=== PATIENT | male | born 1965 | race American Indian/Alaskan Native ===

== ENCOUNTER 2019-11-08 14:07 | Emergency (ER) | payer MEDICAID, OTHER ==
--- NOTE | 2019-11-08 14:09 | EDM.PDOC ---
ED HPI GENERAL MEDICAL PROBLEM - General Chief Complaint: General Stated Complaint: AMBULANCE Time Seen by Provider: 11/08/19 14:09 Source of Information: Reports: Patient, EMS, Old Records, RN, RN Notes Reviewed History Limitations: Reports: No Limitations - History of Present Illness INITIAL COMMENTS - FREE TEXT/NARRATIVE: Pt arrives to ER from home by [facility] with c/o fours days duration of abdominal pain and cramping, nausea, vomiting, loss of appetite, acute flare up of chronic low back pain with sciatica causing leg weakness, and high blood sugars. Pt states he has been too sick to his stomach to be able to keep any medications down for the last 4 days. He has Hx of DM Type 2 NID, GI bleed w/ varices, and chronic low pain. He denies fever, chills, cough, chest pain, body aches, sore throat, rash, shortness of breath, any recent travel, or exposures to Covid cases. Onset: Gradual Onset Date: 11/04/19 Duration: Constant, Getting Worse Location: Reports: Abdomen, Back Quality: Reports: Ache, Same as Previous Episode Severity: Severe Improves with: Reports: None Worsens with: Reports: Eating Associated Symptoms: Reports: No Other Symptoms Back Pain Score (Numeric/FACES): 10 - Related Data Allergies Allergy/AdvReac Type Severity Reaction Status Date / Time No Known Allergies Allergy Verified 11/08/19 14:08 Home Meds: Home Meds lisinopriL [Prinivil] 0 mg PO ASDIRECTED 01/24/19 [History] metFORMIN [Glucophage] 0 mg PO ASDIRECTED 01/24/19 [History] Acetaminophen [Tylenol] 650 mg PO Q6H PRN tablet 02/05/19 [Rx] LORazepam [Ativan] 0 mg IVPUSH TITRATE PRN syringe 02/05/19 [Rx] LORazepam [Ativan] 0 mg PO TITRATE PRN tablet 02/05/19 [Rx] Potassium Chloride [Klor-Con 10] 20 meq PO DAILY tab.er 02/05/19 [Rx] Past Medical History HEENT History: Reports: None Cardiovascular History: Reports: Hypertension Respiratory History: Reports: None Gastrointestinal History: Reports: Gastritis, GI Bleed Genitourinary History: Reports: None Musculoskeletal History: Reports: None Neurological History: Reports: Headaches, Chronic Psychiatric History: Reports: Addiction Endocrine/Metabolic History: Reports: Diabetes, Type II Hematologic History: Reports: None Immunologic History: Reports: None Oncologic (Cancer) History: Reports: None Dermatologic History: Reports: None Social & Family History - Family History Family Medical History: Noncontributory - Caffeine Use Caffeine Use: Reports: Coffee, Soda - Alcohol Use Alcohol Use History: Yes Alcohol Use Frequency: Not Used in Over 6 Months - Living Situation & Occupation Living situation: Reports: with Family Occupation: Unemployed ED ROS GENERAL - Review of Systems Review Of Systems: Comprehensive ROS is negative, except as noted in HPI. ED EXAM, GENERAL - Physical Exam Exam: See Below Exam Limited By: No Limitations General Appearance: Alert, Mild Distress, Other (Active emesis) Eye Exam: Bilateral Eye: EOMI, Normal Inspection (No scleral icterus), PERRL Nose: Normal Inspection, Normal Mucosa, No Blood Throat/Mouth: Normal Lips, Normal Oropharynx, Normal Voice, No Airway Compromise , Other (Dry oral membranes) Head: Atraumatic, Normocephalic Neck: Normal Inspection, Supple, Non-Tender, Full Range of Motion Respiratory/Chest: No Respiratory Distress, Lungs Clear, Normal Breath Sounds, No Accessory Muscle Use, Chest Non-Tender Cardiovascular: Regular Rate, Rhythm, No Edema, Tachycardia Peripheral Pulses: 1+: Posterior Tibial (L), Posterior Tibial (R), 2+: Dorsalis Pedis (L), Dorsalis Pedis (R) GI/Abdominal: Normal Bowel Sounds, Soft, No Distention, No Abnormal Bruit, No Mass, Tender (Generalized abdominal tenderness). No: Guarding, Rigid, Rebound (Male) Exam: Deferred Rectal (Males) Exam: Deferred Back Exam: Decreased Range of Motion, Muscle Spasm (lumbar and lower thoracic), Paraspinal Tenderness (lumbar) Extremities: Normal Inspection, Normal Range of Motion, Non-Tender, Normal Capillary Refill, No Pedal Edema Neurological: Alert, Oriented, CN II-XII Intact, Normal Cognition, No Motor/ Sensory Deficits Psychiatric: Normal Mood Skin Exam: Warm, Dry, Intact, Normal Color, No Rash Course - Vital Signs Last Recorded V/S: Last Vital Signs Temp 97.8 F 11/08/19 14:15 Pulse 114 H 11/08/19 14:15 Resp 16 11/08/19 14:15 BP 145/91 H 11/08/19 14:15 Pulse Ox 97 11/08/19 14:15 - Orders/Labs/Meds Orders: Active Orders 24 hr Category Date Time Status Blood Glucose Check, Bedside [] ONETIME Care 11/08/19 14:15 Active Blood Glucose Check, Bedside [] ONETIME Care 11/08/19 15:50 Ordered Peripheral IV Care [RC] . DIRECTED Care 11/08/19 14:16 Active Insulin Regular, Human [HumuLIN R] 100 unit Med 11/08/19 15:45 Ordered Sodium Chloride 0.9% [Normal Saline] 99 ml IV TITRATE Sodium Chloride 0.9% [Normal Saline] 1,000 ml Med 11/08/19 15:50 Ordered IV .BOLUS Sodium Chloride 0.9% [Saline Flush] Med 11/08/19 14:15 Active 10 ml FLUSH ASDIRECTED PRN Sodium Chloride 0.9% with KCl [Normal Saline with 40 Med 11/08/19 15:45 Ordered mEq KCl] 1,000 ml IV ASDIRECTED Peripheral IV Insertion Adult [OM.PC] Stat Oth 11/08/19 14:15 Ordered Medication Orders Insulin Human Regular 100 unit (/ Sodium Chloride) 100 mls @ IV TITRATE [facility]; Protocol Potassium Chloride/Sodium Chloride (Normal Saline With 40 Meq Kcl) 1,000 mls @ 250 mls/hr IV ASDIRECTED [place] Sodium Chloride (Normal Saline) 1,000 mls @ 999 mls/hr IV .BOLUS ONE Stop: 11/08/19 16:50 Sodium Chloride (Saline Flush) 10 ml FLUSH ASDIRECTED PRN PRN Reason: Keep Vein Open Last Admin: 11/08/19 14:33 Dose: 10 ml Labs: Laboratory Tests 11/08/19 11/08/19 11/08/19 Range/Units 14:08 14:08 14:30 WBC (5.0-10.0) 10^3/uL RBC (4.6-6.2) 10^6/uL Hgb (14.0-18.0) g/dL Hct (40.0-54.0) % MCV (80-100) fL MCH (27.0-34.0) pg MCHC (33.0-35.0) g/dL Plt Count (150-450) 10^3/uL Neut % (Auto) (42.2-75.2) % Lymph % (Auto) (20.5-50.1) % [place] % (Auto) (2-8) % Eos % (Auto) (1.0-3.0) % Baso % (Auto) (0.0-1.0) % PT (9.0-12.0) SEC INR (0.9-1.2) APTT (22.0-34.0) SEC ABG pH 7.23 L (7.35-7.45) ABG pCO2 27 L (35-45) mmHg ABG pO2 84 (70-100) mmHg ABG HCO3 11.0 L (22-26) mmol/L ABG O2 Saturation 95 (95-100) % ABG Base Excess -15 L ((-2)-(+3)) mmol/L O2 Delivery Device Room air Sodium (136-145) mmol/L Potassium (3.5-5.1) mmol/L Chloride (98-107) mmol/L Carbon Dioxide (21-32) mmol/L Anion Gap (7-13) mEq/L BUN (7-18) mg/dL Creatinine (0.70-1.30) mg/dL Est Cr Clr Drug Dosing Estimated GFR (MDRD) BUN/Creatinine Ratio (No establ ref range) Glucose (74-99) mg/dL Lactic Acid (0.4-2.0) mmol/L Calcium (8.5-10.1) mg/dL Magnesium (1.8-2.4) mg/dL Total Bilirubin (0.2-1.0) mg/dL AST (15-37) U/L ALT (16-63) U/L Alkaline Phosphatase (46-116) U/L Total Protein (6.4-8.2) g/dL Albumin (3.4-5.0) g/dL Globulin Albumin/Globulin Ratio Amylase (25-115) U/L Lipase (73-393) U/L Urine Color Yellow (YELLOW) Urine Appearance Slightly cloudy (CLEAR) Urine pH 6.0 (5.0-9.0) Ur Specific [place] >= 1.030 (1.005-1.030) Urine Protein 100 H (NEGATIVE) Urine Glucose (UA) 500 H (NEGATIVE) Urine Ketones 15 H (NEGATIVE) Urine Occult Blood Moderate H (NEGATIVE) Urine Nitrite Negative (NEGATIVE) Urine Bilirubin Negative (NEGATIVE) Urine Urobilinogen 0.2 (0.2-1.0) mg/dL Ur Leukocyte Esterase Negative (NEGATIVE) Urine RBC 5-10 H /HPF Urine WBC 0-5 (0-5/HPF) /HPF Ur Epithelial Cells Few (NOT SEEN) /HPF Amorphous Sediment Rare (NOT SEEN) /HPF Urine Bacteria Rare (0-FEW/HPF) /HPF Urine Mucus Moderate H (NOT SEEN) /LPF Urine Opiates Screen Negative (NEGATIVE) Ur Oxycodone Screen Negative (NEGATIVE) Urine Methadone Screen Negative (NEGATIVE) Ur Barbiturates Screen Negative (NEGATIVE) U Tricyclic Antidepress Negative (NEGATIVE) Ur Phencyclidine Scrn Negative (NEGATIVE) Ur Amphetamine Screen Negative (NEGATIVE) U Methamphetamines Scrn Negative (NEGATIVE) Urine MDMA Screen Negative (NEGATIVE) U Benzodiazepines Scrn Negative (NEGATIVE) Urine Cocaine Screen Negative (NEGATIVE) U Marijuana (THC) Screen Negative (NEGATIVE) Ethyl Alcohol (0) mg/dL Ketones 11/08/19 11/08/19 11/08/19 Range/Units 14:52 14:52 14:52 WBC 11.0 H (5.0-10.0) 10^3/uL RBC 4.85 (4.6-6.2) 10^6/uL Hgb 14.8 (14.0-18.0) g/dL Hct 40.8 (40.0-54.0) % MCV 84.1 D (80-100) fL MCH 30.5 (27.0-34.0) pg MCHC 36.3 H (33.0-35.0) g/dL Plt Count 94 L (150-450) 10^3/uL Neut % (Auto) 85.8 H (42.2-75.2) % Lymph % (Auto) 3.2 L (20.5-50.1) % [place] % (Auto) 10.1 H (2-8) % Eos % (Auto) 0.0 L (1.0-3.0) % Baso % (Auto) 0.9 (0.0-1.0) % PT 10.4 (9.0-12.0) SEC INR 1.1 (0.9-1.2) APTT 23.5 (22.0-34.0) SEC ABG pH (7.35-7.45) ABG pCO2 (35-45) mmHg ABG pO2 (70-100) mmHg ABG HCO3 (22-26) mmol/L ABG O2 Saturation (95-100) % ABG Base Excess ((-2)-(+3)) mmol/L O2 Delivery Device Sodium 124 L (136-145) mmol/L Potassium 2.7 L (3.5-5.1) mmol/L Chloride 83 L (98-107) mmol/L Carbon Dioxide 14 L (21-32) mmol/L Anion Gap 29.7 H (7-13) mEq/L BUN 10 (7-18) mg/dL Creatinine 1.19 (0.70-1.30) mg/dL Est Cr Clr Drug Dosing TNP Estimated GFR (MDRD) > 60 BUN/Creatinine Ratio 8.4 (No establ ref range) Glucose 524 H* (74-99) mg/dL Lactic Acid (0.4-2.0) mmol/L Calcium 7.4 L (8.5-10.1) mg/dL Magnesium 2.2 (1.8-2.4) mg/dL Total Bilirubin 2.9 H (0.2-1.0) mg/dL AST 221 H (15-37) U/L ALT 119 H (16-63) U/L Alkaline Phosphatase 113 (46-116) U/L Total Protein 7.0 (6.4-8.2) g/dL Albumin 3.2 L (3.4-5.0) g/dL Globulin 3.8 Albumin/Globulin Ratio 0.84 Amylase 199 H (25-115) U/L Lipase 1572 H (73-393) U/L Urine Color (YELLOW) Urine Appearance (CLEAR) Urine pH (5.0-9.0) Ur Specific [place] (1.005-1.030) Urine Protein (NEGATIVE) Urine Glucose (UA) (NEGATIVE) Urine Ketones (NEGATIVE) Urine Occult Blood (NEGATIVE) Urine Nitrite (NEGATIVE) Urine Bilirubin (NEGATIVE) Urine Urobilinogen (0.2-1.0) mg/dL Ur Leukocyte Esterase (NEGATIVE) Urine RBC /HPF Urine WBC (0-5/HPF) /HPF Ur Epithelial Cells (NOT SEEN) /HPF Amorphous Sediment (NOT SEEN) /HPF Urine Bacteria (0-FEW/HPF) /HPF Urine Mucus (NOT SEEN) /LPF Urine Opiates Screen (NEGATIVE) Ur Oxycodone Screen (NEGATIVE) Urine Methadone Screen (NEGATIVE) Ur Barbiturates Screen (NEGATIVE) U Tricyclic Antidepress (NEGATIVE) Ur Phencyclidine Scrn (NEGATIVE) Ur Amphetamine Screen (NEGATIVE) U Methamphetamines Scrn (NEGATIVE) Urine MDMA Screen (NEGATIVE) U Benzodiazepines Scrn (NEGATIVE) Urine Cocaine Screen (NEGATIVE) U Marijuana (THC) Screen (NEGATIVE) Ethyl Alcohol 161 (0) mg/dL Ketones Positive 11/08/19 Range/Units 14:52 WBC (5.0-10.0) 10^3/uL RBC (4.6-6.2) 10^6/uL Hgb (14.0-18.0) g/dL Hct (40.0-54.0) % MCV (80-100) fL MCH (27.0-34.0) pg MCHC (33.0-35.0) g/dL Plt Count (150-450) 10^3/uL Neut % (Auto) (42.2-75.2) % Lymph % (Auto) (20.5-50.1) % [place] % (Auto) (2-8) % Eos % (Auto) (1.0-3.0) % Baso % (Auto) (0.0-1.0) % PT (9.0-12.0) SEC INR (0.9-1.2) APTT (22.0-34.0) SEC ABG pH (7.35-7.45) ABG pCO2 (35-45) mmHg ABG pO2 (70-100) mmHg ABG HCO3 (22-26) mmol/L ABG O2 Saturation (95-100) % ABG Base Excess ((-2)-(+3)) mmol/L O2 Delivery Device Sodium (136-145) mmol/L Potassium (3.5-5.1) mmol/L Chloride (98-107) mmol/L Carbon Dioxide (21-32) mmol/L Anion Gap (7-13) mEq/L BUN (7-18) mg/dL Creatinine (0.70-1.30) mg/dL Est Cr Clr Drug Dosing Estimated GFR (MDRD) BUN/Creatinine Ratio (No establ ref range) Glucose (74-99) mg/dL Lactic Acid 7.2 H* (0.4-2.0) mmol/L Calcium (8.5-10.1) mg/dL Magnesium (1.8-2.4) mg/dL Total Bilirubin (0.2-1.0) mg/dL AST (15-37) U/L ALT (16-63) U/L Alkaline Phosphatase (46-116) U/L Total Protein (6.4-8.2) g/dL Albumin (3.4-5.0) g/dL Globulin Albumin/Globulin Ratio Amylase (25-115) U/L Lipase (73-393) U/L Urine Color (YELLOW) Urine Appearance (CLEAR) Urine pH (5.0-9.0) Ur Specific [place] (1.005-1.030) Urine Protein (NEGATIVE) Urine Glucose (UA) (NEGATIVE) Urine Ketones (NEGATIVE) Urine Occult Blood (NEGATIVE) Urine Nitrite (NEGATIVE) Urine Bilirubin (NEGATIVE) Urine Urobilinogen (0.2-1.0) mg/dL Ur Leukocyte Esterase (NEGATIVE) Urine RBC /HPF Urine WBC (0-5/HPF) /HPF Ur Epithelial Cells (NOT SEEN) /HPF Amorphous Sediment (NOT SEEN) /HPF Urine Bacteria (0-FEW/HPF) /HPF Urine Mucus (NOT SEEN) /LPF Urine Opiates Screen (NEGATIVE) Ur Oxycodone Screen (NEGATIVE) Urine Methadone Screen (NEGATIVE) Ur Barbiturates Screen (NEGATIVE) U Tricyclic Antidepress (NEGATIVE) Ur Phencyclidine Scrn (NEGATIVE) Ur Amphetamine Screen (NEGATIVE) U Methamphetamines Scrn (NEGATIVE) Urine MDMA Screen (NEGATIVE) U Benzodiazepines Scrn (NEGATIVE) Urine Cocaine Screen (NEGATIVE) U Marijuana (THC) Screen (NEGATIVE) Ethyl Alcohol (0) mg/dL Ketones Meds: Medications Generic Name Dose Route Start Last Admin Trade Name Freq PRN Reason Stop Dose Admin Insulin Human Regular 100 unit 100 mls @ 11/08/19 15:45 / Sodium Chloride IV TITRATE [facility] Protocol 0.1 UNITS/KG/HR Potassium Chloride/Sodium Chloride 1,000 mls @ 250 mls/hr 11/08/19 15:45 Normal Saline With 40 Meq Kcl IV ASDIRECTED [facility] Sodium Chloride 1,000 mls @ 999 mls/hr 11/08/19 15:50 Normal Saline IV 11/08/19 16:50 .BOLUS ONE Sodium Chloride 10 ml 11/08/19 14:15 11/08/19 14:33 Saline Flush FLUSH 10 ml ASDIRECTED PRN Administration Keep Vein Open Discontinued Medications Generic Name Dose Route Start Last Admin Trade Name Freq PRN Reason Stop Dose Admin Haloperidol Lactate 2.5 mg 11/08/19 15:49 Haldol IVPUSH 11/08/19 15:50 ONETIME ONE Hydromorphone HCl 1 mg 11/08/19 14:17 11/08/19 14:33 Dilaudid IVPUSH 11/08/19 14:18 1 mg ONETIME ONE Administration Hydromorphone HCl 1 mg 11/08/19 15:48 Dilaudid IVPUSH 11/08/19 15:49 ONETIME ONE Sodium Chloride 1,000 mls @ 999 mls/hr 11/08/19 14:16 11/08/19 14:33 Normal Saline IV 11/08/19 15:16 999 mls/hr .BOLUS ONE Administration Insulin Human Regular 10 unit 11/08/19 14:17 11/08/19 14:58 Humulin R IV 11/08/19 14:18 10 units ONETIME ONE Administration Lorazepam 1 mg 11/08/19 14:49 11/08/19 14:58 Ativan IVPUSH 11/08/19 14:50 1 mg ONETIME ONE Administration Metoclopramide HCl 10 mg 11/08/19 15:10 11/08/19 15:37 Reglan IVPUSH 11/08/19 15:11 10 mg ONETIME ONE Administration Octreotide Acetate 50 mcg 11/08/19 14:17 11/08/19 14:32 Sandostatin IVPUSH 11/08/19 14:18 50 mcg ONETIME ONE Administration Ondansetron HCl 4 mg 11/08/19 14:16 11/08/19 14:32 Zofran IV 11/08/19 14:17 4 mg ONETIME ONE Administration Ondansetron HCl 4 mg 11/08/19 15:31 11/08/19 15:37 Zofran IV 11/08/19 15:32 4 mg ONETIME ONE Administration Pantoprazole Sodium 80 mg 11/08/19 14:16 11/08/19 14:32 Protonix Iv IVPUSH 11/08/19 14:17 80 mg .BOLUS ONE Administration - Re-Assessments/Exams Free Text/Narrative Re-Assessment/Exam: 11/08/19 15:50 Pt with DKA, alcohol abuse, Hx of GI bleed with varices, and with intractable vomiting and dry heaves. Unable to lay still for CT Abd/Pelvis at this time to evaluate pancreatitis. Pt will be transferred by ALS ground ambulance to [facility] in to a higher level of care. Dr. Zurita has accepted the pt as a direct admit. Departure - Departure Time of Disposition: 15:46 Disposition: DC/Tfer to Acute Hospital 02 Condition: Serious, Critical Clinical Impression: Alcohol abuse, Hypokalemia, Noncompliance with medication regimen DKA (diabetic ketoacidoses) Qualifiers: Diabetes mellitus type: type 2 Diabetes mellitus complication detail: without coma Qualified Code(s): E11.10 - Type 2 diabetes mellitus with ketoacidosis without coma Pancreatitis, alcoholic, acute Qualifiers: Acute pancreatitis complication: unspecified Qualified Code(s): K85.20 - Alcohol induced acute pancreatitis without necrosis or infection Alcohol intoxication Qualifiers: Complication of substance-induced condition: with unspecified complication Qualified Code(s): F10.929 - Alcohol use, unspecified with intoxication, unspecified Intractable vomiting Qualifiers: Vomiting type: unspecified Nausea presence: with nausea Qualified Code(s): R11.2 - Nausea with vomiting, unspecified - Discharge Information *PRESCRIPTION DRUG MONITORING PROGRAM REVIEWED*: Not Applicable *COPY OF PRESCRIPTION DRUG MONITORING REPORT IN PATIENT ALYSSA: Not Applicable Forms: ED Department Discharge, Interfacility Transfer [facility] Sepsis Event Note - Focused Exam Vital Signs: Vital Signs Temp Pulse Resp BP Pulse Ox 11/08/19 14:15 97.8 F 114 H 16 145/91 H 97 Date Exam was Performed: 11/08/19 Time Exam was Performed: 15:50 - My Orders Last 24 Hours: My Active Orders 11/08/19 14:15 Blood Glucose Check, Bedside [RC] ONETIME Sodium Chloride 0.9% [Saline Flush] 10 ml FLUSH ASDIRECTED PRN Peripheral IV Insertion Adult [OM.PC] Stat 11/08/19 14:16 Peripheral IV Care [RC] . DIRECTED 11/08/19 15:45 Insulin Regular, Human [HumuLIN R] 100 unit Sodium Chloride 0.9% [Normal Saline] 99 ml IV TITRATE Sodium Chloride 0.9% with KCl [Normal Saline with 40 mEq KCl] 1,000 ml IV ASDIRECTED 11/08/19 15:50 Blood Glucose Check, Bedside [RC] ONETIME Sodium Chloride 0.9% [Normal Saline] 1,000 ml IV .BOLUS - Assessment/Plan Last 24 Hours: My Active Orders 11/08/19 14:15 Blood Glucose Check, Bedside [RC] ONETIME Sodium Chloride 0.9% [Saline Flush] 10 ml FLUSH ASDIRECTED PRN Peripheral IV Insertion Adult [OM.PC] Stat 11/08/19 14:16 Peripheral IV Care [RC] . DIRECTED 11/08/19 15:45 Insulin Regular, Human [HumuLIN R] 100 unit Sodium Chloride 0.9% [Normal Saline] 99 ml IV TITRATE Sodium Chloride 0.9% with KCl [Normal Saline with 40 mEq KCl] 1,000 ml IV ASDIRECTED 11/08/19 15:50 Blood Glucose Check, Bedside [RC] ONETIME Sodium Chloride 0.9% [Normal Saline] 1,000 ml IV .BOLUS
[2019-11-08] MEDS ORDERED: Sodium Chloride 0.9% 10 ML Syringe FLUSH PRN (14:15)
[2019-11-08] MEDS ORDERED: Sodium Chloride 0.9% 1,000 ML IV ONE ×2 (14:16→15:50)
[2019-11-08] MEDS ORDERED: Pantoprazole 40 MG Vial IVPUSH ONE (14:16)
[2019-11-08] MEDS ORDERED: Ondansetron 4 MG/2 ML SDV IV ONE ×2 (14:16→15:31)
[2019-11-08] MEDS ORDERED: Octreotide 100 MCG/ML SDV IVPUSH ONE (14:17)
[2019-11-08] MEDS ORDERED: Insulin Regular, Human 100 Units/ML 3 ML Vial IV ONE (14:17)
[2019-11-08] MEDS ORDERED: HYDROmorphone 1 MG/ML Syringe IVPUSH ONE ×2 (14:17→15:48)
[2019-11-08] MEDS ORDERED: LORazepam 2 MG/ML SDV IVPUSH ONE (14:49)
[2019-11-08] MEDS ORDERED: Metoclopramide 10 MG/2 ML SDV IVPUSH ONE (15:10)
[2019-11-08 15:25] LABS: PTT,PARTIAL THROMBOPLSTIN TIME 23.5 SEC (22.0-34.0)
[2019-11-08 15:29] LABS: SODIUM,NA 124 mmol/L (136-145)
[2019-11-08 15:30] LABS: ANION GAP 29.7 mEq/L (7-13); CHLORIDE,CL 83 mmol/L (98-107)
[2019-11-08 15:32] LABS: BASE EXCESS ARTERIAL -15 mmol/L ((-2)-(+3)); O2 DELIVERY DEVICE ROOM AIR; O2 SATURATION ARTERIAL 95 % (95-100); PCO2 ARTERIAL 27 mmHg (35-45); PO2 ARTERIAL 84 mmHg (70-100)
[2019-11-08] MEDS ORDERED: Sodium Chloride 0.9% with KCl 1,000 ML IV SCH (15:45)
[2019-11-08] MEDS ORDERED: Haloperidol Lactate 5 MG/ML SDV IVPUSH ONE (15:49)
== END 2019-11-08 17:27 ==
LOC: DL.ED 14:07
DX: E11.10 Type 2 diabetes mellitus with ketoacidosis without coma (principal); F10.129 Alcohol abuse with intoxication, unspecified; K85.20 Alcohol induced acute pancreatitis without necrosis or infection; E87.6 Hypokalemia; I10 Essential (primary) hypertension; E11.9 Type 2 diabetes mellitus without complications; Z79.84 Long term (current) use of oral hypoglycemic drugs; Z91.14 Patient's other noncompliance with medication regimen; Z79.899 Other long term (current) drug therapy
CPT/HCPCS: 36415; 36600; 80053; 80305; 80307; 81001; 82009; 82150; 82803; 82962; 83605; 83690; 83735; 85025; 85610; 85730; 96361; 96374; 96375; 96376; 99285; C9113; J1170; J1630; J1815; J2060; J2354; J2405; J2765; J3480; J7030; J7050

== ENCOUNTER 2020-01-09 22:30 | Emergency (ER) | payer MEDICAID, OTHER ==
[2020-01-09] MEDS ORDERED: Fluorescein 1 MG Ophth Strip EYERT ONE (23:26)
[2020-01-09] MEDS ORDERED: Proparacaine 0.5% Ophth Soln 15 ML Bottle EYERT STA (23:26)
[2020-01-09] MEDS ORDERED: Tetracaine HCl/PF 0.5% 4 ML Bottle EYERT ONE (23:30)
--- NOTE | 2020-01-09 23:30 | EDM.PDOC ---
ED HPI GENERAL MEDICAL PROBLEM - General Chief Complaint: Eye Problems Stated Complaint: EYE PROBLEMS Time Seen by Provider: 01/09/20 23:26 Source of Information: Reports: Patient History Limitations: Reports: No Limitations - History of Present Illness INITIAL COMMENTS - FREE TEXT/NARRATIVE: Patient comes emergency department today with complaints of a very painful right eye. This patient 2 days ago developed a stye on his right upper eyelid. He has been putting some eyedrops [id number] into the his eye the stye is slowly gotten better. Although this morning when he woke up he had severe pain to his right eye. It is very bloodshot reddened and it is draining clear fluid. Does not recall scratching it or injuring it but he woke up with a very painful right eye. He denies any visual acuity changes. No diplopia. No flashers or floaters and no loss of vision. 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 Right Eye Pain Score (Numeric/FACES): 10 - Related Data Allergies Allergy/AdvReac Type Severity Reaction Status Date / Time No Known Allergies Allergy Verified 01/09/20 23:18 Home Meds: Home Meds lisinopriL [Prinivil] 0 mg PO ASDIRECTED 01/24/19 [History] metFORMIN [Glucophage] 0 mg PO ASDIRECTED 01/24/19 [History] Acetaminophen [Tylenol] 650 mg PO Q6H PRN tablet 02/05/19 [Rx] LORazepam [Ativan] 0 mg IVPUSH TITRATE PRN syringe 02/05/19 [Rx] LORazepam [Ativan] 0 mg PO TITRATE PRN tablet 02/05/19 [Rx] Potassium Chloride [Klor-Con 10] 20 meq PO DAILY tab.er 02/05/19 [Rx] Past Medical History HEENT History: Reports: None Cardiovascular History: Reports: Hypertension Respiratory History: Reports: None Gastrointestinal History: Reports: Gastritis, GI Bleed Genitourinary History: Reports: None Musculoskeletal History: Reports: None Neurological History: Reports: Headaches, Chronic Psychiatric History: Reports: Addiction Endocrine/Metabolic History: Reports: Diabetes, Type II Hematologic History: Reports: None Immunologic History: Reports: None Oncologic (Cancer) History: Reports: None Dermatologic History: Reports: None Social & Family History - Family History Family Medical History: Noncontributory - Tobacco Use Smoking Status *Q: Never Smoker Second Hand Smoke Exposure: No - Caffeine Use Caffeine Use: Reports: Soda - Recreational Drug Use Recreational Drug Use: No - Living Situation & Occupation Living situation: Reports: with Family Occupation: Unemployed ED ROS GENERAL - Review of Systems Review Of Systems: Comprehensive ROS is negative, except as noted in HPI. ED EXAM GENERAL W FULL EYE - Physical Exam Exam: See Below Exam Limited By: No Limitations General Appearance: Alert, WD/WN, Moderate Distress Eye Exam: Right Eye: Conjunctival Injection (Almost the entire sclera is very injected and minnimally swollen. There is clear exudate.), Corneal Abrasion (Tetracaine was instilled in the right eye. With immediate pain relief. With the use of fluorescein staining there is clearly about a 1 cm laceration just over the iris at the 6 o'clock position. The rest of the eye there is no abrasion. There is no foreign material.), Left Eye: Normal Inspection, Bilateral Eye: EOMI, PERRL Eyelids: Right: Stye, Left: Normal Appearance Conjunctiva & Sclera: Right: Conjunctival Edema, Discharge (Clear), Injected Cornea Exam: Right: Corneal Abrasion, Examined with Flourescein Pupils: Normal Accommodation Pupillary Size: Bilateral: 4 mm Pupillary Reaction: Bilateral: Brisk Respiratory/Chest: No Respiratory Distress Cardiovascular: Normal Peripheral Pulses Neurological: Alert, Oriented, Normal Cognition, No Motor/Sensory Deficits Psychiatric: Anxious Skin Exam: Warm, Dry, Intact, Normal Color Course - Vital Signs Last Recorded V/S: Last Vital Signs Temp 98.1 F 01/09/20 23:11 Pulse 101 H 01/09/20 23:11 Resp 19 01/09/20 23:11 BP 159/95 H 01/09/20 23:11 Pulse Ox 100 01/09/20 23:11 - Orders/Labs/Meds Meds: Medications Discontinued Medications Generic Name Dose Route Start Last Admin Trade Name Luisana PRN Reason Stop Dose Admin Hydrocodone Bitart/Acetaminophen 1 tab 01/09/20 23:36 01/09/20 23:51 [place] 325-10 Mg PO 01/09/20 23:37 1 tab ONETIME ONE Administration Ciprofloxacin 1 ml 01/09/20 23:45 01/09/20 23:53 Ciloxan 0.3% Ophth Soln EYERT Not Given Q4H ANSON Fluorescein Sodium 1 mg 01/09/20 23:26 01/09/20 23:35 Ful-Joy EYERT 01/09/20 23:27 1 mg ONETIME ONE Administration Ibuprofen 600 mg 01/09/20 23:36 01/09/20 23:52 Motrin PO 01/09/20 23:37 600 mg ONETIME ONE Administration Proparacaine HCl 1 ml 01/09/20 23:26 01/09/20 23:52 Proparacaine 0.5% Ophth Soln EYERT 01/09/20 23:27 Not Given NOW STA Tetracaine HCl 1 ml 01/09/20 23:30 01/09/20 23:35 Tetracaine 0.5% Steri-Unit Heather EYERT 01/09/20 23:31 1 dose ASDIRECTED ONE Administration - Re-Assessments/Exams Free Text/Narrative Re-Assessment/Exam: 01/10/20 00:51 What most likely happened is that the patient had the stye on his upper eyelid and during the night the stye was irritating him any accidentally caused a corneal abrasion to the right eye. The sclera is quite injected and minimally swollen. We will place him on antibiotic drops. Ciprofloxacin 2 drops every 4 hours. Given some pain medicine. I discussed with him if he is not improving rapidly over the next 24 to 48 hours he needs to see optometry or ophthalmology. He is understanding of this his questions were answered. Departure - Departure Time of Disposition: 23:38 Disposition: Home, Self-Care 01 Clinical Impression: Corneal abrasion Qualifiers: Encounter type: initial encounter Laterality: right Qualified Code(s): S05.01XA - Injury of conjunctiva and corneal abrasion without foreign body, right eye, initial encounter Stye Qualifiers: Laterality: right Eyelid: upper Qualified Code(s): H00.011 - Hordeolum externum right upper eyelid - Discharge Information Instructions: Corneal Abrasion, Corneal Abrasion, [id number] Referrals: PCP,None [Primary Care Provider] - Forms: ED Department Discharge Additional Instructions: Tylenol and or Ibuprofen as needed for pain. Warm packs 6 times a day to the stye on the right upper eye lid. No contacts until your eye symptoms have resolved. Cipro eye drops, 2 drops to the right eye every 4 hrs while awake for the next 5 days. Bottle dispensed from the ED. You should improve 90% in 24 hours, and 100% in 48 hours. If you are not following this pattern you must be seen by optometry or opthamology. If pain not controlled with above. [place] 1 tablet every 6 hrs with food as needed for pain caution sedation. Return to the ED if new or worsening symptoms. Sepsis Event Note (ED) - Evaluation Sepsis Screening Result: No Definite Risk - Focused Exam Vital Signs: Vital Signs Temp Pulse Resp BP Pulse Ox 01/09/20 23:11 98.1 F 101 H 19 159/95 H 100 - Assessment/Plan Assessment:: Right eye corneal abrasion. Right eye upper eye lid stye. Plan: Tylenol and or Ibuprofen as needed for pain. Warm packs 6 times a day to the stye on the right upper eye lid. No contacts until your eye symptoms have resolved. Cipro eye drops, 2 drops to the right eye every 4 hrs while awake for the next 5 days. Bottle dispensed from the ED. You should improve 90% in 24 hours, and 100% in 48 hours. If you are not following this pattern you must be seen by optometry or opthamology. If pain not controlled with above. [place] 1 tablet every 6 hrs with food as needed for pain caution sedation. Return to the ED if new or worsening symptoms.
[2020-01-09] MEDS ORDERED: Ibuprofen 600 MG Tab PO ONE (23:36)
[2020-01-09] MEDS ORDERED: Acetaminophen/HYDROcodone 325-10 MG Tab PO ONE (23:36)
[2020-01-09] MEDS ORDERED: Ciprofloxacin 0.3% Ophth Soln 5 ML Bottle EYERT SCH (23:45)
== END 2020-01-09 23:53 | disposition home or self-care (01) ==
LOC: DL.ED 22:30
DX: S05.01XA Injury of conjunctiva and corneal abrasion without foreign body, right eye, initial encounter (principal); H00.011 Hordeolum externum right upper eyelid; I10 Essential (primary) hypertension; E11.9 Type 2 diabetes mellitus without complications; Z79.84 Long term (current) use of oral hypoglycemic drugs; Z79.899 Other long term (current) drug therapy; X58.XXXA Exposure to other specified factors, initial encounter
CPT/HCPCS: 99283; A9270

== ENCOUNTER 2020-01-22 23:57 | Emergency (ER) | payer MEDICAID, OTHER ==
[2020-01-23] MEDS ORDERED: Aspirin 81 MG Tab.Chew PO ONE (00:06)
[2020-01-23] MEDS ORDERED: Nitroglycerin 0.4 MG Tab.SL SL ONE ×2 (00:07→00:59)
--- NOTE | 2020-01-23 00:34 | EDM.PDOC ---
ED HPI GENERAL MEDICAL PROBLEM - General Chief Complaint: Cardiovascular Problem Stated Complaint: CHEST PAIN Time Seen by Provider: 01/23/20 00:01 Source of Information: Reports: Patient History Limitations: Reports: No Limitations - History of Present Illness INITIAL COMMENTS - FREE TEXT/NARRATIVE: ED with c/o left chest pain has been intermittent for past couple of months to night more often and more severe. Seen at [facility] yesterday started on Lisnopril and metoprolol. Metformin. 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 No nausea. rates 7/10 worse with palpation and movement. Chest Pain Score (Numeric/FACES): 10 - Related Data Allergies Allergy/AdvReac Type Severity Reaction Status Date / Time No Known Allergies Allergy Verified 01/09/20 23:18 Home Meds: Home Meds lisinopriL [Prinivil] 10 mg PO ASDIRECTED 01/24/19 [History] metFORMIN [Glucophage] 1,000 mg PO ASDIRECTED 01/24/19 [History] Acetaminophen [Tylenol] 650 mg PO Q6H PRN tablet 02/05/19 [Rx] LORazepam [Ativan] 0 mg PO TITRATE PRN tablet 02/05/19 [Rx] Potassium Chloride [Klor-Con 10] 20 meq PO DAILY tab.er 02/05/19 [Rx] Metoprolol Tartrate [Lopressor] 37.5 mg PO BID 01/23/20 [History] glyBURIDE [Micronase] 5 mg PO DAILY 01/23/20 [History] Past Medical History HEENT History: Reports: None Cardiovascular History: Reports: Hypertension Respiratory History: Reports: None Gastrointestinal History: Reports: Gastritis, GI Bleed Genitourinary History: Reports: None Musculoskeletal History: Reports: None Neurological History: Reports: Headaches, Chronic Psychiatric History: Reports: Addiction Endocrine/Metabolic History: Reports: Diabetes, Type II Hematologic History: Reports: None Immunologic History: Reports: None Oncologic (Cancer) History: Reports: None Dermatologic History: Reports: None Social & Family History - Family History Family Medical History: Noncontributory - Tobacco Use Smoking Status *Q: Never Smoker Second Hand Smoke Exposure: No - Caffeine Use Caffeine Use: Reports: None - Recreational Drug Use Recreational Drug Use: No - Living Situation & Occupation Living situation: Reports: with Family Occupation: Unemployed ED ROS GENERAL - Review of Systems Review Of Systems: Comprehensive ROS is negative, except as noted in HPI. ED EXAM, GENERAL - Physical Exam Exam: See Below Exam Limited By: No Limitations General Appearance: Alert, Anxious, Mild Distress Eye Exam: Bilateral Eye: EOMI Ears: Normal External Exam, Hearing Grossly Normal Nose: Normal Inspection Throat/Mouth: Normal Inspection Head: Atraumatic, Normocephalic Neck: Normal Inspection Respiratory/Chest: No Respiratory Distress, Lungs Clear, Normal Breath Sounds Cardiovascular: Normal Peripheral Pulses, Regular Rate, Rhythm GI/Abdominal: Normal Bowel Sounds Extremities: Normal Inspection, Normal Range of Motion Neurological: Alert, Oriented, Normal Cognition Psychiatric: Normal Affect, Normal Mood Skin Exam: Warm, Dry, Intact, Normal Color EKG INTERPRETATION Rhythm: NSR Rate (Beats/Min): 71 (1st degree AVB) Course - Vital Signs Last Recorded V/S: Last Vital Signs Temp 98.6 F 01/23/20 04:45 Pulse 64 01/23/20 04:45 Resp 15 01/23/20 04:45 BP 121/78 01/23/20 04:45 Pulse Ox 93 L 01/23/20 04:45 - Orders/Labs/Meds Orders: Active Orders 24 hr Category Date Time Status EKG 12 Lead [EKG Documentation Completion] [RC] AM Care 01/23/20 05:00 Active EKG Documentation Completion [RC] STAT Care 01/23/20 00:01 Active Labs: Laboratory Tests 01/23/20 01/23/20 01/23/20 Range/Units 00:53 00:53 00:53 WBC 5.5 (5.0-10.0) 10^3/uL RBC 4.58 L (4.6-6.2) 10^6/uL Hgb 15.1 (14.0-18.0) g/dL Hct 43.9 (40.0-54.0) % MCV 95.9 D (80-100) fL MCH 33.0 (27.0-34.0) pg MCHC 34.4 (33.0-35.0) g/dL Plt Count 237 D (150-450) 10^3/uL Neut % (Auto) 59.4 (42.2-75.2) % Lymph % (Auto) 28.1 (20.5-50.1) % Hood % (Auto) 10.1 H (2-8) % Eos % (Auto) 2.2 (1.0-3.0) % Baso % (Auto) 0.2 (0.0-1.0) % PT 9.7 (9.0-12.0) SEC INR 1.0 (0.9-1.2) Sodium 135 L D (136-145) mmol/L Potassium 4.5 D (3.5-5.1) mmol/L Chloride 100 D (98-107) mmol/L Carbon Dioxide 29 D (21-32) mmol/L Anion Gap 10.5 (7-13) mEq/L BUN 14 (7-18) mg/dL Creatinine 0.85 (0.70-1.30) mg/dL Est Cr Clr Drug Dosing 100.20 mL/min Estimated GFR (MDRD) > 60 BUN/Creatinine Ratio 16.5 (No establ ref range) Glucose 207 H (74-99) mg/dL Calcium 8.8 (8.5-10.1) mg/dL Total Bilirubin 0.6 (0.2-1.0) mg/dL AST 23 (15-37) U/L ALT 57 (16-63) U/L Alkaline Phosphatase 60 (46-116) U/L Troponin I < 0.017 (0.000-0.056) ng/mL B-Natriuretic Peptide 20 (0-100) pg/ml Total Protein 7.4 (6.4-8.2) g/dL Albumin 3.6 (3.4-5.0) g/dL Globulin 3.8 Albumin/Globulin Ratio 0.95 Ethyl Alcohol < 3 (0) mg/dL 01/23/20 Range/Units 05:07 WBC (5.0-10.0) 10^3/uL RBC (4.6-6.2) 10^6/uL Hgb (14.0-18.0) g/dL Hct (40.0-54.0) % MCV (80-100) fL MCH (27.0-34.0) pg MCHC (33.0-35.0) g/dL Plt Count (150-450) 10^3/uL Neut % (Auto) (42.2-75.2) % Lymph % (Auto) (20.5-50.1) % Hood % (Auto) (2-8) % Eos % (Auto) (1.0-3.0) % Baso % (Auto) (0.0-1.0) % PT (9.0-12.0) SEC INR (0.9-1.2) Sodium (136-145) mmol/L Potassium (3.5-5.1) mmol/L Chloride (98-107) mmol/L Carbon Dioxide (21-32) mmol/L Anion Gap (7-13) mEq/L BUN (7-18) mg/dL Creatinine (0.70-1.30) mg/dL Est Cr Clr Drug Dosing mL/min Estimated GFR (MDRD) BUN/Creatinine Ratio (No establ ref range) Glucose (74-99) mg/dL Calcium (8.5-10.1) mg/dL Total Bilirubin (0.2-1.0) mg/dL AST (15-37) U/L ALT (16-63) U/L Alkaline Phosphatase (46-116) U/L Troponin I < 0.017 (0.000-0.056) ng/mL B-Natriuretic Peptide (0-100) pg/ml Total Protein (6.4-8.2) g/dL Albumin (3.4-5.0) g/dL Globulin Albumin/Globulin Ratio Ethyl Alcohol (0) mg/dL Meds: Medications Discontinued Medications Generic Name Dose Route Start Last Admin Trade Name Freq PRN Reason Stop Dose Admin Aspirin 324 mg 01/23/20 00:06 01/23/20 00:31 Aspirin PO 01/23/20 00:07 324 mg ONETIME ONE Administration Ketorolac Tromethamine 30 mg 01/23/20 05:52 01/23/20 06:07 Toradol IVPUSH 01/23/20 05:53 30 mg ONETIME ONE Administration Nitroglycerin 0.4 mg 01/23/20 00:07 01/23/20 00:32 Nitrostat SL 01/23/20 00:08 0.4 mg ONETIME ONE Administration Nitroglycerin 0.4 mg 01/23/20 00:59 01/23/20 01:02 Nitrostat SL 01/23/20 01:00 0.4 mg ONETIME ONE Administration - Re-Assessments/Exams Free Text/Narrative Re-Assessment/Exam: 01/23/20 06:19 Awakened, Results reviewed with patient, c/o intermittent discomfort. Repeat EKG no change. Departure - Departure Time of Disposition: 06:19 Disposition: Home, Self-Care 01 Condition: Good Clinical Impression: Chest pain, non-cardiac Instructions: Chest Wall Pain, [id number] Forms: ED Department Discharge Additional Instructions: light activity clinic follow up next week urgent follow up if worsening and associated with fever, breathing difficulty poor tolerance to exertional activities tylenol 650mg every 4 hours as needed for discofmfort continue home medications Sepsis Event Note (ED) - Evaluation Sepsis Screening Result: No Definite Risk - Focused Exam Vital Signs: Vital Signs Temp Pulse Resp BP BP Pulse Ox 01/23/20 04:45 98.6 F 64 15 121/78 93 L 01/23/20 03:45 98.6 F 65 18 119/73 01/23/20 03:30 98.7 F 67 19 118/72 98 01/23/20 03:00 98.7 F 67 18 133/86 98 01/23/20 02:30 98.2 F 66 16 133/86 98 01/23/20 01:02 110/74 01/23/20 00:32 136/86 01/23/20 00:00 97.7 F 69 18 155/93 H 99 - My Orders Last 24 Hours: My Active Orders 01/23/20 00:01 EKG Documentation Completion [RC] STAT 01/23/20 05:00 EKG 12 Lead [EKG Documentation Completion] [RC] AM - Assessment/Plan Last 24 Hours: My Active Orders 01/23/20 00:01 EKG Documentation Completion [RC] STAT 01/23/20 05:00 EKG 12 Lead [EKG Documentation Completion] [RC] AM
--- NOTE | 2020-01-23 00:59 | CR ---
PROCEDURE INFORMATION: Exam: XR Chest, 1 View Exam date and time: 01/23/2020 12:37 AM Age: 54 years old Clinical indication: Chest pain TECHNIQUE: Imaging protocol: XR of the chest Views: 1 view. COMPARISON: CR Chest 1V Frontal 01/27/2019 3:28 PM FINDINGS: Lungs: The lungs are symmetric, well expanded and clear. Pleural space: There are no pleural effusions. There is no pneumothorax. Heart/Mediastinum: The cardiac silhouette is enlarged. The mediastinal and hilar contours are normal. The pulmonary vessels are within normal limits. Bones/joints: No acute osseous pathology is identified. IMPRESSION: Cardiomegaly. No acute CHF or pneumonia identified.
[2020-01-23 01:23] LABS: ANION GAP 10.5 mEq/L (7-13); CHLORIDE,CL 100 mmol/L (98-107); SODIUM,NA 135 mmol/L (136-145)
[2020-01-23] MEDS ORDERED: Ketorolac 30 MG/ML SDV IVPUSH ONE (05:52)
== END 2020-01-23 06:14 | disposition home or self-care (01) ==
LOC: DL.ED 23:57
DX: R07.89 Other chest pain (principal); I10 Essential (primary) hypertension; E11.9 Type 2 diabetes mellitus without complications; Z79.84 Long term (current) use of oral hypoglycemic drugs; Z79.899 Other long term (current) drug therapy
CPT/HCPCS: 36415; 71045; 80053; 80307; 83880; 84484; 85025; 85610; 93005; 96374; 99283; 99285; A9270; J1885

== ENCOUNTER 2020-11-01 14:51 | Inpatient (IN) | payer MEDICAID ==
--- NOTE | 2020-11-01 15:53 | CR ---
PROCEDURE INFORMATION: Exam: XR Chest Exam date and time: 11/01/2020 3:48 PM Age: 55 years old Clinical indication: Other: Chest pain TECHNIQUE: Imaging protocol: XR of the chest. Views: 1 view. COMPARISON: CR Chest 1V Frontal 01/23/2020 12:37 AM FINDINGS: Airway: The airways are patent. Lungs: Low lung volumes causes crowding of the bronchovascular structures. No acute interstitial or airspace disease. Pleural spaces: There are no pleural effusions present. There is no evidence of pneumothorax. Heart/Mediastinum: Cardiomediastinal silhouette is magnified due to technique. Bones/joints: No acute skeletal abnormality or aggressive osseous lesion. IMPRESSION: Negative for acute thoracic pathology.
[2020-11-01] MEDS ORDERED: Ondansetron 4 MG/2 ML SDV IV ONE (15:59)
[2020-11-01] MEDS ORDERED: MVI, Adult with Vitamin K 10 ML, Thiamine 100 MG, Folic Acid 1 MG in Lactated Ringers 1... IV ONE ×4 (15:59)
[2020-11-01] MEDS ORDERED: Famotidine 20 MG/2 ML SDV IVPUSH ONE (15:59)
[2020-11-01 16:06] LABS: PTT,PARTIAL THROMBOPLSTIN TIME 20.7 SEC (22.0-34.0)
[2020-11-01 16:09] LABS: ANION GAP 22.1 mEq/L (7-13); CHLORIDE,CL 92 mmol/L (98-107); SODIUM,NA 132 mmol/L (136-145)
[2020-11-01] MEDS: Sodium Chloride 0.9% 10 ML Syringe FLUSH PRN ×2 (16:15→16:16)
--- NOTE | 2020-11-01 16:43 | EDM.PDOC ---
Scribed by Joleen Hernandez 11/01/20 [id number] for Roshan Gonzalez MD ED HPI GENERAL MEDICAL PROBLEM - General Chief Complaint: Chest Pain Stated Complaint: CHEST PAIN / STENT LAST WEEK Time Seen by Provider: 11/01/20 14:56 Source of Information: Reports: Patient, RN, RN Notes Reviewed History Limitations: Reports: Intoxication - History of Present Illness INITIAL COMMENTS - FREE TEXT/NARRATIVE: Patient presents to ED by POV with c/o chest pain x2 weeks. Pt states he started drinking alcohol heavily every day 2 weeks ago to take care of the pain. Patient states had a cardiac stent placed last week in [place]. He states the pain 7-10/10 all through his body. Patient states had nausea and vomiting on the way in. Patient states took nothing for the pain, but drank alcohol to kill the pain. Pt is very intoxicated and gives no further history. Onset: Gradual Duration: Getting Worse Location: Reports: Generalized Quality: Reports: Ache Severity: Moderate Improves with: Reports: None Worsens with: Reports: None Associated Symptoms: Reports: No Other Symptoms Chest Pain Score (Numeric/FACES): 7 - Related Data Allergies Allergy/AdvReac Type Severity Reaction Status Date / Time No Known Allergies Allergy Verified 11/01/20 15:06 Home Meds: Home Meds lisinopriL [Prinivil] 10 mg PO ASDIRECTED 01/24/19 [History] metFORMIN [Glucophage] 1,000 mg PO ASDIRECTED 01/24/19 [History] Acetaminophen [Tylenol] 650 mg PO Q6H PRN tablet 02/05/19 [Rx] LORazepam [Ativan] 0 mg PO TITRATE PRN tablet 02/05/19 [Rx] Potassium Chloride [Klor-Con 10] 20 meq PO DAILY tab.er 02/05/19 [Rx] Past Medical History HEENT History: Reports: None Cardiovascular History: Reports: Hypertension Respiratory History: Reports: None Gastrointestinal History: Reports: Gastritis, GI Bleed Genitourinary History: Reports: None Musculoskeletal History: Reports: None Neurological History: Reports: Headaches, Chronic Psychiatric History: Reports: Addiction Endocrine/Metabolic History: Reports: Diabetes, Type II Hematologic History: Reports: None Immunologic History: Reports: None Oncologic (Cancer) History: Reports: None Dermatologic History: Reports: None Social & Family History - Family History Family Medical History: No Pertinent Family History - Caffeine Use Caffeine Use: Reports: None - Living Situation & Occupation Living situation: Reports: with Family Occupation: Unemployed ED ROS GENERAL - Review of Systems Review Of Systems: Comprehensive ROS is negative, except as noted in HPI. ED EXAM, GENERAL - Physical Exam Exam: See Below Exam Limited By: Intoxication General Appearance: Alert, WD/WN, No Apparent Distress Eye Exam: Bilateral Eye: EOMI, Normal Inspection, PERRL Ears: Normal External Exam, Normal Canal, Hearing Grossly Normal, Normal TMs Nose: Normal Inspection, Normal Mucosa, No Blood Throat/Mouth: Normal Inspection, Normal Lips, Normal Teeth, Normal Gums, Normal Oropharynx, Normal Voice, No Airway Compromise Head: Atraumatic, Normocephalic Neck: Normal Inspection, Supple, Non-Tender, Full Range of Motion Respiratory/Chest: No Respiratory Distress, Lungs Clear, Normal Breath Sounds, No Accessory Muscle Use, Chest Non-Tender Cardiovascular: Normal Peripheral Pulses, Regular Rate, Rhythm, No Edema, No Gallop, No JVD, No Murmur, No Rub GI/Abdominal: Normal Bowel Sounds, Soft, Non-Tender, No Organomegaly, No Distention, No Abnormal Bruit, No Mass (Male) Exam: Deferred Rectal (Males) Exam: Deferred Back Exam: Normal Inspection, Full Range of Motion, NT Extremities: Normal Inspection, Normal Range of Motion, Non-Tender, Normal Capillary Refill, No Pedal Edema Neurological: Alert, Oriented, CN II-XII Intact, Normal Cognition, Normal Gait, Normal Reflexes, No Motor/Sensory Deficits Psychiatric: Normal Affect, Normal Mood Skin Exam: Warm, Dry, Intact, Normal Color, No Rash #1 Interpretation EKG Date: 11/01/20 Time: 15:00 Rhythm: Other (sinus rhythm) Rate (Beats/Min): 100 [place]: LAD-Left [place] Deviation (consider left anterior fascicular block) P-Wave: Present QRS: Other (abnormal R wave progression, late transition.) ST-T: Normal QT: Normal FL/PQ Interval: prolonged FL interval Comparison: No Change Course - Vital Signs Last Recorded V/S: Last Vital Signs Temp 98.1 F 11/01/20 15:03 Pulse 103 H 11/01/20 15:03 Resp 25 H 11/01/20 15:03 BP 153/88 H 11/01/20 15:03 Pulse Ox 98 11/01/20 15:03 - Orders/Labs/Meds Orders: Active Orders 24 hr Category Date Time Status EKG 12 Lead [EKG Documentation Completion] [RC] STAT Care 11/01/20 15:09 Active Peripheral IV Care [RC] . DIRECTED Care 11/01/20 15:12 Active UA W/MICROSCOPIC [URIN] Stat Lab 11/01/20 15:30 Results MVI, Adult with Vitamin K [Infuvite Adult] 10 ml Med 11/01/20 15:59 Active Thiamine [Vitamin B-1] 100 mg Folic Acid 1 mg Lactated Ringers [Ringers, Lactated] 1,000 ml IV .BOLUS Sodium Chloride 0.9% [Saline Flush] Med 11/01/20 15:10 Active 10 ml FLUSH ASDIRECTED PRN Peripheral IV Insertion Adult [OM.PC] Stat Oth 11/01/20 15:11 Ordered Medication Orders Multivitamins/Minerals 10 ml/Thiamine HCl 100 mg/ Folic Acid 1 mg/ Lactated Ringer's 1,011.2 mls @ 999 mls/hr IV .BOLUS ONE Stop: 11/01/20 16:59 Last Admin: 11/01/20 16:20 Dose: 999 mls/hr Documented by: REGULO Sodium Chloride (Sodium Chloride 0.9% 10 Ml Syringe) 10 ml FLUSH ASDIRECTED PRN PRN Reason: Keep Vein Open Last Admin: 11/01/20 16:16 Dose: 10 ml Documented by: [id number] Admin: 11/01/20 16:15 Dose: 10 ml Documented by: [id number] Labs: Laboratory Tests 11/01/20 11/01/20 11/01/20 Range/Units 15:22 15:22 15:22 WBC 4.2 L (5.0-10.0) 10^3/uL RBC 5.44 (4.6-6.2) 10^6/uL Hgb 16.8 D (14.0-18.0) g/dL Hct 47.2 (40.0-54.0) % MCV 86.8 D (80-100) fL MCH 30.9 (27.0-34.0) pg MCHC 35.6 H (33.0-35.0) g/dL Plt Count 197 (150-450) 10^3/uL Neut % (Auto) 59.5 (42.2-75.2) % Lymph % (Auto) 29.2 (20.5-50.1) % [place] % (Auto) 10.6 H (2-8) % Eos % (Auto) 0.0 L (1.0-3.0) % Baso % (Auto) 0.7 (0.0-1.0) % PT 10.3 (9.0-12.0) SEC INR 1.0 (0.9-1.2) APTT 20.7 L (22.0-34.0) SEC Sodium 132 L (136-145) mmol/L Potassium 4.1 (3.5-5.1) mmol/L Chloride 92 L (98-107) mmol/L Carbon Dioxide 22 (21-32) mmol/L Anion Gap 22.1 H (7-13) mEq/L BUN 7 (7-18) mg/dL Creatinine 0.65 L (0.70-1.30) mg/dL Est Cr Clr Drug Dosing 129.47 mL/min Estimated GFR (MDRD) > 60 BUN/Creatinine Ratio 10.8 (No establ ref range) Glucose 268 H (70-99) mg/dL Calcium 8.1 L (8.5-10.1) mg/dL Total Bilirubin 2.0 H (0.2-1.0) mg/dL AST 82 H (15-37) U/L ALT 105 H (16-63) U/L Alkaline Phosphatase 92 (46-116) U/L Troponin I < 0.017 (0.000-0.056) ng/mL B-Natriuretic Peptide 15 (0-100) pg/ml Total Protein 8.0 (6.4-8.2) g/dL Albumin 3.6 (3.4-5.0) g/dL Globulin 4.4 Albumin/Globulin Ratio 0.8 Amylase 65 (25-115) U/L Lipase 142 (73-393) U/L Urine Color (YELLOW) Urine Appearance (CLEAR) Urine pH (5.0-9.0) Ur Specific [place] (1.005-1.030) Urine Protein (NEGATIVE) Urine Glucose (UA) (NEGATIVE) Urine Ketones (NEGATIVE) Urine Occult Blood (NEGATIVE) Urine Nitrite (NEGATIVE) Urine Bilirubin (NEGATIVE) Urine Urobilinogen (0.2-1.0) mg/dL Ur Leukocyte Esterase (NEGATIVE) Urine Opiates Screen (NEGATIVE) Ur Oxycodone Screen (NEGATIVE) Urine Methadone Screen (NEGATIVE) Ur Barbiturates Screen (NEGATIVE) U Tricyclic Antidepress (NEGATIVE) Ur Phencyclidine Scrn (NEGATIVE) Ur Amphetamine Screen (NEGATIVE) U Methamphetamines Scrn (NEGATIVE) Urine MDMA Screen (NEGATIVE) U Benzodiazepines Scrn (NEGATIVE) Urine Cocaine Screen (NEGATIVE) U Marijuana (THC) Screen (NEGATIVE) Ethyl Alcohol 393 (0) mg/dL 11/01/20 11/01/20 Range/Units 15:30 15:30 WBC (5.0-10.0) 10^3/uL RBC (4.6-6.2) 10^6/uL Hgb (14.0-18.0) g/dL Hct (40.0-54.0) % MCV (80-100) fL MCH (27.0-34.0) pg MCHC (33.0-35.0) g/dL Plt Count (150-450) 10^3/uL Neut % (Auto) (42.2-75.2) % Lymph % (Auto) (20.5-50.1) % [place] % (Auto) (2-8) % Eos % (Auto) (1.0-3.0) % Baso % (Auto) (0.0-1.0) % PT (9.0-12.0) SEC INR (0.9-1.2) APTT (22.0-34.0) SEC Sodium (136-145) mmol/L Potassium (3.5-5.1) mmol/L Chloride (98-107) mmol/L Carbon Dioxide (21-32) mmol/L Anion Gap (7-13) mEq/L BUN (7-18) mg/dL Creatinine (0.70-1.30) mg/dL Est Cr Clr Drug Dosing mL/min Estimated GFR (MDRD) BUN/Creatinine Ratio (No establ ref range) Glucose (70-99) mg/dL Calcium (8.5-10.1) mg/dL Total Bilirubin (0.2-1.0) mg/dL AST (15-37) U/L ALT (16-63) U/L Alkaline Phosphatase (46-116) U/L Troponin I (0.000-0.056) ng/mL B-Natriuretic Peptide (0-100) pg/ml Total Protein (6.4-8.2) g/dL Albumin (3.4-5.0) g/dL Globulin Albumin/Globulin Ratio Amylase (25-115) U/L Lipase (73-393) U/L Urine Color Yellow (YELLOW) Urine Appearance Clear (CLEAR) Urine pH 5.5 (5.0-9.0) Ur Specific [place] 1.025 (1.005-1.030) Urine Protein >=300 H (NEGATIVE) Urine Glucose (UA) 500 H (NEGATIVE) Urine Ketones 80 H (NEGATIVE) Urine Occult Blood Moderate H (NEGATIVE) Urine Nitrite Negative (NEGATIVE) Urine Bilirubin Negative (NEGATIVE) Urine Urobilinogen 0.2 (0.2-1.0) mg/dL Ur Leukocyte Esterase Negative (NEGATIVE) Urine Opiates Screen Negative (NEGATIVE) Ur Oxycodone Screen Negative (NEGATIVE) Urine Methadone Screen Negative (NEGATIVE) Ur Barbiturates Screen Negative (NEGATIVE) U Tricyclic Antidepress Negative (NEGATIVE) Ur Phencyclidine Scrn Negative (NEGATIVE) Ur Amphetamine Screen Negative (NEGATIVE) U Methamphetamines Scrn Negative (NEGATIVE) Urine MDMA Screen Negative (NEGATIVE) U Benzodiazepines Scrn Negative (NEGATIVE) Urine Cocaine Screen Negative (NEGATIVE) U Marijuana (THC) Screen Negative (NEGATIVE) Ethyl Alcohol (0) mg/dL Meds: Medications Generic Name Dose Route Start Last Admin Trade Name Freq PRN Reason Stop Dose Admin Multivitamins/Minerals 10 ml/ 1,011.2 mls @ 999 mls/hr 11/01/20 15:59 11/01/20 16:20 Thiamine HCl 100 mg/ Folic IV 11/01/20 16:59 999 mls/hr Acid 1 mg/ Lactated Ringer's .BOLUS ONE Administration Sodium Chloride 10 ml 11/01/20 15:10 11/01/20 16:16 Sodium Chloride 0.9% 10 Ml Syringe FLUSH 10 ml ASDIRECTED PRN Administration Keep Vein Open Discontinued Medications Generic Name Dose Route Start Last Admin Trade Name Freq PRN Reason Stop Dose Admin Famotidine 20 mg 11/01/20 15:59 11/01/20 16:17 Famotidine 20 Mg/2 Ml Sdv IVPUSH 11/01/20 16:00 20 mg ONETIME ONE Administration Ondansetron HCl 4 mg 11/01/20 15:59 11/01/20 16:14 Ondansetron 4 Mg/2 Ml Sdv IV 11/01/20 16:00 4 mg ONETIME ONE Administration - Radiology Interpretation Free Text/Narrative:: [facility] [place] [facility] Final Radiology Report Call: [phone] assistance Online chat: [email or web address] Name: NANO CHIN Age: 55Years M Date: 11/01/2020 SSN: -- : [id number] Study: CR CHEST 1V FRONTAL Requesting Physician: ROSHAN GONZALEZ Images: 1 Addl Studies: Provided Clinical History: chest pain Contrast: Contrast Medium: Contrast Amount: Contrast Method: CONFIDENTIALITY STATEMENT This report is intended only for use by the referring physician, and only in accordance with law. If you received this in error, call [phone]. Page 1 of 1 PROCEDURE INFORMATION: Exam: XR Chest Exam date and time: 11/01/2020 3:48 PM Age: 55 years old Clinical indication: Other: Chest pain TECHNIQUE: Imaging protocol: XR of the chest. Views: 1 view. COMPARISON: CR Chest 1V Frontal 01/23/2020 12:37 AM FINDINGS: Airway: The airways are patent. Lungs: Low lung volumes causes crowding of the bronchovascular structures. No acute interstitial or airspace disease. Pleural spaces: There are no pleural effusions present. There is no evidence of pneumothorax. Heart/Mediastinum: Cardiomediastinal silhouette is magnified due to technique. Bones/joints: No acute skeletal abnormality or aggressive osseous lesion. IMPRESSION: Negative for acute thoracic pathology. Thank you for allowing us to participate in the care of your patient. Dictated and Authenticated by: Brett Pham MD 11/01/2020 3:53 PM Central Time ([place] & [place]) Departure - Departure Time of Disposition: 16:42 (admitted to Dr. Ramsey) Disposition: Admitted As Inpatient 64 Condition: Fair Clinical Impression: Chronic alcohol abuse Acute alcohol intoxication Qualifiers: Complication of substance-induced condition: with unspecified complication Qualified Code(s): F10.929 - Alcohol use, unspecified with intoxication, unspecified Forms: ED Department Discharge Sepsis Event Note (ED) - Focused Exam Vital Signs: Vital Signs Temp Pulse Resp BP Pulse Ox 11/01/20 15:03 98.1 F 103 H 25 H 153/88 H 98 - My Orders Last 24 Hours: My Active Orders 11/01/20 15:09 EKG 12 Lead [EKG Documentation Completion] [RC] STAT 11/01/20 15:10 Sodium Chloride 0.9% [Saline Flush] 10 ml FLUSH ASDIRECTED PRN 11/01/20 15:11 Peripheral IV Insertion Adult [OM.PC] Stat 11/01/20 15:12 Peripheral IV Care [RC] . DIRECTED 11/01/20 15:30 UA W/MICROSCOPIC [URIN] Stat 11/01/20 15:59 MVI, Adult with Vitamin K [Infuvite Adult] 10 ml Thiamine [Vitamin B-1] 100 mg Folic Acid 1 mg Lactated Ringers [Ringers, Lactated] 1,000 ml IV .BOLUS - Assessment/Plan Last 24 Hours: My Active Orders 11/01/20 15:09 EKG 12 Lead [EKG Documentation Completion] [RC] STAT 11/01/20 15:10 Sodium Chloride 0.9% [Saline Flush] 10 ml FLUSH ASDIRECTED PRN 11/01/20 15:11 Peripheral IV Insertion Adult [OM.PC] Stat 11/01/20 15:12 Peripheral IV Care [RC] . DIRECTED 11/01/20 15:30 UA W/MICROSCOPIC [URIN] Stat 11/01/20 15:59 MVI, Adult with Vitamin K [Infuvite Adult] 10 ml Thiamine [Vitamin B-1] 100 mg Folic Acid 1 mg Lactated Ringers [Ringers, Lactated] 1,000 ml IV .BOLUS I have read and agree with the documentation that has been completed regarding this visit. By signing this record, I attest that the documentation was completed in my physical presence and is an accurate record of the encounter.
[2020-11-01] MEDS ORDERED: Docusate Sodium 100 MG Cap PO PRN (17:03)
[2020-11-01] MEDS ORDERED: Metoprolol Tartrate 25 MG Tab PO PRN (17:09)
[2020-11-01] MEDS ORDERED: 50% Dextrose in Water 50 ML Syringe IV PRN (17:15)
[2020-11-01] MEDS ORDERED: Glucagon,Human Recombinant 1 MG Vial IM PRN (17:15)
--- NOTE | 2020-11-01 17:22 | PCM.HP ---
H&P History of Present Illness - General Date of Service: 11/01/20 Admit Problem/Dx: Admission Diagnosis/Problem Admission Diagnosis/Problem Intoxication Source of Information: Patient, Provider (ER provider) History Limitations: Reports: Intoxication - History of Present Illness Initial Comments - Free Text/Narative: Chief complaint: Alcohol intoxication with wishes to become sober. History present illness: Patient is a 55-year-old male with a past medical history as listed below who presents to the [facility] emergency department due to the above- stated chief complaint. Despite his level of significant intoxication the patient is able to endorse a recent history of 2 family members dying due to significant drug use relatively recently. He has been drinking to kill the pain. He is also been experiencing significant physical pain along with this. He states that he hurts all over. He has been drinking both liquor and beer for 2 weeks straight. He states that he can drink all he can get his hands on. He cannot quantify any more specifically. Patient endorses a long history of alcohol abuse, including multiple admissions to the hospital. He denies ever being in an intensive care setting. He denies prior seizure or having to be intubated. Patient states that he is seeing 2 people at the bedside that are not present that are talking to him and telling him to get out of the bed. He is trying to resist their efforts. In the emergency department, laboratory values were notable for mild acute alcoholic hepatitis. His alcohol level was nearly 400. Patient communicated to ER personnel that he wished to become sober, therefore the internal medicine service was contacted for admission for management of acute alcohol intoxication and likely impending withdrawal. The patient states that he currently has a headache. He has diffuse muscle aches. He denies any lightheadedness/dizziness, chest pain, chest pressure, pleurisy, abdominal discomfort, or difficulties with voiding. He states that he had some nausea with vomiting over the past couple of days. In addition, the patient states that he was in [place], [place] about 2 weeks ago when he had an acute NH. He was hospitalized and underwent cardiac catheterization. The patient is able to provide evidence of the radial insertion site on the right wrist. He states that he underwent stent placement. We are attempting to get those records. Chest Pain Score (Numeric/FACES): 7 - Related Data Allergies/Adverse Reactions: Allergies Allergy/AdvReac Type Severity Reaction Status Date / Time No Known Allergies Allergy Verified 11/01/20 17:23 Home Medications: Home Meds lisinopriL [Prinivil] 10 mg PO ASDIRECTED 01/24/19 [History] metFORMIN [Glucophage] 1,000 mg PO ASDIRECTED 01/24/19 [History] Acetaminophen [Tylenol] 650 mg PO Q6H PRN tablet 02/05/19 [Rx] LORazepam [Ativan] 0 mg PO TITRATE PRN tablet 02/05/19 [Rx] Potassium Chloride [Klor-Con 10] 20 meq PO DAILY tab.er 02/05/19 [Rx] Past Medical History HEENT History: Reports: None Cardiovascular History: Reports: Angina, Hypertension, NH, Stents Respiratory History: Reports: None Gastrointestinal History: Reports: Gastritis, GI Bleed, Other (See Below) (Esophageal varices) Other Gastrointestinal History: Pancreatitis. Genitourinary History: Reports: None Musculoskeletal History: Reports: None Neurological History: Reports: Headaches, Chronic Psychiatric History: Reports: Addiction, Depression Endocrine/Metabolic History: Reports: Diabetes, Type II (On oral hypoglycemics), Other (See Below) (Diabetic ketoacidosis) Hematologic History: Reports: None Immunologic History: Reports: None Oncologic (Cancer) History: Reports: None Dermatologic History: Reports: None - Infectious Disease History Infectious Disease History: Reports: Chicken Pox, Measles, Mumps - Past Surgical History Head Surgeries/Procedures: Reports: None Social & Family History - Family History Family Medical History: No Pertinent Family History Other Psychiatric Family History: 2 family members recently due to drug use. - Tobacco Use Tobacco Use Status *Q: Never Tobacco User Second Hand Smoke Exposure: No - Caffeine Use Caffeine Use: Reports: None - Alcohol Use Alcohol Use Comment: Patient has been drinking both beer and wine as much as he can for the past 2 weeks. Prior heavy history of alcohol. - Recreational Drug Use Recreational Drug Use: No - Living Situation & Occupation Living situation: Reports: with Family Occupation: Unemployed H&P Review of Systems - Review of Systems: Review Of Systems: Comprehensive ROS is negative, except as noted in HPI. Exam - Exam Exam: See Below - Vital Signs Vital Signs: Last Vital Signs Temp 98.1 F 11/01/20 15:03 Pulse 103 H 11/01/20 15:03 Resp 25 H 11/01/20 15:03 BP 153/88 H 11/01/20 15:03 Pulse Ox 98 11/01/20 15:03 Weight: 206 lb 14.4 oz - Exam General: Alert, Cooperative HEENT: EOMI. No: Conjunctiva Clear (Injected) Neck: Supple, Trachea Midline Lungs: Clear to Auscultation, Normal Respiratory Effort Cardiovascular: Regular Rate, Regular Rhythm, Normal S1, Normal S2 GI/Abdominal Exam: Normal Bowel Sounds, Soft, Non-Tender Extremities: Normal Inspection, No Pedal Edema Skin: Warm, Dry, Intact, Other (Multiple tattoos throughout. Significant scarring on the chest from [facility] tradition.) Neurological: Cranial Nerves Intact, Reflexes Equal Bilateral Neuro Extensive - Mental Status: Alert, Oriented x3 Neuro Extensive - Motor, Sensory, Reflexes: CN II-XII Intact Psychiatric: Depressed - Patient Data Lab Results Last 24 hrs: Laboratory Results - last 24 hr 11/01/20 11/01/20 11/01/20 Range/Units 15:22 15:22 15:22 WBC 4.2 L (5.0-10.0) 10^3/uL RBC 5.44 (4.6-6.2) 10^6/uL Hgb 16.8 D (14.0-18.0) g/dL Hct 47.2 (40.0-54.0) % MCV 86.8 D (80-100) fL MCH 30.9 (27.0-34.0) pg MCHC 35.6 H (33.0-35.0) g/dL Plt Count 197 (150-450) 10^3/uL Neut % (Auto) 59.5 (42.2-75.2) % Lymph % (Auto) 29.2 (20.5-50.1) % Laporte % (Auto) 10.6 H (2-8) % Eos % (Auto) 0.0 L (1.0-3.0) % Baso % (Auto) 0.7 (0.0-1.0) % PT 10.3 (9.0-12.0) SEC INR 1.0 (0.9-1.2) APTT 20.7 L (22.0-34.0) SEC Sodium 132 L (136-145) mmol/L Potassium 4.1 (3.5-5.1) mmol/L Chloride 92 L (98-107) mmol/L Carbon Dioxide 22 (21-32) mmol/L Anion Gap 22.1 H (7-13) mEq/L BUN 7 (7-18) mg/dL Creatinine 0.65 L (0.70-1.30) mg/dL Est Cr Clr Drug Dosing 129.47 mL/min Estimated GFR (MDRD) > 60 BUN/Creatinine Ratio 10.8 (No establ ref range) Glucose 268 H (70-99) mg/dL Calcium 8.1 L (8.5-10.1) mg/dL Total Bilirubin 2.0 H (0.2-1.0) mg/dL AST 82 H (15-37) U/L ALT 105 H (16-63) U/L Alkaline Phosphatase 92 (46-116) U/L Troponin I < 0.017 (0.000-0.056) ng/mL B-Natriuretic Peptide 15 (0-100) pg/ml Total Protein 8.0 (6.4-8.2) g/dL Albumin 3.6 (3.4-5.0) g/dL Globulin 4.4 Albumin/Globulin Ratio 0.8 Amylase 65 (25-115) U/L Lipase 142 (73-393) U/L Urine Color (YELLOW) Urine Appearance (CLEAR) Urine pH (5.0-9.0) Ur Specific Cutler (1.005-1.030) Urine Protein (NEGATIVE) Urine Glucose (UA) (NEGATIVE) Urine Ketones (NEGATIVE) Urine Occult Blood (NEGATIVE) Urine Nitrite (NEGATIVE) Urine Bilirubin (NEGATIVE) Urine Urobilinogen (0.2-1.0) mg/dL Ur Leukocyte Esterase (NEGATIVE) Urine RBC /HPF Urine WBC (0-5/HPF) /HPF Ur Epithelial Cells (NOT SEEN) /HPF Urine Bacteria (0-FEW/HPF) /HPF Granular Casts (Auto) Urine Opiates Screen (NEGATIVE) Ur Oxycodone Screen (NEGATIVE) Urine Methadone Screen (NEGATIVE) Ur Barbiturates Screen (NEGATIVE) U Tricyclic Antidepress (NEGATIVE) Ur Phencyclidine Scrn (NEGATIVE) Ur Amphetamine Screen (NEGATIVE) U Methamphetamines Scrn (NEGATIVE) Urine MDMA Screen (NEGATIVE) U Benzodiazepines Scrn (NEGATIVE) Urine Cocaine Screen (NEGATIVE) U Marijuana (THC) Screen (NEGATIVE) Ethyl Alcohol 393 (0) mg/dL 11/01/20 11/01/20 Range/Units 15:30 15:30 WBC (5.0-10.0) 10^3/uL RBC (4.6-6.2) 10^6/uL Hgb (14.0-18.0) g/dL Hct (40.0-54.0) % MCV (80-100) fL MCH (27.0-34.0) pg MCHC (33.0-35.0) g/dL Plt Count (150-450) 10^3/uL Neut % (Auto) (42.2-75.2) % Lymph % (Auto) (20.5-50.1) % Laporte % (Auto) (2-8) % Eos % (Auto) (1.0-3.0) % Baso % (Auto) (0.0-1.0) % PT (9.0-12.0) SEC INR (0.9-1.2) APTT (22.0-34.0) SEC Sodium (136-145) mmol/L Potassium (3.5-5.1) mmol/L Chloride (98-107) mmol/L Carbon Dioxide (21-32) mmol/L Anion Gap (7-13) mEq/L BUN (7-18) mg/dL Creatinine (0.70-1.30) mg/dL Est Cr Clr Drug Dosing mL/min Estimated GFR (MDRD) BUN/Creatinine Ratio (No establ ref range) Glucose (70-99) mg/dL Calcium (8.5-10.1) mg/dL Total Bilirubin (0.2-1.0) mg/dL AST (15-37) U/L ALT (16-63) U/L Alkaline Phosphatase (46-116) U/L Troponin I (0.000-0.056) ng/mL B-Natriuretic Peptide (0-100) pg/ml Total Protein (6.4-8.2) g/dL Albumin (3.4-5.0) g/dL Globulin Albumin/Globulin Ratio Amylase (25-115) U/L Lipase (73-393) U/L Urine Color Yellow (YELLOW) Urine Appearance Clear (CLEAR) Urine pH 5.5 (5.0-9.0) Ur Specific Cutler 1.025 (1.005-1.030) Urine Protein >=300 H (NEGATIVE) Urine Glucose (UA) 500 H (NEGATIVE) Urine Ketones 80 H (NEGATIVE) Urine Occult Blood Moderate H (NEGATIVE) Urine Nitrite Negative (NEGATIVE) Urine Bilirubin Negative (NEGATIVE) Urine Urobilinogen 0.2 (0.2-1.0) mg/dL Ur Leukocyte Esterase Negative (NEGATIVE) Urine RBC 0-5 /HPF Urine WBC 0-5 (0-5/HPF) /HPF Ur Epithelial Cells Few (NOT SEEN) /HPF Urine Bacteria Rare (0-FEW/HPF) /HPF Granular Casts (Auto) Few Urine Opiates Screen Negative (NEGATIVE) Ur Oxycodone Screen Negative (NEGATIVE) Urine Methadone Screen Negative (NEGATIVE) Ur Barbiturates Screen Negative (NEGATIVE) U Tricyclic Antidepress Negative (NEGATIVE) Ur Phencyclidine Scrn Negative (NEGATIVE) Ur Amphetamine Screen Negative (NEGATIVE) U Methamphetamines Scrn Negative (NEGATIVE) Urine MDMA Screen Negative (NEGATIVE) U Benzodiazepines Scrn Negative (NEGATIVE) Urine Cocaine Screen Negative (NEGATIVE) U Marijuana (THC) Screen Negative (NEGATIVE) Ethyl Alcohol (0) mg/dL Result Diagrams: 11/01/20 15:22 11/01/20 15:22 Imaging Impressions Last 24 hrs: Chest x-ray personally reviewed. Formal reading noted. Agree with no acute cardiopulmonary disease. Problem List Initiated/Reviewed/Updated: Yes Orders Last 24hrs: Active Orders 24 hr Category Date Time Status Admission Diagnosis [ADT] Routine ADT 11/01/20 16:46 Ordered Patient Status [ADT] Routine ADT 11/01/20 16:46 Active Aspiration Precautions [RC] ASDIRECTED Care 11/01/20 17:09 Ordered CIWAA Assessment [RC] Q1H Care 11/01/20 17:09 Ordered Cardiac Monitoring [RC] CONTINUOUS Care 11/01/20 17:03 Ordered EKG 12 Lead [EKG Documentation Completion] [RC] STAT Care 11/01/20 15:09 Active Notify Provider [RC] PRN Care 11/01/20 17:09 Ordered Oxygen Therapy [RC] PRN Care 11/01/20 17:03 Ordered Peripheral IV Care [RC] . DIRECTED Care 11/01/20 15:12 Active Pulse Oximetry [RC] PRN Care 11/01/20 17:03 Ordered Up With Assistance [RC] ASDIRECTED Care 11/01/20 17:03 Ordered VTE/DVT Education [RC] PER UNIT ROUTINE Care 11/01/20 17:03 Ordered Vital Signs [RC] Q4H Care 11/01/20 17:03 Ordered Consult to Case Management/Operations Officer Trust Department [CONS] Cons 11/01/20 17:06 Ordered Routine Heart Healthy Diet [DIET] Diet 11/01/20 Dinner Ordered CBC WITH AUTO DIFF [HEME] DAILY Lab 11/02/20 17:15 Ordered CBC WITH AUTO DIFF [HEME] DAILY Lab 11/03/20 17:15 Ordered CBC WITH AUTO DIFF [HEME] DAILY Lab 11/04/20 17:15 Ordered COMPREHENSIVE METABOLIC PN,CMP [CHEM] DAILY Lab 11/02/20 17:15 Ordered COMPREHENSIVE METABOLIC PN,CMP [CHEM] DAILY Lab 11/03/20 17:15 Ordered COMPREHENSIVE METABOLIC PN,CMP [CHEM] DAILY Lab 11/04/20 17:15 Ordered MAGNESIUM [CHEM] DAILY Lab 11/02/20 17:15 Ordered MAGNESIUM [CHEM] DAILY Lab 11/03/20 17:15 Ordered MAGNESIUM [CHEM] DAILY Lab 11/04/20 17:15 Ordered Aspirin Med 11/02/20 08:00 Ordered 81 mg PO WITHBREAKFAST Clopidogrel [Plavix] Med 11/02/20 09:00 Ordered 75 mg PO DAILY Dextrose 50% in Water Med 11/01/20 17:15 Ordered 50 ml IV Q15M PRN Docusate Sodium [Colace] Med 11/01/20 17:03 Ordered 100 mg PO BID PRN Enoxaparin [Lovenox] Med 11/01/20 17:15 Ordered 40 mg SUBCUT DAILY Folic Acid Med 11/02/20 09:00 Ordered 1 mg PO DAILY Glucagon,Human Recombinant [GlucaGen] Med 11/01/20 17:15 Ordered 1 mg IM Q15M PRN Insulin Lispro [HumaLOG] Med 11/01/20 18:00 Ordered See Protocol SUBCUT WITHMEALSANDBED LORazepam [Ativan] Med 11/01/20 18:00 Ordered 2 mg IVPUSH Q2HR LORazepam [Ativan] Med 11/01/20 17:09 Ordered See Protocol IV TITRATE PRN Lactated Ringers [Ringers, Lactated] 1,000 ml Med 11/01/20 17:15 Ordered IV ASDIRECTED Metoprolol Tartrate [Lopressor] Med 11/01/20 17:09 Ordered 25 mg PO Q6H PRN Multivitamins,Therapeutic [Thera] Med 11/02/20 09:00 Ordered 1 each PO DAILY Ondansetron [Zofran] Med 11/01/20 17:03 Ordered 4 mg IVPUSH Q4H PRN Pantoprazole [ProTONIX IV] Med 11/01/20 21:00 Ordered 40 mg IVPUSH Q12HR Sodium Chloride 0.9% [Saline Flush] Med 11/01/20 15:10 Active 10 ml FLUSH ASDIRECTED PRN Thiamine [Vitamin B-1] Med 11/02/20 09:00 Ordered 100 mg PO DAILY lisinopriL [Prinivil] Med 11/01/20 17:15 Ordered 10 mg PO ASDIRECTED Peripheral IV Insertion Adult [OM.PC] Stat Ot 11/01/20 15:11 Ordered Seizure Precautions [OM.PC] Stat Oth 11/01/20 17:09 Ordered Resuscitation Status Routine Resus Stat 11/01/20 17:03 Ordered Medication Orders Aspirin (Aspirin 81 Mg Tab.Chew) 81 mg PO WITHBREAKFAST [facility] Clopidogrel Bisulfate (Clopidogrel 75 Mg Tab) 75 mg PO DAILY [facility] Dextrose/Water (50% Dextrose In Water 50 Ml Syringe) 50 ml IV Q15M PRN PRN Reason: Hypoglycemia Docusate Sodium (Docusate Sodium 100 Mg Cap) 100 mg PO BID PRN PRN Reason: Constipation Enoxaparin Sodium (Enoxaparin 40 Mg/0.4 Ml Syringe) 40 mg SUBCUT DAILY [facility] Folic Acid (Folic Acid 1 Mg Tab) 1 mg PO DAILY [facility] Stop: 11/04/20 09:01 Glucagon (Glucagon,Human Recombinant 1 Mg Vial) 1 mg IM Q15M PRN PRN Reason: Hypoglycemia Lactated Ringer's (Ringers, Lactated) 1,000 mls @ 200 mls/hr IV ASDIRECTED [facility] Insulin Human Lispro (Insulin Lispro 100 Units/Ml 3 Ml Vial) 0 unit SUBCUT WITHMEALSANDBED [facility]; Protocol Lorazepam (Lorazepam 2 Mg/Ml Sdv) 0 mg IV TITRATE PRN; Protocol PRN Reason: alcohol withdrawal Lorazepam (Lorazepam 2 Mg/Ml Sdv) 2 mg IVPUSH Q2HR [facility] Metoprolol Tartrate (Metoprolol Tartrate 25 Mg Tab) 25 mg PO Q6H PRN PRN Reason: See Label Comment Multivitamins (Multivitamins,Therapeutic Tab) 1 each PO DAILY [facility] Non-Formulary Medication (Lisinopril [Prinivil]) 10 mg PO ASDIRECTED [facility] Ondansetron HCl (Ondansetron 4 Mg/2 Ml Sdv) 4 mg IVPUSH Q4H PRN PRN Reason: Nausea/Vomiting Pantoprazole Sodium (Pantoprazole 40 Mg Vial) 40 mg IVPUSH Q12HR [facility] Sodium Chloride (Sodium Chloride 0.9% 10 Ml Syringe) 10 ml FLUSH ASDIRECTED PRN PRN Reason: Keep Vein Open Last Admin: 11/01/20 16:16 Dose: 10 ml Documented by: Admin: 11/01/20 16:15 Dose: 10 ml Documented by: REGULO Thiamine HCl (Thiamine 100 Mg Tab) 100 mg PO DAILY [facility] Assessment/Plan Comment:: 55-year-old gentleman with past medical history as listed above who presents to the [facility] emergency department with significant alcohol intoxication and requesting to undergo withdrawal treatment. 1. Acute alcohol intoxication, with likely impending withdrawal. Admit to the inpatient hospitalist service. Patient has already received a banana bag and 1 dose of Ativan thus far in the emergency department. We will proceed with aggressive CIWA protocol, along with 2 mg of IV Ativan scheduled as well. Thiamine and folate replacement. Continuous cardiac monitoring. As needed beta-dalia with hold parameters as necessary for rebound hypertension. Case management social work consult. Seizure precautions. Continue intravascular volume repletion with LR after banana bag has been completed. 2. Subjectively stated recent myocardial infarction. We will try to obtain records from that facility. As he was able to produce a radial artery insertion site scar, I have placed the patient on daily aspirin as well as Plavix. Attempting to reconcile medications I try to get a hold of his son who has the bottles on hand. EKG without concerns. 3. Type 2 diabetes mellitus. Oral hypoglycemics will be placed on hold. Invoke hospital hyperglycemia protocol. 4. History of GI bleeding and esophageal varices. Protonix twice daily. Zofran for nausea. Monitor for bleeding. 5. Liver transaminitis. Mild increase in numbers. Consistent with chronic use. Avoid hepatotoxins. CODE STATUS: Full code. DVT prophylaxis with Lovenox.
[2020-11-01] MEDS: LORazepam 2 MG/ML SDV IV PRN (17:42)
[2020-11-01] MEDS ORDERED: LORazepam 2 MG/ML SDV IVPUSH SCH ×2 (18:00→22:00)
[2020-11-01] MEDS: Insulin Lispro 100 Units/ML 3 ML Vial SUBCUT SCH ×2 (18:37→22:02)
[2020-11-01] MEDS: Lactated Ringers 1,000 ML IV SCH (18:41)
[2020-11-01] MEDS: Sertraline 50 MG Tab PO SCH (21:36)
[2020-11-01] MEDS: Carvedilol 3.125 MG Tab PO SCH (21:36)
[2020-11-01] MEDS: Enoxaparin 40 MG/0.4 ML Syringe SUBCUT SCH (22:03)
[2020-11-01] MEDS: Pantoprazole 40 MG Vial IVPUSH SCH (22:03)
[2020-11-02] MEDS: Lactated Ringers 1,000 ML IV SCH ×5 (00:04→22:18)
[2020-11-02] MEDS: LORazepam 2 MG/ML SDV IV PRN ×7 (00:29→22:40)
[2020-11-02 06:20] LABS: ANION GAP 16.5 mEq/L (7-13); CHLORIDE,CL 99 mmol/L (98-107); SODIUM,NA 138 mmol/L (136-145)
[2020-11-02] MEDS: Ondansetron 4 MG/2 ML SDV IVPUSH PRN ×2 (06:46→15:58)
[2020-11-02] MEDS ORDERED: Magnesium Sulfate/Water 2 GM/50 ML BAG IV ONE (06:55)
[2020-11-02] MEDS: Pantoprazole 40 MG Vial IVPUSH SCH ×2 (07:59→21:28)
--- NOTE | 2020-11-02 08:04 | PCM.PN ---
- General Info Date of Service: 11/02/20 Subjective Update: Hospital day 2. Patient seen and examined at bedside. Patient with significant sleep apnea overnight requiring BiPAP with an IPAP of 12 and EPAP of 5. Able to oxygenate and ventilate well. Treated with minimal as needed Ativan overnight after initial significant bolus of 5 mg upon intake for agitation and hallucinations. No further concerning overnight events. Patient states that he feels jittery this morning. He continues to see members of [place] who are telling him to do harmful things to himself. He does not elaborate any further. States he had some nausea and a little bit of vomiting this morning. Now controlled with IV Zofran. Very thankful for the treatment and will continue stay in the hospital in order to get well. - Review of Systems General: Reports: No Symptoms HEENT: Reports: No Symptoms Pulmonary: Reports: No Symptoms Cardiovascular: Reports: Palpitations Gastrointestinal: Reports: Nausea, Vomiting Genitourinary: Reports: No Symptoms Musculoskeletal: Reports: No Symptoms Skin: Reports: No Symptoms Neurological: Reports: Confusion, Tremors Psychiatric: Reports: Hallucinations (Visual and auditory) - Patient Data Vitals - Most Recent: Last Vital Signs Temp 97.3 F 11/02/20 04:00 Pulse 99 11/02/20 04:00 Resp 19 11/02/20 04:00 BP 115/70 11/02/20 04:00 Pulse Ox 96 11/02/20 04:00 Weight - Most Recent: 207 lb 12.8 oz I&O - Last 24 Hours: Intake & Output 11/01/20 11/02/20 11/02/20 22:59 06:59 14:59 Output Total 550 Balance -550 Lab Results Last 24 Hours: Laboratory Results - last 24 hr 11/01/20 11/01/20 11/01/20 Range/Units 15:22 15:22 15:22 WBC 4.2 L (5.0-10.0) 10^3/uL RBC 5.44 (4.6-6.2) 10^6/uL Hgb 16.8 D (14.0-18.0) g/dL Hct 47.2 (40.0-54.0) % MCV 86.8 D (80-100) fL MCH 30.9 (27.0-34.0) pg MCHC 35.6 H (33.0-35.0) g/dL Plt Count 197 (150-450) 10^3/uL Neut % (Auto) 59.5 (42.2-75.2) % Lymph % (Auto) 29.2 (20.5-50.1) % [place] % (Auto) 10.6 H (2-8) % Eos % (Auto) 0.0 L (1.0-3.0) % Baso % (Auto) 0.7 (0.0-1.0) % PT 10.3 (9.0-12.0) SEC INR 1.0 (0.9-1.2) APTT 20.7 L (22.0-34.0) SEC Sodium 132 L (136-145) mmol/L Potassium 4.1 (3.5-5.1) mmol/L Chloride 92 L (98-107) mmol/L Carbon Dioxide 22 (21-32) mmol/L Anion Gap 22.1 H (7-13) mEq/L BUN 7 (7-18) mg/dL Creatinine 0.65 L (0.70-1.30) mg/dL Est Cr Clr Drug Dosing 129.47 mL/min Estimated GFR (MDRD) > 60 BUN/Creatinine Ratio 10.8 (No establ ref range) Glucose 268 H (70-99) mg/dL POC Glucose (70-99) mg/dL Calcium 8.1 L (8.5-10.1) mg/dL Magnesium (1.8-2.4) mg/dL Total Bilirubin 2.0 H (0.2-1.0) mg/dL AST 82 H (15-37) U/L ALT 105 H (16-63) U/L Alkaline Phosphatase 92 (46-116) U/L Troponin I < 0.017 (0.000-0.056) ng/mL B-Natriuretic Peptide 15 (0-100) pg/ml Total Protein 8.0 (6.4-8.2) g/dL Albumin 3.6 (3.4-5.0) g/dL Globulin 4.4 Albumin/Globulin Ratio 0.8 Amylase 65 (25-115) U/L Lipase 142 (73-393) U/L Urine Color (YELLOW) Urine Appearance (CLEAR) Urine pH (5.0-9.0) Ur Specific [place] (1.005-1.030) Urine Protein (NEGATIVE) Urine Glucose (UA) (NEGATIVE) Urine Ketones (NEGATIVE) Urine Occult Blood (NEGATIVE) Urine Nitrite (NEGATIVE) Urine Bilirubin (NEGATIVE) Urine Urobilinogen (0.2-1.0) mg/dL Ur Leukocyte Esterase (NEGATIVE) Urine RBC /HPF Urine WBC (0-5/HPF) /HPF Ur Epithelial Cells (NOT SEEN) /HPF Urine Bacteria (0-FEW/HPF) /HPF Granular Casts (Auto) Urine Opiates Screen (NEGATIVE) Ur Oxycodone Screen (NEGATIVE) Urine Methadone Screen (NEGATIVE) Ur Barbiturates Screen (NEGATIVE) U Tricyclic Antidepress (NEGATIVE) Ur Phencyclidine Scrn (NEGATIVE) Ur Amphetamine Screen (NEGATIVE) U Methamphetamines Scrn (NEGATIVE) Urine MDMA Screen (NEGATIVE) U Benzodiazepines Scrn (NEGATIVE) Urine Cocaine Screen (NEGATIVE) U Marijuana (THC) Screen (NEGATIVE) Ethyl Alcohol 393 (0) mg/dL 11/01/20 11/01/20 11/01/20 Range/Units 15:30 15:30 21:50 WBC (5.0-10.0) 10^3/uL RBC (4.6-6.2) 10^6/uL Hgb (14.0-18.0) g/dL Hct (40.0-54.0) % MCV (80-100) fL MCH (27.0-34.0) pg MCHC (33.0-35.0) g/dL Plt Count (150-450) 10^3/uL Neut % (Auto) (42.2-75.2) % Lymph % (Auto) (20.5-50.1) % [place] % (Auto) (2-8) % Eos % (Auto) (1.0-3.0) % Baso % (Auto) (0.0-1.0) % PT (9.0-12.0) SEC INR (0.9-1.2) APTT (22.0-34.0) SEC Sodium (136-145) mmol/L Potassium (3.5-5.1) mmol/L Chloride (98-107) mmol/L Carbon Dioxide (21-32) mmol/L Anion Gap (7-13) mEq/L BUN (7-18) mg/dL Creatinine (0.70-1.30) mg/dL Est Cr Clr Drug Dosing mL/min Estimated GFR (MDRD) BUN/Creatinine Ratio (No establ ref range) Glucose (70-99) mg/dL POC Glucose 232 H (70-99) mg/dL Calcium (8.5-10.1) mg/dL Magnesium (1.8-2.4) mg/dL Total Bilirubin (0.2-1.0) mg/dL AST (15-37) U/L ALT (16-63) U/L Alkaline Phosphatase (46-116) U/L Troponin I (0.000-0.056) ng/mL B-Natriuretic Peptide (0-100) pg/ml Total Protein (6.4-8.2) g/dL Albumin (3.4-5.0) g/dL Globulin Albumin/Globulin Ratio Amylase (25-115) U/L Lipase (73-393) U/L Urine Color Yellow (YELLOW) Urine Appearance Clear (CLEAR) Urine pH 5.5 (5.0-9.0) Ur Specific [place] 1.025 (1.005-1.030) Urine Protein >=300 H (NEGATIVE) Urine Glucose (UA) 500 H (NEGATIVE) Urine Ketones 80 H (NEGATIVE) Urine Occult Blood Moderate H (NEGATIVE) Urine Nitrite Negative (NEGATIVE) Urine Bilirubin Negative (NEGATIVE) Urine Urobilinogen 0.2 (0.2-1.0) mg/dL Ur Leukocyte Esterase Negative (NEGATIVE) Urine RBC 0-5 /HPF Urine WBC 0-5 (0-5/HPF) /HPF Ur Epithelial Cells Few (NOT SEEN) /HPF Urine Bacteria Rare (0-FEW/HPF) /HPF Granular Casts (Auto) Few Urine Opiates Screen Negative (NEGATIVE) Ur Oxycodone Screen Negative (NEGATIVE) Urine Methadone Screen Negative (NEGATIVE) Ur Barbiturates Screen Negative (NEGATIVE) U Tricyclic Antidepress Negative (NEGATIVE) Ur Phencyclidine Scrn Negative (NEGATIVE) Ur Amphetamine Screen Negative (NEGATIVE) U Methamphetamines Scrn Negative (NEGATIVE) Urine MDMA Screen Negative (NEGATIVE) U Benzodiazepines Scrn Negative (NEGATIVE) Urine Cocaine Screen Negative (NEGATIVE) U Marijuana (THC) Screen Negative (NEGATIVE) Ethyl Alcohol (0) mg/dL 11/02/20 11/02/20 11/02/20 Range/Units 05:25 05:25 07:29 WBC 5.2 (5.0-10.0) 10^3/uL RBC 4.33 L (4.6-6.2) 10^6/uL Hgb 13.3 L D (14.0-18.0) g/dL Hct 38.9 L (40.0-54.0) % MCV 89.8 D (80-100) fL MCH 30.7 (27.0-34.0) pg MCHC 34.2 (33.0-35.0) g/dL Plt Count 130 L (150-450) 10^3/uL Neut % (Auto) 74.7 (42.2-75.2) % Lymph % (Auto) 15.4 L (20.5-50.1) % [place] % (Auto) 8.9 H (2-8) % Eos % (Auto) 0.6 L (1.0-3.0) % Baso % (Auto) 0.4 (0.0-1.0) % PT (9.0-12.0) SEC INR (0.9-1.2) APTT (22.0-34.0) SEC Sodium 138 (136-145) mmol/L Potassium 3.5 (3.5-5.1) mmol/L Chloride 99 (98-107) mmol/L Carbon Dioxide 26 (21-32) mmol/L Anion Gap 16.5 H (7-13) mEq/L BUN 10 (7-18) mg/dL Creatinine 0.68 L (0.70-1.30) mg/dL Est Cr Clr Drug Dosing 123.75 mL/min Estimated GFR (MDRD) > 60 BUN/Creatinine Ratio 14.7 (No establ ref range) Glucose 159 H (70-99) mg/dL POC Glucose 174 H (70-99) mg/dL Calcium 7.1 L (8.5-10.1) mg/dL Magnesium 1.6 L (1.8-2.4) mg/dL Total Bilirubin 2.1 H (0.2-1.0) mg/dL AST 56 H (15-37) U/L ALT 78 H (16-63) U/L Alkaline Phosphatase 67 (46-116) U/L Troponin I (0.000-0.056) ng/mL B-Natriuretic Peptide (0-100) pg/ml Total Protein 5.7 L (6.4-8.2) g/dL Albumin 2.8 L (3.4-5.0) g/dL Globulin 2.9 Albumin/Globulin Ratio 0.97 Amylase (25-115) U/L Lipase (73-393) U/L Urine Color (YELLOW) Urine Appearance (CLEAR) Urine pH (5.0-9.0) Ur Specific [place] (1.005-1.030) Urine Protein (NEGATIVE) Urine Glucose (UA) (NEGATIVE) Urine Ketones (NEGATIVE) Urine Occult Blood (NEGATIVE) Urine Nitrite (NEGATIVE) Urine Bilirubin (NEGATIVE) Urine Urobilinogen (0.2-1.0) mg/dL Ur Leukocyte Esterase (NEGATIVE) Urine RBC /HPF Urine WBC (0-5/HPF) /HPF Ur Epithelial Cells (NOT SEEN) /HPF Urine Bacteria (0-FEW/HPF) /HPF Granular Casts (Auto) Urine Opiates Screen (NEGATIVE) Ur Oxycodone Screen (NEGATIVE) Urine Methadone Screen (NEGATIVE) Ur Barbiturates Screen (NEGATIVE) U Tricyclic Antidepress (NEGATIVE) Ur Phencyclidine Scrn (NEGATIVE) Ur Amphetamine Screen (NEGATIVE) U Methamphetamines Scrn (NEGATIVE) Urine MDMA Screen (NEGATIVE) U Benzodiazepines Scrn (NEGATIVE) Urine Cocaine Screen (NEGATIVE) U Marijuana (THC) Screen (NEGATIVE) Ethyl Alcohol (0) mg/dL Med Orders - Current: Current Medications Aspirin (Aspirin 81 Mg Tab.Chew) 81 mg PO WITHBREAKFAST [facility] Carvedilol (Carvedilol 3.125 Mg Tab) 3.125 mg PO BID [facility] Last Admin: 11/01/20 21:36 Dose: Not Given Documented by: Clopidogrel Bisulfate (Clopidogrel 75 Mg Tab) 75 mg PO DAILY [facility] Dextrose/Water (50% Dextrose In Water 50 Ml Syringe) 50 ml IV Q15M PRN PRN Reason: Hypoglycemia Docusate Sodium (Docusate Sodium 100 Mg Cap) 100 mg PO BID PRN PRN Reason: Constipation Enoxaparin Sodium (Enoxaparin 40 Mg/0.4 Ml Syringe) 40 mg SUBCUT DAILY [facility] Last Admin: 11/01/20 22:03 Dose: 40 mg Documented by: Folic Acid (Folic Acid 1 Mg Tab) 1 mg PO DAILY [facility] Stop: 11/04/20 09:01 Glucagon (Glucagon,Human Recombinant 1 Mg Vial) 1 mg IM Q15M PRN PRN Reason: Hypoglycemia Lactated Ringer's (Ringers, Lactated) 1,000 mls @ 200 mls/hr IV ASDIRECTED [facility] Last Admin: 11/02/20 05:02 Dose: 200 mls/hr Documented by: Magnesium Sulfate (Magnesium Sulfate In Water 2 Gm/50 Ml) 2 gm in 50 mls @ 25 mls/hr IV ONETIME ONE Stop: 11/02/20 08:54 Last Admin: 11/02/20 07:50 Dose: 25 mls/hr Documented by: Insulin Human Lispro (Insulin Lispro 100 Units/Ml 3 Ml Vial) 0 unit SUBCUT WITHMEALSANDBED [facility]; Protocol Last Admin: 11/01/20 22:02 Dose: 4 units Documented by: Lorazepam (Lorazepam 2 Mg/Ml Sdv) 0 mg IV TITRATE PRN; Protocol PRN Reason: alcohol withdrawal Last Admin: 11/02/20 07:07 Dose: 3 mg Documented by: Metoprolol Tartrate (Metoprolol Tartrate 25 Mg Tab) 25 mg PO Q6H PRN PRN Reason: See Label Comment Multivitamins (Multivitamins,Therapeutic Tab) 1 each PO DAILY [facility] Non-Formulary Medication (Lisinopril [Prinivil]) 10 mg PO ASDIRECTED [facility] Ondansetron HCl (Ondansetron 4 Mg/2 Ml Sdv) 4 mg IVPUSH Q4H PRN PRN Reason: Nausea/Vomiting Last Admin: 11/02/20 06:46 Dose: 4 mg Documented by: Pantoprazole Sodium (Pantoprazole 40 Mg Vial) 40 mg IVPUSH Q12HR [facility] Last Admin: 11/02/20 07:59 Dose: 40 mg Documented by: Sertraline HCl (Sertraline 50 Mg Tab) 25 mg PO BEDTIME [facility] Last Admin: 11/01/20 21:36 Dose: Not Given Documented by: Sodium Chloride (Sodium Chloride 0.9% 10 Ml Syringe) 10 ml FLUSH ASDIRECTED PRN PRN Reason: Keep Vein Open Last Admin: 11/01/20 16:16 Dose: 10 ml Documented by: Thiamine HCl (Thiamine 100 Mg Tab) 100 mg PO DAILY [facility] Discontinued Medications Clopidogrel Bisulfate (Clopidogrel 75 Mg Tab) 75 mg PO DAILY [facility] Famotidine (Famotidine 20 Mg/2 Ml Sdv) 20 mg IVPUSH ONETIME ONE Stop: 11/01/20 16:00 Last Admin: 11/01/20 16:17 Dose: 20 mg Documented by: Multivitamins/Minerals 10 ml/Thiamine HCl 100 mg/ Folic Acid 1 mg/ Lactated Ringer's 1,011.2 mls @ 999 mls/hr IV .BOLUS ONE Stop: 11/01/20 16:59 Last Admin: 11/01/20 16:20 Dose: 999 mls/hr Documented by: Lorazepam (Lorazepam 2 Mg/Ml Sdv) 2 mg IVPUSH Q2HR [facility] Last Admin: 11/01/20 17:42 Dose: 2 mg Documented by: Lorazepam (Lorazepam 2 Mg/Ml Sdv) 2 mg IVPUSH Q4H [facility] Ondansetron HCl (Ondansetron 4 Mg/2 Ml Sdv) 4 mg IV ONETIME ONE Stop: 11/01/20 16:00 Last Admin: 11/01/20 16:14 Dose: 4 mg Documented by: - Exam General: Alert, Oriented, Cooperative HEENT: Pupils Equal Neck: Supple Lungs: Clear to Auscultation, Normal Respiratory Effort Cardiovascular: Tachycardia (Mild tachycardia) GI/Abdominal Exam: Normal Bowel Sounds, Soft, Non-Tender, No Distention Extremities: Normal Inspection, No Pedal Edema Neurological: No New Focal Deficit Psy/Mental Status: Alert, Normal Affect, Hallucinations, Withdrawal Symptoms - Patient Data Lab Results Last 24 hrs: Laboratory Results - last 24 hr 11/01/20 11/01/20 11/01/20 Range/Units 15:22 15:22 15:22 WBC 4.2 L (5.0-10.0) 10^3/uL RBC 5.44 (4.6-6.2) 10^6/uL Hgb 16.8 D (14.0-18.0) g/dL Hct 47.2 (40.0-54.0) % MCV 86.8 D (80-100) fL MCH 30.9 (27.0-34.0) pg MCHC 35.6 H (33.0-35.0) g/dL Plt Count 197 (150-450) 10^3/uL Neut % (Auto) 59.5 (42.2-75.2) % Lymph % (Auto) 29.2 (20.5-50.1) % [place] % (Auto) 10.6 H (2-8) % Eos % (Auto) 0.0 L (1.0-3.0) % Baso % (Auto) 0.7 (0.0-1.0) % PT 10.3 (9.0-12.0) SEC INR 1.0 (0.9-1.2) APTT 20.7 L (22.0-34.0) SEC Sodium 132 L (136-145) mmol/L Potassium 4.1 (3.5-5.1) mmol/L Chloride 92 L (98-107) mmol/L Carbon Dioxide 22 (21-32) mmol/L Anion Gap 22.1 H (7-13) mEq/L BUN 7 (7-18) mg/dL Creatinine 0.65 L (0.70-1.30) mg/dL Est Cr Clr Drug Dosing 129.47 mL/min Estimated GFR (MDRD) > 60 BUN/Creatinine Ratio 10.8 (No establ ref range) Glucose 268 H (70-99) mg/dL POC Glucose (70-99) mg/dL Calcium 8.1 L (8.5-10.1) mg/dL Magnesium (1.8-2.4) mg/dL Total Bilirubin 2.0 H (0.2-1.0) mg/dL AST 82 H (15-37) U/L ALT 105 H (16-63) U/L Alkaline Phosphatase 92 (46-116) U/L Troponin I < 0.017 (0.000-0.056) ng/mL B-Natriuretic Peptide 15 (0-100) pg/ml Total Protein 8.0 (6.4-8.2) g/dL Albumin 3.6 (3.4-5.0) g/dL Globulin 4.4 Albumin/Globulin Ratio 0.8 Amylase 65 (25-115) U/L Lipase 142 (73-393) U/L Urine Color (YELLOW) Urine Appearance (CLEAR) Urine pH (5.0-9.0) Ur Specific [place] (1.005-1.030) Urine Protein (NEGATIVE) Urine Glucose (UA) (NEGATIVE) Urine Ketones (NEGATIVE) Urine Occult Blood (NEGATIVE) Urine Nitrite (NEGATIVE) Urine Bilirubin (NEGATIVE) Urine Urobilinogen (0.2-1.0) mg/dL Ur Leukocyte Esterase (NEGATIVE) Urine RBC /HPF Urine WBC (0-5/HPF) /HPF Ur Epithelial Cells (NOT SEEN) /HPF Urine Bacteria (0-FEW/HPF) /HPF Granular Casts (Auto) Urine Opiates Screen (NEGATIVE) Ur Oxycodone Screen (NEGATIVE) Urine Methadone Screen (NEGATIVE) Ur Barbiturates Screen (NEGATIVE) U Tricyclic Antidepress (NEGATIVE) Ur Phencyclidine Scrn (NEGATIVE) Ur Amphetamine Screen (NEGATIVE) U Methamphetamines Scrn (NEGATIVE) Urine MDMA Screen (NEGATIVE) U Benzodiazepines Scrn (NEGATIVE) Urine Cocaine Screen (NEGATIVE) U Marijuana (THC) Screen (NEGATIVE) Ethyl Alcohol 393 (0) mg/dL 11/01/20 11/01/20 11/01/20 Range/Units 15:30 15:30 21:50 WBC (5.0-10.0) 10^3/uL RBC (4.6-6.2) 10^6/uL Hgb (14.0-18.0) g/dL Hct (40.0-54.0) % MCV (80-100) fL MCH (27.0-34.0) pg MCHC (33.0-35.0) g/dL Plt Count (150-450) 10^3/uL Neut % (Auto) (42.2-75.2) % Lymph % (Auto) (20.5-50.1) % [place] % (Auto) (2-8) % Eos % (Auto) (1.0-3.0) % Baso % (Auto) (0.0-1.0) % PT (9.0-12.0) SEC INR (0.9-1.2) APTT (22.0-34.0) SEC Sodium (136-145) mmol/L Potassium (3.5-5.1) mmol/L Chloride (98-107) mmol/L Carbon Dioxide (21-32) mmol/L Anion Gap (7-13) mEq/L BUN (7-18) mg/dL Creatinine (0.70-1.30) mg/dL Est Cr Clr Drug Dosing mL/min Estimated GFR (MDRD) BUN/Creatinine Ratio (No establ ref range) Glucose (70-99) mg/dL POC Glucose 232 H (70-99) mg/dL Calcium (8.5-10.1) mg/dL Magnesium (1.8-2.4) mg/dL Total Bilirubin (0.2-1.0) mg/dL AST (15-37) U/L ALT (16-63) U/L Alkaline Phosphatase (46-116) U/L Troponin I (0.000-0.056) ng/mL B-Natriuretic Peptide (0-100) pg/ml Total Protein (6.4-8.2) g/dL Albumin (3.4-5.0) g/dL Globulin Albumin/Globulin Ratio Amylase (25-115) U/L Lipase (73-393) U/L Urine Color Yellow (YELLOW) Urine Appearance Clear (CLEAR) Urine pH 5.5 (5.0-9.0) Ur Specific [place] 1.025 (1.005-1.030) Urine Protein >=300 H (NEGATIVE) Urine Glucose (UA) 500 H (NEGATIVE) Urine Ketones 80 H (NEGATIVE) Urine Occult Blood Moderate H (NEGATIVE) Urine Nitrite Negative (NEGATIVE) Urine Bilirubin Negative (NEGATIVE) Urine Urobilinogen 0.2 (0.2-1.0) mg/dL Ur Leukocyte Esterase Negative (NEGATIVE) Urine RBC 0-5 /HPF Urine WBC 0-5 (0-5/HPF) /HPF Ur Epithelial Cells Few (NOT SEEN) /HPF Urine Bacteria Rare (0-FEW/HPF) /HPF Granular Casts (Auto) Few Urine Opiates Screen Negative (NEGATIVE) Ur Oxycodone Screen Negative (NEGATIVE) Urine Methadone Screen Negative (NEGATIVE) Ur Barbiturates Screen Negative (NEGATIVE) U Tricyclic Antidepress Negative (NEGATIVE) Ur Phencyclidine Scrn Negative (NEGATIVE) Ur Amphetamine Screen Negative (NEGATIVE) U Methamphetamines Scrn Negative (NEGATIVE) Urine MDMA Screen Negative (NEGATIVE) U Benzodiazepines Scrn Negative (NEGATIVE) Urine Cocaine Screen Negative (NEGATIVE) U Marijuana (THC) Screen Negative (NEGATIVE) Ethyl Alcohol (0) mg/dL 11/02/20 11/02/20 11/02/20 Range/Units 05:25 05:25 07:29 WBC 5.2 (5.0-10.0) 10^3/uL RBC 4.33 L (4.6-6.2) 10^6/uL Hgb 13.3 L D (14.0-18.0) g/dL Hct 38.9 L (40.0-54.0) % MCV 89.8 D (80-100) fL MCH 30.7 (27.0-34.0) pg MCHC 34.2 (33.0-35.0) g/dL Plt Count 130 L (150-450) 10^3/uL Neut % (Auto) 74.7 (42.2-75.2) % Lymph % (Auto) 15.4 L (20.5-50.1) % [place] % (Auto) 8.9 H (2-8) % Eos % (Auto) 0.6 L (1.0-3.0) % Baso % (Auto) 0.4 (0.0-1.0) % PT (9.0-12.0) SEC INR (0.9-1.2) APTT (22.0-34.0) SEC Sodium 138 (136-145) mmol/L Potassium 3.5 (3.5-5.1) mmol/L Chloride 99 (98-107) mmol/L Carbon Dioxide 26 (21-32) mmol/L Anion Gap 16.5 H (7-13) mEq/L BUN 10 (7-18) mg/dL Creatinine 0.68 L (0.70-1.30) mg/dL Est Cr Clr Drug Dosing 123.75 mL/min Estimated GFR (MDRD) > 60 BUN/Creatinine Ratio 14.7 (No establ ref range) Glucose 159 H (70-99) mg/dL POC Glucose 174 H (70-99) mg/dL Calcium 7.1 L (8.5-10.1) mg/dL Magnesium 1.6 L (1.8-2.4) mg/dL Total Bilirubin 2.1 H (0.2-1.0) mg/dL AST 56 H (15-37) U/L ALT 78 H (16-63) U/L Alkaline Phosphatase 67 (46-116) U/L Troponin I (0.000-0.056) ng/mL B-Natriuretic Peptide (0-100) pg/ml Total Protein 5.7 L (6.4-8.2) g/dL Albumin 2.8 L (3.4-5.0) g/dL Globulin 2.9 Albumin/Globulin Ratio 0.97 Amylase (25-115) U/L Lipase (73-393) U/L Urine Color (YELLOW) Urine Appearance (CLEAR) Urine pH (5.0-9.0) Ur Specific [place] (1.005-1.030) Urine Protein (NEGATIVE) Urine Glucose (UA) (NEGATIVE) Urine Ketones (NEGATIVE) Urine Occult Blood (NEGATIVE) Urine Nitrite (NEGATIVE) Urine Bilirubin (NEGATIVE) Urine Urobilinogen (0.2-1.0) mg/dL Ur Leukocyte Esterase (NEGATIVE) Urine RBC /HPF Urine WBC (0-5/HPF) /HPF Ur Epithelial Cells (NOT SEEN) /HPF Urine Bacteria (0-FEW/HPF) /HPF Granular Casts (Auto) Urine Opiates Screen (NEGATIVE) Ur Oxycodone Screen (NEGATIVE) Urine Methadone Screen (NEGATIVE) Ur Barbiturates Screen (NEGATIVE) U Tricyclic Antidepress (NEGATIVE) Ur Phencyclidine Scrn (NEGATIVE) Ur Amphetamine Screen (NEGATIVE) U Methamphetamines Scrn (NEGATIVE) Urine MDMA Screen (NEGATIVE) U Benzodiazepines Scrn (NEGATIVE) Urine Cocaine Screen (NEGATIVE) U Marijuana (THC) Screen (NEGATIVE) Ethyl Alcohol (0) mg/dL Result Diagrams: 11/02/20 05:25 11/02/20 05:25 Sepsis Event Note - Evaluation Sepsis Screening Result: No Definite Risk - Focused Exam Vital Signs: Vital Signs Temp Pulse Resp BP Pulse Ox Pulse Ox 11/02/20 04:00 97.3 F 99 19 115/70 96 96 11/02/20 00:00 99.1 F 119 H 19 110/66 97 97 11/01/20 21:03 98.6 F 111 H 16 120/74 99 - Problem List Review Problem List Initiated/Reviewed/Updated: Yes - My Orders Last 24 Hours: My Active Orders 11/01/20 16:46 Admission Diagnosis [ADT] Routine Patient Status [ADT] Routine 11/01/20 17:03 Cardiac Monitoring [RC] 08,20 Oxygen Therapy [RC] .PRN Pulse Oximetry [RC] PRN Up With Assistance [RC] ASDIRECTED VTE/DVT Education [RC] PER UNIT ROUTINE Vital Signs [RC] 00,04,08,12,16,20 Docusate Sodium [Colace] 100 mg PO BID PRN Ondansetron [Zofran] 4 mg IVPUSH Q4H PRN Resuscitation Status Routine 11/01/20 17:06 Consult to Case Management/Hospice/Home Health Aide [CONS] Routine 11/01/20 17:09 Aspiration Precautions [RC] ASDIRECTED [facility] Assessment [RC] Q1H Notify Provider [RC] ,20 LORazepam [Ativan] See Protocol IV TITRATE PRN Metoprolol Tartrate [Lopressor] 25 mg PO Q6H PRN Seizure Precautions [OM.PC] Stat 11/01/20 Dinner Heart Healthy Diet [DIET] Dextrose 50% in Water 50 ml IV Q15M PRN Enoxaparin [Lovenox] 40 mg SUBCUT DAILY Glucagon,Human Recombinant [GlucaGen] 1 mg IM Q15M PRN Lactated Ringers [Ringers, Lactated] 1,000 ml IV ASDIRECTED lisinopriL [Prinivil] 10 mg PO ASDIRECTED 11/01/20 18:00 Insulin Lispro [HumaLOG] See Protocol SUBCUT WITHMEALSANDBED 11/01/20 19:01 CPAP Noctural Home [RT BiPAP/CPAP] [RC] 00,04,08,12,16,20 11/01/20 21:00 Pantoprazole [ProTONIX IV] 40 mg IVPUSH Q12HR Sertraline [Zoloft] 25 mg PO BEDTIME carvediloL [Coreg] 3.125 mg PO BID 11/02/20 06:55 Magnesium Sulfate/Water [Magnesium Sulfate in Water 2 GM/50 ML] 2 gm in 50 ml IV ONETIME 11/02/20 08:00 Aspirin 81 mg PO WITHBREAKFAST 11/02/20 09:00 Clopidogrel [Plavix] 75 mg PO DAILY Folic Acid 1 mg PO DAILY Multivitamins,Therapeutic [Thera] 1 each PO DAILY Thiamine [Vitamin B-1] 100 mg PO DAILY 11/03/20 17:15 CBC WITH AUTO DIFF [HEME] DAILY COMPREHENSIVE METABOLIC PN,CMP [CHEM] DAILY MAGNESIUM [CHEM] DAILY 11/04/20 17:15 CBC WITH AUTO DIFF [HEME] DAILY COMPREHENSIVE METABOLIC PN,CMP [CHEM] DAILY MAGNESIUM [CHEM] DAILY - Plan Plan:: 55-year-old gentleman with past medical history as listed above who presents to the [facility] emergency department with significant alcohol intoxication and requesting to undergo withdrawal treatment. 1. Acute alcohol intoxication, now displaying alcohol withdrawal symptoms. Patient has already received a banana bag and 1 dose of Ativan thus far in the emergency department. Continue with CIWA protocol. Schedule Ativan discontinued for worrisome sleep apnea requiring BiPAP overnight. Required minimal Ativan overnight. Scoring somewhat higher this morning. Continues to have auditory and visual hallucinations of individuals who are from [place]. They seem to be worrying him and he is trying to tune them out. Otherwise not agitated and not a harm to his own care, or a threat to nurses. Thiamine and folate replacement. Continuous cardiac monitoring. As needed beta-dalia with hold parameters as necessary for rebound hypertension. Case management social work consult. Seizure precautions. Continue intravascular volume repletion with LR. Anion gap continues to be mildly increased. 2. Subjectively stated recent myocardial infarction. Continue dual antiplatelet therapy. Try to obtain records from treating facility. 3. Type 2 diabetes mellitus. Oral hypoglycemics will be placed on hold. Invoke hospital hyperglycemia protocol. 4. History of GI bleeding and esophageal varices. Protonix twice daily. Zofran for nausea. Monitor for bleeding. 5. Liver transaminitis. Mild increase in numbers. Avoid hepatotoxins. 6. Significant sleep apnea. Nocturnal BiPAP. Respiratory therapy consult. CODE STATUS: Full code. DVT prophylaxis with Lovenox.
[2020-11-02] MEDS ORDERED: Clopidogrel 75 MG Tab PO SCH (09:00)
[2020-11-02] MEDS: Carvedilol 3.125 MG Tab PO SCH ×2 (09:29→21:23)
[2020-11-02] MEDS: Enoxaparin 40 MG/0.4 ML Syringe SUBCUT SCH (09:29)
[2020-11-02] MEDS: Thiamine 100 MG Tab PO SCH (09:30)
[2020-11-02] MEDS: Multivitamins,Therapeutic Tab PO SCH (09:30)
[2020-11-02] MEDS: Clopidogrel 75 MG Tab PO SCH (09:30)
[2020-11-02] MEDS: Folic Acid 1 MG Tab PO SCH (09:30)
[2020-11-02] MEDS: Aspirin 81 MG Tab.Chew PO SCH (09:30)
[2020-11-02] MEDS: Insulin Lispro 100 Units/ML 3 ML Vial SUBCUT SCH ×4 (09:31→21:26)
[2020-11-02] MEDS: Sertraline 50 MG Tab PO SCH (21:24)
[2020-11-03] MEDS: LORazepam 2 MG/ML SDV IV PRN ×3 (00:26→04:54)
[2020-11-03] MEDS: Lactated Ringers 1,000 ML IV SCH ×3 (03:18→13:08)
[2020-11-03 06:53] LABS: ANION GAP 13.3 mEq/L (7-13); CHLORIDE,CL 102 mmol/L (98-107); SODIUM,NA 141 mmol/L (136-145)
[2020-11-03] MEDS ORDERED: Potassium Chloride 20 MEQ in Premix Bag 1 BAG IV ONE ×2 (07:02→10:00)
--- NOTE | 2020-11-03 07:38 | PCM.PN ---
- General Info Date of Service: 11/03/20 Admission Dx/Problem (Free Text): Admission Diagnosis/Problem Admission Diagnosis/Problem Intoxication Subjective Update: Hospital day 3. Patient seen and examined at bedside. Patient continues to score high at times on CIWA. Easily redirectable as he is scared when he does wake up. Visual and auditory hallucinations appreciated by nursing staff. Has required 17 mg of as needed Ativan in a 12-hour shift. Responds well to Ativan. Patient not awake at current time in order to provide any subjective history. No other specific nursing concerns. - Patient Data Vitals - Most Recent: Last Vital Signs Temp 99.1 F 11/03/20 04:00 Pulse 81 11/03/20 04:00 Resp 20 11/03/20 04:00 BP 130/68 11/03/20 04:00 Pulse Ox 97 11/03/20 04:00 Weight - Most Recent: 207 lb 12.8 oz I&O - Last 24 Hours: Intake & Output 11/02/20 11/03/20 11/03/20 22:59 06:59 14:59 Intake Total 20 Balance 20 Lab Results Last 24 Hours: Laboratory Results - last 24 hr 11/02/20 11/02/20 11/02/20 Range/Units 07:29 11:47 16:40 WBC (5.0-10.0) 10^3/uL RBC (4.6-6.2) 10^6/uL Hgb (14.0-18.0) g/dL Hct (40.0-54.0) % MCV (80-100) fL MCH (27.0-34.0) pg MCHC (33.0-35.0) g/dL Plt Count (150-450) 10^3/uL Neut % (Auto) (42.2-75.2) % Lymph % (Auto) (20.5-50.1) % [place] % (Auto) (2-8) % Eos % (Auto) (1.0-3.0) % Baso % (Auto) (0.0-1.0) % Sodium (136-145) mmol/L Potassium (3.5-5.1) mmol/L Chloride (98-107) mmol/L Carbon Dioxide (21-32) mmol/L Anion Gap (7-13) mEq/L BUN (7-18) mg/dL Creatinine (0.70-1.30) mg/dL Est Cr Clr Drug Dosing mL/min Estimated GFR (MDRD) BUN/Creatinine Ratio (No establ ref range) Glucose (70-99) mg/dL POC Glucose 174 H 218 H 187 H (70-99) mg/dL Calcium (8.5-10.1) mg/dL Magnesium (1.8-2.4) mg/dL Total Bilirubin (0.2-1.0) mg/dL AST (15-37) U/L ALT (16-63) U/L Alkaline Phosphatase (46-116) U/L Total Protein (6.4-8.2) g/dL Albumin (3.4-5.0) g/dL Globulin Albumin/Globulin Ratio 11/02/20 11/03/20 11/03/20 Range/Units 20:54 06:10 06:10 WBC 3.8 L (5.0-10.0) 10^3/uL RBC 4.07 L (4.6-6.2) 10^6/uL Hgb 12.5 L (14.0-18.0) g/dL Hct 37.0 L (40.0-54.0) % MCV 90.9 (80-100) fL MCH 30.7 (27.0-34.0) pg MCHC 33.8 (33.0-35.0) g/dL Plt Count 98 L (150-450) 10^3/uL Neut % (Auto) 72.7 (42.2-75.2) % Lymph % (Auto) 18.0 L (20.5-50.1) % [place] % (Auto) 7.7 (2-8) % Eos % (Auto) 0.8 L (1.0-3.0) % Baso % (Auto) 0.8 (0.0-1.0) % Sodium 141 (136-145) mmol/L Potassium 3.3 L (3.5-5.1) mmol/L Chloride 102 (98-107) mmol/L Carbon Dioxide 29 (21-32) mmol/L Anion Gap 13.3 H (7-13) mEq/L BUN 7 (7-18) mg/dL Creatinine 0.65 L (0.70-1.30) mg/dL Est Cr Clr Drug Dosing 129.47 mL/min Estimated GFR (MDRD) > 60 BUN/Creatinine Ratio 10.8 (No establ ref range) Glucose 224 H (70-99) mg/dL POC Glucose 231 H (70-99) mg/dL Calcium 7.4 L (8.5-10.1) mg/dL Magnesium 1.7 L (1.8-2.4) mg/dL Total Bilirubin 2.3 H (0.2-1.0) mg/dL AST 41 H (15-37) U/L ALT 60 (16-63) U/L Alkaline Phosphatase 63 (46-116) U/L Total Protein 5.1 L (6.4-8.2) g/dL Albumin 2.5 L (3.4-5.0) g/dL Globulin 2.6 Albumin/Globulin Ratio 0.96 Med Orders - Current: Current Medications Aspirin (Aspirin 81 Mg Tab.Chew) 81 mg PO WITHBREAKFAST [facility], [facility] Last Admin: 11/02/20 09:30 Dose: 81 mg Documented by: Carvedilol (Carvedilol 3.125 Mg Tab) 3.125 mg PO BID [facility] Last Admin: 11/02/20 21:23 Dose: 3.125 mg Documented by: Clopidogrel Bisulfate (Clopidogrel 75 Mg Tab) 75 mg PO DAILY [facility] Last Admin: 11/02/20 09:30 Dose: 75 mg Documented by: Dextrose/Water (50% Dextrose In Water 50 Ml Syringe) 50 ml IV Q15M PRN PRN Reason: Hypoglycemia Docusate Sodium (Docusate Sodium 100 Mg Cap) 100 mg PO BID PRN PRN Reason: Constipation Enoxaparin Sodium (Enoxaparin 40 Mg/0.4 Ml Syringe) 40 mg SUBCUT DAILY [facility] Last Admin: 11/02/20 09:29 Dose: 40 mg Documented by: Folic Acid (Folic Acid 1 Mg Tab) 1 mg PO DAILY [facility] Stop: 11/04/20 09:01 Last Admin: 11/02/20 09:30 Dose: 1 mg Documented by: Glucagon (Glucagon,Human Recombinant 1 Mg Vial) 1 mg IM Q15M PRN PRN Reason: Hypoglycemia Lactated Ringer's (Ringers, Lactated) 1,000 mls @ 200 mls/hr IV ASDIRECTED [facility], [facility] Last Admin: 11/03/20 03:18 Dose: 200 mls/hr Documented by: Potassium Chloride 20 meq/ (Premix) 100 mls @ 50 mls/hr IV ONETIME ONE Stop: 11/03/20 09:01 Potassium Chloride 20 meq/ (Premix) 100 mls @ 50 mls/hr IV ONETIME ONE Stop: 11/03/20 11:59 Insulin Human Lispro (Insulin Lispro 100 Units/Ml 3 Ml Vial) 0 unit SUBCUT WITHMEALSANDBED [facility], [facility]; Protocol Last Admin: 11/02/20 21:26 Dose: 4 units Documented by: Lisinopril (Lisinopril 5 Mg Tab) 5 mg PO DAILY [facility] Lorazepam (Lorazepam 2 Mg/Ml Sdv) 0 mg IV TITRATE PRN; Protocol PRN Reason: alcohol withdrawal Last Admin: 11/03/20 04:54 Dose: 3 mg Documented by: Metoprolol Tartrate (Metoprolol Tartrate 25 Mg Tab) 25 mg PO Q6H PRN PRN Reason: See Label Comment Multivitamins (Multivitamins,Therapeutic Tab) 1 each PO DAILY [facility] Last Admin: 11/02/20 09:30 Dose: 1 each Documented by: Ondansetron HCl (Ondansetron 4 Mg/2 Ml Sdv) 4 mg IVPUSH Q4H PRN PRN Reason: Nausea/Vomiting Last Admin: 11/02/20 15:58 Dose: 4 mg Documented by: Pantoprazole Sodium (Pantoprazole 40 Mg Vial) 40 mg IVPUSH Q12HR [facility] Last Admin: 11/02/20 21:28 Dose: 40 mg Documented by: Sertraline HCl (Sertraline 50 Mg Tab) 25 mg PO BEDTIME [facility] Last Admin: 11/02/20 21:24 Dose: 25 mg Documented by: Sodium Chloride (Sodium Chloride 0.9% 10 Ml Syringe) 10 ml FLUSH ASDIRECTED PRN PRN Reason: Keep Vein Open Last Admin: 11/01/20 16:16 Dose: 10 ml Documented by: Thiamine HCl (Thiamine 100 Mg Tab) 100 mg PO DAILY [facility] Last Admin: 11/02/20 09:30 Dose: 100 mg Documented by: Discontinued Medications Clopidogrel Bisulfate (Clopidogrel 75 Mg Tab) 75 mg PO DAILY [facility] Famotidine (Famotidine 20 Mg/2 Ml Sdv) 20 mg IVPUSH ONETIME ONE Stop: 11/01/20 16:00 Last Admin: 11/01/20 16:17 Dose: 20 mg Documented by: Multivitamins/Minerals 10 ml/Thiamine HCl 100 mg/ Folic Acid 1 mg/ Lactated Ringer's 1,011.2 mls @ 999 mls/hr IV .BOLUS ONE Stop: 11/01/20 16:59 Last Admin: 11/01/20 16:20 Dose: 999 mls/hr Documented by: Magnesium Sulfate (Magnesium Sulfate In Water 2 Gm/50 Ml) 2 gm in 50 mls @ 25 mls/hr IV ONETIME ONE Stop: 11/02/20 08:54 Last Infusion: 11/02/20 10:14 Dose: Infused Documented by: Lorazepam (Lorazepam 2 Mg/Ml Sdv) 2 mg IVPUSH Q2HR [place] Last Admin: 11/01/20 17:42 Dose: 2 mg Documented by: Lorazepam (Lorazepam 2 Mg/Ml Sdv) 2 mg IVPUSH Q4H [place] Ondansetron HCl (Ondansetron 4 Mg/2 Ml Sdv) 4 mg IV ONETIME ONE Stop: 11/01/20 16:00 Last Admin: 11/01/20 16:14 Dose: 4 mg Documented by: - Exam General: Other (Sleeping) Lungs: Clear to Auscultation, Normal Respiratory Effort Cardiovascular: Regular Rate, Regular Rhythm GI/Abdominal Exam: Normal Bowel Sounds, Soft, Non-Tender, No Distention Extremities: Normal Inspection, No Pedal Edema Skin: Warm - Patient Data Lab Results Last 24 hrs: Laboratory Results - last 24 hr 11/02/20 11/02/20 11/02/20 Range/Units 07:29 11:47 16:40 WBC (5.0-10.0) 10^3/uL RBC (4.6-6.2) 10^6/uL Hgb (14.0-18.0) g/dL Hct (40.0-54.0) % MCV (80-100) fL MCH (27.0-34.0) pg MCHC (33.0-35.0) g/dL Plt Count (150-450) 10^3/uL Neut % (Auto) (42.2-75.2) % Lymph % (Auto) (20.5-50.1) % [place] % (Auto) (2-8) % Eos % (Auto) (1.0-3.0) % Baso % (Auto) (0.0-1.0) % Sodium (136-145) mmol/L Potassium (3.5-5.1) mmol/L Chloride (98-107) mmol/L Carbon Dioxide (21-32) mmol/L Anion Gap (7-13) mEq/L BUN (7-18) mg/dL Creatinine (0.70-1.30) mg/dL Est Cr Clr Drug Dosing mL/min Estimated GFR (MDRD) BUN/Creatinine Ratio (No establ ref range) Glucose (70-99) mg/dL POC Glucose 174 H 218 H 187 H (70-99) mg/dL Calcium (8.5-10.1) mg/dL Magnesium (1.8-2.4) mg/dL Total Bilirubin (0.2-1.0) mg/dL AST (15-37) U/L ALT (16-63) U/L Alkaline Phosphatase (46-116) U/L Total Protein (6.4-8.2) g/dL Albumin (3.4-5.0) g/dL Globulin Albumin/Globulin Ratio 11/02/20 11/03/20 11/03/20 Range/Units 20:54 06:10 06:10 WBC 3.8 L (5.0-10.0) 10^3/uL RBC 4.07 L (4.6-6.2) 10^6/uL Hgb 12.5 L (14.0-18.0) g/dL Hct 37.0 L (40.0-54.0) % MCV 90.9 (80-100) fL MCH 30.7 (27.0-34.0) pg MCHC 33.8 (33.0-35.0) g/dL Plt Count 98 L (150-450) 10^3/uL Neut % (Auto) 72.7 (42.2-75.2) % Lymph % (Auto) 18.0 L (20.5-50.1) % [place] % (Auto) 7.7 (2-8) % Eos % (Auto) 0.8 L (1.0-3.0) % Baso % (Auto) 0.8 (0.0-1.0) % Sodium 141 (136-145) mmol/L Potassium 3.3 L (3.5-5.1) mmol/L Chloride 102 (98-107) mmol/L Carbon Dioxide 29 (21-32) mmol/L Anion Gap 13.3 H (7-13) mEq/L BUN 7 (7-18) mg/dL Creatinine 0.65 L (0.70-1.30) mg/dL Est Cr Clr Drug Dosing 129.47 mL/min Estimated GFR (MDRD) > 60 BUN/Creatinine Ratio 10.8 (No establ ref range) Glucose 224 H (70-99) mg/dL POC Glucose 231 H (70-99) mg/dL Calcium 7.4 L (8.5-10.1) mg/dL Magnesium 1.7 L (1.8-2.4) mg/dL Total Bilirubin 2.3 H (0.2-1.0) mg/dL AST 41 H (15-37) U/L ALT 60 (16-63) U/L Alkaline Phosphatase 63 (46-116) U/L Total Protein 5.1 L (6.4-8.2) g/dL Albumin 2.5 L (3.4-5.0) g/dL Globulin 2.6 Albumin/Globulin Ratio 0.96 Result Diagrams: 11/03/20 06:10 11/03/20 06:10 Sepsis Event Note - Evaluation Sepsis Screening Result: No Definite Risk - Focused Exam Vital Signs: Vital Signs Temp Pulse Pulse Resp BP BP Pulse Ox 11/03/20 04:00 99.1 F 81 20 130/68 97 11/03/20 00:00 99.0 F 104 H 19 120/72 92 L 11/02/20 21:23 96 119/76 11/02/20 20:00 98.8 F 91 19 119/76 90 L - Problem List Review Problem List Initiated/Reviewed/Updated: Yes - My Orders Last 24 Hours: My Active Orders 11/02/20 08:00 Aspirin 81 mg PO WITHBREAKFAST 11/02/20 09:00 Clopidogrel [Plavix] 75 mg PO DAILY Folic Acid 1 mg PO DAILY Multivitamins,Therapeutic [Thera] 1 each PO DAILY Thiamine [Vitamin B-1] 100 mg PO DAILY 11/03/20 07:02 Potassium Chloride [KCL in Water 20 MEQ/100 ML] 20 meq Premix Bag 1 bag IV ONETIME 11/03/20 10:00 Potassium Chloride [KCL in Water 20 MEQ/100 ML] 20 meq Premix Bag 1 bag IV ONETIME 11/03/20 12:00 lisinopriL [Prinivil] 5 mg PO DAILY 11/04/20 17:15 CBC WITH AUTO DIFF [HEME] DAILY COMPREHENSIVE METABOLIC PN,CMP [CHEM] DAILY MAGNESIUM [CHEM] DAILY - Plan Plan:: 55-year-old gentleman with past medical history as listed above who presents to the [facility] emergency department with significant alcohol intoxication and requesting to undergo withdrawal treatment. 1. Acute alcohol intoxication, now with flagrant alcohol withdrawal.. Status post banana bag. Continue with CIWA protocol. Otherwise not agitated and not a harm to his own care, or a threat to nurses. Thiamine and folate replacement. Continuous cardiac monitoring. As needed beta-dalia with hold parameters as necessary for rebound hypertension. Case management social work consult. Seizure precautions. Continue intravascular volume repletion with LR. 2. Subjectively stated recent myocardial infarction. Continue dual antiplatelet therapy. 3. Type 2 diabetes mellitus. Oral hypoglycemics on hold. Continue hospital hyperglycemia protocol. 4. History of GI bleeding and esophageal varices. Protonix twice daily. Zofran for nausea. Monitor for bleeding. 5. Liver transaminitis. Mild increase in numbers, which continue to normalize Avoid hepatotoxins. 6. Significant sleep apnea. Nocturnal positive pressure support as needed. Respiratory therapy consult. 7. Hypokalemia. Replacement needed this morning. K riders ordered. CODE STATUS: Full code. DVT prophylaxis with Lovenox.
[2020-11-03] MEDS: Pantoprazole 40 MG Vial IVPUSH SCH ×2 (10:31→22:05)
[2020-11-03] MEDS: Enoxaparin 40 MG/0.4 ML Syringe SUBCUT SCH (10:31)
[2020-11-03] MEDS: Insulin Lispro 100 Units/ML 3 ML Vial SUBCUT SCH ×4 (11:58→22:07)
[2020-11-03] MEDS: Multivitamins,Therapeutic Tab PO SCH (13:03)
[2020-11-03] MEDS: Folic Acid 1 MG Tab PO SCH (13:03)
[2020-11-03] MEDS: Thiamine 100 MG Tab PO SCH (13:03)
[2020-11-03] MEDS: Clopidogrel 75 MG Tab PO SCH (13:04)
[2020-11-03] MEDS: Carvedilol 3.125 MG Tab PO SCH ×2 (13:04→22:04)
[2020-11-03] MEDS: LORazepam 1 MG Tab PO PRN ×4 (13:05→22:16)
[2020-11-03] MEDS: Lisinopril 5 MG Tab PO SCH (13:05)
[2020-11-03] MEDS: Aspirin 81 MG Tab.Chew PO SCH (13:13)
[2020-11-03] MEDS: Sertraline 50 MG Tab PO SCH (22:04)
[2020-11-03] MEDS: traMADol 50 MG Tab PO PRN (22:15)
[2020-11-04] MEDS: LORazepam 1 MG Tab PO PRN ×4 (00:19→12:39)
[2020-11-04] MEDS: traMADol 50 MG Tab PO PRN ×2 (03:40→08:33)
[2020-11-04 06:51] LABS: ANION GAP 12.1 mEq/L (7-13); CHLORIDE,CL 101 mmol/L (98-107); SODIUM,NA 137 mmol/L (136-145)
--- NOTE | 2020-11-04 07:17 | PCM.PN ---
- General Info Date of Service: 11/04/20 Admission Dx/Problem (Free Text): Admission Diagnosis/Problem Admission Diagnosis/Problem Intoxication Subjective Update: Hospital day 4. Patient seen and examined at bedside. No acute events overnight. No new nursing concerns. CIWA scores in the high teens and low 20s. Redirectable. Patient is pleasant. Not agitated. No reports of hallucinations. Ativan with good effect. Able to tolerate p.o. while awake. Generalized pains were controlled with p.o. tramadol. - Patient Data Vitals - Most Recent: Last Vital Signs Temp 98.7 F 11/04/20 03:39 Pulse 87 11/04/20 03:39 Resp 18 11/04/20 03:39 BP 139/77 11/04/20 03:39 Pulse Ox 95 11/04/20 03:39 Weight - Most Recent: 207 lb 12.8 oz I&O - Last 24 Hours: Intake & Output 11/03/20 11/04/20 11/04/20 22:59 06:59 14:59 Intake Total 799 200 Balance 799 200 Lab Results Last 24 Hours: Laboratory Results - last 24 hr 11/03/20 11/03/20 11/03/20 Range/Units 07:41 11:47 17:07 WBC (5.0-10.0) 10^3/uL RBC (4.6-6.2) 10^6/uL Hgb (14.0-18.0) g/dL Hct (40.0-54.0) % MCV (80-100) fL MCH (27.0-34.0) pg MCHC (33.0-35.0) g/dL Plt Count (150-450) 10^3/uL Neut % (Auto) (42.2-75.2) % Lymph % (Auto) (20.5-50.1) % [place] % (Auto) (2-8) % Eos % (Auto) (1.0-3.0) % Baso % (Auto) (0.0-1.0) % POC Glucose 198 H 171 H 219 H (70-99) mg/dL 11/03/20 11/04/20 11/04/20 Range/Units 20:55 06:05 06:48 WBC 4.1 L (5.0-10.0) 10^3/uL RBC 4.38 L (4.6-6.2) 10^6/uL Hgb 13.6 L (14.0-18.0) g/dL Hct 39.7 L (40.0-54.0) % MCV 90.6 (80-100) fL MCH 31.1 (27.0-34.0) pg MCHC 34.3 (33.0-35.0) g/dL Plt Count 85 L (150-450) 10^3/uL Neut % (Auto) 65.5 (42.2-75.2) % Lymph % (Auto) 22.4 (20.5-50.1) % [place] % (Auto) 9.2 H (2-8) % Eos % (Auto) 2.4 (1.0-3.0) % Baso % (Auto) 0.5 (0.0-1.0) % POC Glucose 226 H 182 H (70-99) mg/dL Med Orders - Current: Current Medications Aspirin (Aspirin 81 Mg Tab.Chew) 81 mg PO WITHBREAKFAST [facility] Last Admin: 11/03/20 13:13 Dose: 81 mg Documented by: Carvedilol (Carvedilol 3.125 Mg Tab) 3.125 mg PO BID [facility] Last Admin: 11/03/20 22:04 Dose: 3.125 mg Documented by: Clopidogrel Bisulfate (Clopidogrel 75 Mg Tab) 75 mg PO DAILY [facility] Last Admin: 11/03/20 13:04 Dose: 75 mg Documented by: Dextrose/Water (50% Dextrose In Water 50 Ml Syringe) 50 ml IV Q15M PRN PRN Reason: Hypoglycemia Docusate Sodium (Docusate Sodium 100 Mg Cap) 100 mg PO BID PRN PRN Reason: Constipation Enoxaparin Sodium (Enoxaparin 40 Mg/0.4 Ml Syringe) 40 mg SUBCUT DAILY [facility] Last Admin: 11/03/20 10:31 Dose: 40 mg Documented by: Folic Acid (Folic Acid 1 Mg Tab) 1 mg PO DAILY [facility] Stop: 11/04/20 09:01 Last Admin: 11/03/20 13:03 Dose: 1 mg Documented by: Glucagon (Glucagon,Human Recombinant 1 Mg Vial) 1 mg IM Q15M PRN PRN Reason: Hypoglycemia Insulin Human Lispro (Insulin Lispro 100 Units/Ml 3 Ml Vial) 0 unit SUBCUT WITHMEALSANDBED [facility]; Protocol Last Admin: 11/03/20 22:07 Dose: 4 units Documented by: Lisinopril (Lisinopril 5 Mg Tab) 5 mg PO DAILY [facility] Last Admin: 11/03/20 13:05 Dose: 5 mg Documented by: Lorazepam (Lorazepam 2 Mg/Ml Sdv) 0 mg IV TITRATE PRN; Protocol PRN Reason: alcohol withdrawal Last Admin: 11/03/20 04:54 Dose: 3 mg Documented by: Lorazepam (Lorazepam 1 Mg Tab) 0 mg PO TITRATE PRN; Protocol PRN Reason: alcohol withdrawal Last Admin: 11/04/20 03:45 Dose: 2 mg Documented by: Metoprolol Tartrate (Metoprolol Tartrate 25 Mg Tab) 25 mg PO Q6H PRN PRN Reason: See Label Comment Multivitamins (Multivitamins,Therapeutic Tab) 1 each PO DAILY [facility] Last Admin: 11/03/20 13:03 Dose: 1 each Documented by: Ondansetron HCl (Ondansetron 4 Mg/2 Ml Sdv) 4 mg IVPUSH Q4H PRN PRN Reason: Nausea/Vomiting Last Admin: 11/02/20 15:58 Dose: 4 mg Documented by: Pantoprazole Sodium (Pantoprazole 40 Mg Vial) 40 mg IVPUSH Q12HR [facility] Last Admin: 11/03/20 22:05 Dose: 40 mg Documented by: Sertraline HCl (Sertraline 50 Mg Tab) 25 mg PO BEDTIME [facility] Last Admin: 11/03/20 22:04 Dose: 25 mg Documented by: Sodium Chloride (Sodium Chloride 0.9% 10 Ml Syringe) 10 ml FLUSH ASDIRECTED PRN PRN Reason: Keep Vein Open Last Admin: 11/01/20 16:16 Dose: 10 ml Documented by: Thiamine HCl (Thiamine 100 Mg Tab) 100 mg PO DAILY [facility] Last Admin: 11/03/20 13:03 Dose: 100 mg Documented by: Tramadol HCl (Tramadol 50 Mg Tab) 50 mg PO Q4H PRN PRN Reason: Pain Last Admin: 11/04/20 03:40 Dose: 50 mg Documented by: Discontinued Medications Clopidogrel Bisulfate (Clopidogrel 75 Mg Tab) 75 mg PO DAILY [facility] Famotidine (Famotidine 20 Mg/2 Ml Sdv) 20 mg IVPUSH ONETIME ONE Stop: 11/01/20 16:00 Last Admin: 11/01/20 16:17 Dose: 20 mg Documented by: Multivitamins/Minerals 10 ml/Thiamine HCl 100 mg/ Folic Acid 1 mg/ Lactated Ringer's 1,011.2 mls @ 999 mls/hr IV .BOLUS ONE Stop: 11/01/20 16:59 Last Admin: 11/01/20 16:20 Dose: 999 mls/hr Documented by: Lactated Ringer's (Ringers, Lactated) 1,000 mls @ 200 mls/hr IV ASDIRECTED [facility] Last Admin: 11/03/20 13:08 Dose: 200 mls/hr Documented by: Magnesium Sulfate (Magnesium Sulfate In Water 2 Gm/50 Ml) 2 gm in 50 mls @ 25 mls/hr IV ONETIME ONE Stop: 11/02/20 08:54 Last Infusion: 11/02/20 10:14 Dose: Infused Documented by: Potassium Chloride 20 meq/ (Premix) 100 mls @ 50 mls/hr IV ONETIME ONE Stop: 11/03/20 09:01 Last Infusion: 11/03/20 10:02 Dose: Infused Documented by: Potassium Chloride 20 meq/ (Premix) 100 mls @ 50 mls/hr IV ONETIME ONE Stop: 11/03/20 11:59 Last Admin: 11/03/20 10:04 Dose: 50 mls/hr Documented by: Lorazepam (Lorazepam 2 Mg/Ml Sdv) 2 mg IVPUSH Q2HR [facility] Last Admin: 11/01/20 17:42 Dose: 2 mg Documented by: Lorazepam (Lorazepam 2 Mg/Ml Sdv) 2 mg IVPUSH Q4H [facility] Ondansetron HCl (Ondansetron 4 Mg/2 Ml Sdv) 4 mg IV ONETIME ONE Stop: 11/01/20 16:00 Last Admin: 11/01/20 16:14 Dose: 4 mg Documented by: - Exam General: Other (Drowsy) HEENT: Pupils Equal Lungs: Clear to Auscultation, Normal Respiratory Effort Cardiovascular: Regular Rate, Regular Rhythm GI/Abdominal Exam: Normal Bowel Sounds, Soft, Non-Tender, No Distention Extremities: Normal Inspection, No Pedal Edema Skin: Warm Neurological: Other (No appreciable tremor) - Patient Data Lab Results Last 24 hrs: Laboratory Results - last 24 hr 11/03/20 11/03/20 11/03/20 Range/Units 07:41 11:47 17:07 WBC (5.0-10.0) 10^3/uL RBC (4.6-6.2) 10^6/uL Hgb (14.0-18.0) g/dL Hct (40.0-54.0) % MCV (80-100) fL MCH (27.0-34.0) pg MCHC (33.0-35.0) g/dL Plt Count (150-450) 10^3/uL Neut % (Auto) (42.2-75.2) % Lymph % (Auto) (20.5-50.1) % [place] % (Auto) (2-8) % Eos % (Auto) (1.0-3.0) % Baso % (Auto) (0.0-1.0) % POC Glucose 198 H 171 H 219 H (70-99) mg/dL 11/03/20 11/04/20 11/04/20 Range/Units 20:55 06:05 06:48 WBC 4.1 L (5.0-10.0) 10^3/uL RBC 4.38 L (4.6-6.2) 10^6/uL Hgb 13.6 L (14.0-18.0) g/dL Hct 39.7 L (40.0-54.0) % MCV 90.6 (80-100) fL MCH 31.1 (27.0-34.0) pg MCHC 34.3 (33.0-35.0) g/dL Plt Count 85 L (150-450) 10^3/uL Neut % (Auto) 65.5 (42.2-75.2) % Lymph % (Auto) 22.4 (20.5-50.1) % [place] % (Auto) 9.2 H (2-8) % Eos % (Auto) 2.4 (1.0-3.0) % Baso % (Auto) 0.5 (0.0-1.0) % POC Glucose 226 H 182 H (70-99) mg/dL Result Diagrams: 11/04/20 06:05 11/03/20 06:10 Sepsis Event Note - Evaluation Sepsis Screening Result: No Definite Risk - Focused Exam Vital Signs: Vital Signs Temp Pulse Pulse Resp BP BP Pulse Ox 11/04/20 03:39 98.7 F 87 18 139/77 95 11/04/20 00:00 98.5 F 88 19 97 11/03/20 22:04 92 120/80 11/03/20 19:35 98.6 F 93 18 120/80 96 - Problem List Review Problem List Initiated/Reviewed/Updated: Yes - My Orders Last 24 Hours: My Active Orders 11/03/20 12:00 lisinopriL [Prinivil] 5 mg PO DAILY 11/03/20 12:49 LORazepam [Ativan] See Protocol PO TITRATE PRN 11/03/20 19:05 traMADol [Ultram] 50 mg PO Q4H PRN 11/04/20 06:05 COMPREHENSIVE METABOLIC PN,CMP [CHEM] DAILY MAGNESIUM [CHEM] DAILY - Plan Plan:: 55-year-old gentleman with past medical history as listed above who presents to the [facility] emergency department with significant alcohol intoxication and requesting to undergo withdrawal treatment. 1. Acute alcohol intoxication, now with alcohol withdrawal. Status post banana bag. Continue with CIWA protocol, with less aggressive dosing of benzodiazepines. We will see how he responds with less sedation 4 days out from last drink. Otherwise not agitated and not a harm to his own care, or a threat to nurses. Thiamine and folate replacement. Continuous cardiac monitoring. As needed beta-dalia with hold parameters as necessary for rebound hypertension. Case management social work consult. Seizure precautions can be removed. Patient is low risk at this time. Continue intravascular volume repletion with LR. 2. Subjectively stated recent myocardial infarction. Continue dual antiplatelet therapy. 3. Type 2 diabetes mellitus. Oral hypoglycemics on hold. Continue hospital hyperglycemia protocol. 4. History of GI bleeding and esophageal varices. Protonix twice daily. Zofran for nausea. Monitor for bleeding. 5. Liver transaminitis. Mild increase in numbers, which continue to normalize Avoid hepatotoxins. 6. Significant sleep apnea. Nocturnal positive pressure support as needed. Respiratory therapy consult. 7. Hypokalemia. Replacement as needed. Lab holiday given today. Recheck tomorrow. CODE STATUS: Full code. DVT prophylaxis with Lovenox.
[2020-11-04] MEDS: Aspirin 81 MG Tab.Chew PO SCH (08:30)
[2020-11-04] MEDS: Thiamine 100 MG Tab PO SCH (08:31)
[2020-11-04] MEDS: Lisinopril 5 MG Tab PO SCH (08:31)
[2020-11-04] MEDS: Folic Acid 1 MG Tab PO SCH (08:31)
[2020-11-04] MEDS: Clopidogrel 75 MG Tab PO SCH (08:32)
[2020-11-04] MEDS: Multivitamins,Therapeutic Tab PO SCH (08:32)
[2020-11-04] MEDS: Carvedilol 3.125 MG Tab PO SCH (08:32)
[2020-11-04] MEDS: Enoxaparin 40 MG/0.4 ML Syringe SUBCUT SCH (08:36)
[2020-11-04] MEDS: Insulin Lispro 100 Units/ML 3 ML Vial SUBCUT SCH ×3 (08:38→18:09)
[2020-11-04] MEDS ORDERED: Potassium Chloride 10 MEQ Tab.ER PO ONE (09:00)
[2020-11-04] MEDS ORDERED: Magnesium Sulfate/Water 2 GM/50 ML BAG IV ONE (09:00)
[2020-11-04] MEDS: Sodium Chloride 0.9% 10 ML Syringe FLUSH PRN (09:39)
[2020-11-04] MEDS: Pantoprazole 40 MG Vial IVPUSH SCH (09:39)
[2020-11-04] MEDS ORDERED: Carboxymethylcellulose Sodium 1% Ophth Gel 0.4 ML UD EYEBOTH PRN (10:09)
[2020-11-04] MEDS ORDERED: Non-Formulary Medication 1 Each (Dextrose [Glucose] 4 GM Tab.Chew) PO PRN (11:48)
[2020-11-04] MEDS ORDERED: Aspirin 81 MG Tab.EC PO SCH (12:00)
--- NOTE | 2020-11-04 16:40 | PCM.DCSUM1 ---
Discharge Summary - Hospital Course Free Text/Narrative:: 55-year-old gentleman who presented to the [facility] emergency department with significant alcohol intoxication and requesting to undergo withdrawal treatment. 1. Acute alcohol intoxication upon arrival, treated for alcohol withdrawal. Patient received initial treatment with banana bag and Ativan in the emergency department. The patient was exquisitely intoxicated upon initial presentation with an alcohol level of 400. He was starting to hallucinate at that point. The patient did endorse a history of continuously drinking for 2 weeks straight, as much as he could handle of any kind of alcohol. Patient was admitted to the inpatient service for further work-up and monitoring. He was kept on telemetry monitoring. His laboratory studies were intermittently checked. He did require electrolyte replacement as needed. Patient underwent aggressive CIWA protocol with scheduled and as needed Ativan. The patient was never aggressive or a hindrance to his own care. CIWA scores did sometimes exceed 25 but he was calm. He is responded well to Ativan administration. Patient was given alcohol cessation education every day that he was lucid. On November 04, his mental status greatly improved. His CIWA scores were minimal. He was no longer hallucinating. There were no obvious tremors at that point. The patient was informed on November 04, that his sister who was a coronavirus 19 patient at another facility had . 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 As he was doing well, soaring minimally, and no longer hallucinating, with clear thoughts and speech; discharge was granted. The patient is very low risk for seizure at this point and is safe for discharge. He never showed signs of active seizure activity while in the hospital. 2. Subjectively stated recent myocardial infarction. He was continued on dual antiplatelet therapy and statin. 3. Type 2 diabetes mellitus. Oral hypoglycemics were put on hold. The hospital hyperglycemia protocol was invoked during his stay. 4. History of GI bleeding and esophageal varices. Protonix twice daily. Zofran for nausea. Monitor for bleeding. 5. Liver transaminitis. Patient had a mild transaminitis which normalized by the time of discharge. Hepatotoxins were avoided. 6. Significant sleep apnea. On the first night of his treatment, he had notable sleep apnea. Patient had to be monitored on minimal BiPAP settings in order to ventilate. This was only that one night. 7. Hypokalemia. Replacement was given as necessary. CODE STATUS: Full code. DVT prophylaxis with Lovenox while in the hospital. HPI Initial Comments: [facility] complaint: Alcohol intoxication with wishes to become sober. History present illness: Patient is a 55-year-old male with a past medical history as listed below who presents to the [facility] emergency department due to the above- stated chief complaint. Despite his level of significant intoxication the patient is able to endorse a recent history of 2 family members dying due to significant drug use relatively recently. He has been drinking to kill the pain. He is also been experiencing significant physical pain along with this. He states that he hurts all over. He has been drinking both liquor and beer for 2 weeks straight. He states that he can drink all he can get his hands on. He cannot quantify any more specifically. Patient endorses a long history of alcohol abuse, including multiple admissions to the hospital. He denies ever being in an intensive care setting. He denies prior seizure or having to be intubated. Patient states that he is seeing 2 people at the bedside that are not present that are talking to him and telling him to get out of the bed. He is trying to resist their efforts. In the emergency department, laboratory values were notable for mild acute alcoholic hepatitis. His alcohol level was nearly 400. Patient communicated to ER personnel that he wished to become sober, therefore the internal medicine service was contacted for admission for management of acute alcohol intoxication and likely impending withdrawal. The patient states that he currently has a headache. He has diffuse muscle aches. He denies any lightheadedness/dizziness, chest pain, chest pressure, pleurisy, abdominal discomfort, or difficulties with voiding. He states that he had some nausea with vomiting over the past couple of days. In addition, the patient states that he was in [place], [place] about 2 weeks ago when he had an acute [place]. He was hospitalized and underwent cardiac catheterization. The patient is able to provide evidence of the radial insertion site on the right wrist. He states that he underwent stent placement. We are attempting to get those records. Past Medical History HEENT History: Reports: None Cardiovascular History: Reports: Angina, Hypertension, [place], Stents Respiratory History: Reports: None Gastrointestinal History: Reports: Gastritis, GI Bleed, Other (See Below) (Esophageal varices) Other Gastrointestinal History: Pancreatitis. Genitourinary History: Reports: None Musculoskeletal History: Reports: None Neurological History: Reports: Headaches, Chronic Psychiatric History: Reports: Addiction, Depression Endocrine/Metabolic History: Reports: Diabetes, Type II (On oral hypoglycemics), Other (See Below) (Diabetic ketoacidosis) Hematologic History: Reports: None Immunologic History: Reports: None Oncologic (Cancer) History: Reports: None Dermatologic History: Reports: None - Infectious Disease History Infectious Disease History: Reports: Chicken Pox, Measles, Mumps - Past Surgical History Head Surgeries/Procedures: Reports: None Social & Family History - Family History Family Medical History: No Pertinent Family History Other Psychiatric Family History: 2 family members recently due to drug use. - Tobacco Use Tobacco Use Status *Q: Never Tobacco User Second Hand Smoke Exposure: No - Caffeine Use Caffeine Use: Reports: None - Alcohol Use Alcohol Use Comment: Patient has been drinking both beer and wine as much as he can for the past 2 weeks. Prior heavy history of alcohol. - Recreational Drug Use Recreational Drug Use: No - Living Situation & Occupation Living situation: Reports: with Family Occupation: Unemployed H&P Review of Systems - Review of Systems: Review Of Systems: Comprehensive ROS is negative, except as noted in HPI. - Vital Signs Vital Signs: Last Vital Signs Temp 98.1 F 11/01/20 15:03 Pulse 103 H 11/01/20 15:03 Resp 25 H 11/01/20 15:03 BP 153/88 H 11/01/20 15:03 Pulse Ox 98 11/01/20 15:03 Weight: 206 lb 14.4 oz - Exam General: Alert, Cooperative HEENT: EOMI. No: Conjunctiva Clear (Injected) Neck: Supple, Trachea Midline Lungs: Clear to Auscultation, Normal Respiratory Effort Cardiovascular: Regular Rate, Regular Rhythm, Normal S1, Normal S2 GI/Abdominal Exam: Normal Bowel Sounds, Soft, Non-Tender Extremities: Normal Inspection, No Pedal Edema Skin: Warm, Dry, Intact, Other (Multiple tattoos throughout. 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 - Discharge Plan *PRESCRIPTION DRUG MONITORING PROGRAM REVIEWED*: Yes *COPY OF PRESCRIPTION DRUG MONITORING REPORT IN PATIENT ALYSSA: Yes Prescriptions/Med Rec: LORazepam [Ativan] 1 mg PO Q6H PRN #10 tablet PRN Reason: Anxiety carvediloL [Coreg] 3.125 mg PO BID #60 tablet Clopidogrel [Plavix] 75 mg PO DAILY #30 tablet lisinopriL [Prinivil] 5 mg PO DAILY #30 tablet Sertraline [Zoloft] 25 mg PO BEDTIME #30 tablet Home Medications: Home Meds metFORMIN [Glucophage] 500 mg PO DAILY 01/24/19 [History] Acetaminophen [Tylenol] 650 mg PO Q6H PRN tablet 02/05/19 [Rx] atorvaSTATin [Lipitor] 20 mg PO BEDTIME 11/02/20 [History] lisinopriL [Lisinopril] 5 mg PO DAILY 11/02/20 [History] Aspirin [Aspirin EC] 81 mg PO DAILY 11/04/20 [History] Clopidogrel [Plavix] 75 mg PO DAILY #30 tablet 11/04/20 [Rx] DULoxetine HCl [Cymbalta] 60 mg PO BEDTIME 11/04/20 [History] LORazepam [Ativan] 1 mg PO Q6H PRN #10 tablet 11/04/20 [Rx] Prazosin HCl [Prazosin] 1 mg PO BEDTIME 11/04/20 [History] Sertraline [Zoloft] 25 mg PO BEDTIME #30 tablet 11/04/20 [Rx] buPROPion HCL [Wellbutrin Xl] 150 mg PO DAILY 11/04/20 [History] carvediloL [Coreg] 3.125 mg PO BID #60 tablet 11/04/20 [Rx] lisinopriL [Prinivil] 5 mg PO DAILY #30 tablet 11/04/20 [Rx] traZODone HCl [Trazodone HCl] 100 mg PO BEDTIME 11/04/20 [History] Forms: ED Department Discharge Referrals: Preethi Barragna NP [Ordering Only Provider] - - Discharge Summary/Plan Comment DC Time >30 min.: Yes - General Info Date of Service: 11/04/20 Admission Dx/Problem (Free Text: Admission Diagnosis/Problem Admission Diagnosis/Problem Intoxication Subjective Update: No acute complaints. No hallucinations. No feelings of anxiety or tremor. - Patient Data Vitals - Most Recent: Last Vital Signs Temp 97.6 F 11/04/20 11:57 Pulse 94 11/04/20 11:57 Resp 18 11/04/20 11:57 BP 127/89 11/04/20 11:57 Pulse Ox 96 11/04/20 11:57 Weight - Most Recent: 207 lb 12.8 oz I&O - Last 24 hours: Intake & Output 11/04/20 11/04/20 11/04/20 06:59 14:59 22:59 Intake Total 200 1025 Balance 200 1025 Lab Results - Last 24 hrs: Laboratory Results - last 24 hr 11/03/20 11/03/20 11/04/20 Range/Units 17:07 20:55 06:05 WBC 4.1 L (5.0-10.0) 10^3/uL RBC 4.38 L (4.6-6.2) 10^6/uL Hgb 13.6 L (14.0-18.0) g/dL Hct 39.7 L (40.0-54.0) % MCV 90.6 (80-100) fL MCH 31.1 (27.0-34.0) pg MCHC 34.3 (33.0-35.0) g/dL Plt Count 85 L (150-450) 10^3/uL Neut % (Auto) 65.5 (42.2-75.2) % Lymph % (Auto) 22.4 (20.5-50.1) % Hubbard % (Auto) 9.2 H (2-8) % Eos % (Auto) 2.4 (1.0-3.0) % Baso % (Auto) 0.5 (0.0-1.0) % Sodium (136-145) mmol/L Potassium (3.5-5.1) mmol/L Chloride (98-107) mmol/L Carbon Dioxide (21-32) mmol/L Anion Gap (7-13) mEq/L BUN (7-18) mg/dL Creatinine (0.70-1.30) mg/dL Est Cr Clr Drug Dosing mL/min Estimated GFR (MDRD) BUN/Creatinine Ratio (No establ ref range) Glucose (70-99) mg/dL POC Glucose 219 H 226 H (70-99) mg/dL Calcium (8.5-10.1) mg/dL Magnesium (1.8-2.4) mg/dL Total Bilirubin (0.2-1.0) mg/dL AST (15-37) U/L ALT (16-63) U/L Alkaline Phosphatase (46-116) U/L Total Protein (6.4-8.2) g/dL Albumin (3.4-5.0) g/dL Globulin Albumin/Globulin Ratio 11/04/20 11/04/20 11/04/20 Range/Units 06:05 06:48 11:23 WBC (5.0-10.0) 10^3/uL RBC (4.6-6.2) 10^6/uL Hgb (14.0-18.0) g/dL Hct (40.0-54.0) % MCV (80-100) fL MCH (27.0-34.0) pg MCHC (33.0-35.0) g/dL Plt Count (150-450) 10^3/uL Neut % (Auto) (42.2-75.2) % Lymph % (Auto) (20.5-50.1) % Hubbard % (Auto) (2-8) % Eos % (Auto) (1.0-3.0) % Baso % (Auto) (0.0-1.0) % Sodium 137 (136-145) mmol/L Potassium 3.1 L (3.5-5.1) mmol/L Chloride 101 (98-107) mmol/L Carbon Dioxide 27 (21-32) mmol/L Anion Gap 12.1 (7-13) mEq/L BUN 3 L (7-18) mg/dL Creatinine 0.57 L (0.70-1.30) mg/dL Est Cr Clr Drug Dosing 147.64 mL/min Estimated GFR (MDRD) > 60 BUN/Creatinine Ratio 5.3 (No establ ref range) Glucose 183 H (70-99) mg/dL POC Glucose 182 H 219 H (70-99) mg/dL Calcium 7.4 L (8.5-10.1) mg/dL Magnesium 1.6 L (1.8-2.4) mg/dL Total Bilirubin 1.4 H (0.2-1.0) mg/dL AST 44 H (15-37) U/L ALT 62 (16-63) U/L Alkaline Phosphatase 71 (46-116) U/L Total Protein 5.4 L (6.4-8.2) g/dL Albumin 2.7 L (3.4-5.0) g/dL Globulin 2.7 Albumin/Globulin Ratio 1.00 Med Orders - Current: Current Medications Artificial Tears (Carboxymethylcellulose Sodium 1% Ophth Gel 0.4 Ml Ud) 0 each EYEBOTH Q1H PRN PRN Reason: Itching Aspirin (Aspirin 81 Mg Tab.Chew) 81 mg PO WITHBREAKFAST [facility] Last Admin: 11/04/20 08:30 Dose: 81 mg Documented by: Atorvastatin Calcium (Atorvastatin 20 Mg Tab) 20 mg PO BEDTIME [facility] Carvedilol (Carvedilol 3.125 Mg Tab) 3.125 mg PO BID [facility] Last Admin: 11/04/20 08:32 Dose: 3.125 mg Documented by: Clopidogrel Bisulfate (Clopidogrel 75 Mg Tab) 75 mg PO DAILY [facility] Last Admin: 11/04/20 08:32 Dose: 75 mg Documented by: Dextrose/Water (50% Dextrose In Water 50 Ml Syringe) 50 ml IV Q15M PRN PRN Reason: Hypoglycemia Docusate Sodium (Docusate Sodium 100 Mg Cap) 100 mg PO BID PRN PRN Reason: Constipation Enoxaparin Sodium (Enoxaparin 40 Mg/0.4 Ml Syringe) 40 mg SUBCUT DAILY [facility] Last Admin: 11/04/20 08:36 Dose: 40 mg Documented by: Glucagon (Glucagon,Human Recombinant 1 Mg Vial) 1 mg IM Q15M PRN PRN Reason: Hypoglycemia Insulin Human Lispro (Insulin Lispro 100 Units/Ml 3 Ml Vial) 0 unit SUBCUT WITHMEALSANDBED [facility]; Protocol Last Admin: 11/04/20 12:23 Dose: 4 units Documented by: Lisinopril (Lisinopril 5 Mg Tab) 5 mg PO DAILY [facility] Last Admin: 11/04/20 08:31 Dose: 5 mg Documented by: Lorazepam (Lorazepam 2 Mg/Ml Sdv) 0 mg IV TITRATE PRN; Protocol PRN Reason: alcohol withdrawal Last Admin: 11/03/20 04:54 Dose: 3 mg Documented by: Lorazepam (Lorazepam 1 Mg Tab) 0 mg PO TITRATE PRN; Protocol PRN Reason: alcohol withdrawal Last Admin: 11/04/20 12:39 Dose: 1 mg Documented by: Metoprolol Tartrate (Metoprolol Tartrate 25 Mg Tab) 25 mg PO Q6H PRN PRN Reason: See Label Comment Multivitamins (Multivitamins,Therapeutic Tab) 1 each PO DAILY [facility] Last Admin: 11/04/20 08:32 Dose: 1 each Documented by: Non-Formulary Medication (Dextrose [Glucose]) 4 tab PO ASDIRECTED PRN PRN Reason: Hypoglycemia Non-Formulary Medication (Prazosin Hcl [Prazosin]) 1 mg PO BEDTIME [facility] Ondansetron HCl (Ondansetron 4 Mg/2 Ml Sdv) 4 mg IVPUSH Q4H PRN PRN Reason: Nausea/Vomiting Last Admin: 11/02/20 15:58 Dose: 4 mg Documented by: Pantoprazole Sodium (Pantoprazole 40 Mg Vial) 40 mg IVPUSH Q12HR [facility] Last Admin: 11/04/20 09:39 Dose: 40 mg Documented by: Sertraline HCl (Sertraline 50 Mg Tab) 25 mg PO BEDTIME [facility] Last Admin: 11/03/20 22:04 Dose: 25 mg Documented by: Sodium Chloride (Sodium Chloride 0.9% 10 Ml Syringe) 10 ml FLUSH ASDIRECTED PRN PRN Reason: Keep Vein Open Last Admin: 11/04/20 09:39 Dose: 10 ml Documented by: Thiamine HCl (Thiamine 100 Mg Tab) 100 mg PO DAILY [facility] Last Admin: 11/04/20 08:31 Dose: 100 mg Documented by: Tramadol HCl (Tramadol 50 Mg Tab) 50 mg PO Q4H PRN PRN Reason: Pain Last Admin: 11/04/20 08:33 Dose: 50 mg Documented by: Discontinued Medications Clopidogrel Bisulfate (Clopidogrel 75 Mg Tab) 75 mg PO DAILY [facility] Famotidine (Famotidine 20 Mg/2 Ml Sdv) 20 mg IVPUSH ONETIME ONE Stop: 11/01/20 16:00 Last Admin: 11/01/20 16:17 Dose: 20 mg Documented by: Folic Acid (Folic Acid 1 Mg Tab) 1 mg PO DAILY [facility] Stop: 11/04/20 09:01 Last Admin: 11/04/20 08:31 Dose: 1 mg Documented by: Multivitamins/Minerals 10 ml/Thiamine HCl 100 mg/ Folic Acid 1 mg/ Lactated Ringer's 1,011.2 mls @ 999 mls/hr IV .BOLUS ONE Stop: 11/01/20 16:59 Last Admin: 11/01/20 16:20 Dose: 999 mls/hr Documented by: Lactated Ringer's (Ringers, Lactated) 1,000 mls @ 200 mls/hr IV ASDIRECTED [facility] Last Admin: 11/03/20 13:08 Dose: 200 mls/hr Documented by: Magnesium Sulfate (Magnesium Sulfate In Water 2 Gm/50 Ml) 2 gm in 50 mls @ 25 mls/hr IV ONETIME ONE Stop: 11/02/20 08:54 Last Infusion: 11/02/20 10:14 Dose: Infused Documented by: Potassium Chloride 20 meq/ (Premix) 100 mls @ 50 mls/hr IV ONETIME ONE Stop: 11/03/20 09:01 Last Infusion: 11/03/20 10:02 Dose: Infused Documented by: Potassium Chloride 20 meq/ (Premix) 100 mls @ 50 mls/hr IV ONETIME ONE Stop: 11/03/20 11:59 Last Admin: 11/03/20 10:04 Dose: 50 mls/hr Documented by: Magnesium Sulfate (Magnesium Sulfate In Water 2 Gm/50 Ml) 2 gm in 50 mls @ 25 mls/hr IV ONETIME ONE Stop: 11/04/20 10:59 Last Admin: 11/04/20 09:40 Dose: 25 mls/hr Documented by: Lorazepam (Lorazepam 2 Mg/Ml Sdv) 2 mg IVPUSH Q2HR [facility] Last Admin: 11/01/20 17:42 Dose: 2 mg Documented by: Lorazepam (Lorazepam 2 Mg/Ml Sdv) 2 mg IVPUSH Q4H [facility] Ondansetron HCl (Ondansetron 4 Mg/2 Ml Sdv) 4 mg IV ONETIME ONE Stop: 11/01/20 16:00 Last Admin: 05/02/21 16:14 Dose: 4 mg Documented by: Potassium Chloride (Potassium Chloride 10 Meq Tab.Er) 40 meq PO ONETIME ONE Stop: 11/04/20 09:01 Last Admin: 11/04/20 09:38 Dose: 40 meq Documented by: - Exam General: Reports: Alert, Oriented, Cooperative, No Acute Distress HEENT: Reports: Pupils Equal Lungs: Reports: Clear to Auscultation, Normal Respiratory Effort Cardiovascular: Reports: Regular Rate, Regular Rhythm GI/Abdominal Exam: Normal Bowel Sounds, Soft, Non-Tender, No Distention Extremities: Normal Inspection, No Pedal Edema Skin: Reports: Warm
[2020-11-04] MEDS ORDERED: Carvedilol 3.125 MG Tab PO SCH (18:00)
[2020-11-04] MEDS ORDERED: LORazepam 1 MG Tab ONE (18:13)
[2020-11-04] MEDS ORDERED: LORazepam 1 MG Tab PO ONE (18:29)
[2020-11-04] MEDS ORDERED: atorvaSTATin 20 MG Tab PO SCH (21:00)
[2020-11-04] MEDS ORDERED: Non-Formulary Medication 1 Each (Prazosin Hcl [Prazosin] 1 MG Capsule) PO SCH (21:00)
[2020-11-04] MEDS ORDERED: Non-Formulary Medication 1 Each (Sertraline [Zoloft] 25 MG Tablet) PO SCH (21:00)
[2020-11-05] MEDS ORDERED: Lisinopril 5 MG Tab PO SCH (09:00)
[2020-11-05] MEDS ORDERED: Clopidogrel 75 MG Tab PO SCH (09:00)
== END 2020-11-04 18:30 | disposition home or self-care (01) | DRG 897 ==
LOC: DL.ED 14:51 → DL.MS 17:01
PROVIDERS: ADMIT Hospitalist; ATTEND Hospitalist
DX: F10.239 Alcohol dependence with withdrawal, unspecified (principal); E11.9 Type 2 diabetes mellitus without complications; R74.01 Elevation of levels of liver transaminase levels; G47.30 Sleep apnea, unspecified; E87.6 Hypokalemia; Y90.8 Blood alcohol level of 240 mg/100 ml or more; I10 Essential (primary) hypertension; F32.9 Major depressive disorder, single episode, unspecified; Z95.5 Presence of coronary angioplasty implant and graft; I25.2 Old myocardial infarction; Z79.84 Long term (current) use of oral hypoglycemic drugs; Z79.82 Long term (current) use of aspirin; Z79.899 Other long term (current) drug therapy; Z79.02 Long term (current) use of antithrombotics/antiplatelets
CPT/HCPCS: 36415; 71045; 80053; 80305-QW; 80307; 81001; 82150; 82947; 83690; 83735; 83880; 84484; 85025; 85610; 85730; 93005; 94660; 96365; 96375; 99284; 99285-25; A9270-GY; C9113; J1650; J1815-GY; J2060; J2405; J3411; J3475; J3480; J3490; J7120

== ENCOUNTER 2020-11-10 02:22 | Inpatient (IN) | payer MEDICAID ==
[2020-11-10] MEDS ORDERED: Ondansetron 4 MG/2 ML SDV IVPUSH ONE (02:41)
--- NOTE | 2020-11-10 03:02 | EDM.PDOC ---
ED HPI GENERAL MEDICAL PROBLEM - General Chief Complaint: Chest Pain Stated Complaint: AMBULANCE Time Seen by Provider: 11/10/20 02:30 Source of Information: Reports: Patient, EMS, RN History Limitations: Reports: No Limitations - History of Present Illness INITIAL COMMENTS - FREE TEXT/NARRATIVE: ED with c/o of chest pain rates 10/10 describes as sharp constant across chest. Reports neuropathy left leg and "limps on right, tonight fell going down stairs, fell approximately 12 stairs Pain to right hip and shoulder. Recent cardiac stents x 2 in [place]. Has not been taking plavix or other meds for past 4 days. 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 Recent loss of 3 family members. past few days feeling suicidal Tonight plan to "cut his wrists with razor blade but got scared". Couple beers tonight to help with pain. Rare ETOH use. Denies other drugs. No tobacco use. Bilateral Chest Pain Score (Numeric/FACES): 10 - Related Data Allergies Allergy/AdvReac Type Severity Reaction Status Date / Time No Known Allergies Allergy Verified 11/10/20 02:31 Home Meds: Home Meds metFORMIN [Glucophage] 500 mg PO DAILY 01/24/19 [History] Acetaminophen [Tylenol] 650 mg PO Q6H PRN tablet 02/05/19 [Rx] atorvaSTATin [Lipitor] 20 mg PO BEDTIME 11/02/20 [History] lisinopriL [Lisinopril] 5 mg PO DAILY 11/02/20 [History] Aspirin [Aspirin EC] 81 mg PO DAILY 11/04/20 [History] Clopidogrel [Plavix] 75 mg PO DAILY #30 tablet 11/04/20 [Rx] DULoxetine HCl [Cymbalta] 60 mg PO BEDTIME 11/04/20 [History] LORazepam [Ativan] 1 mg PO Q6H PRN #10 tablet 11/04/20 [Rx] Prazosin HCl [Prazosin] 1 mg PO BEDTIME 11/04/20 [History] Sertraline [Zoloft] 25 mg PO BEDTIME #30 tablet 11/04/20 [Rx] buPROPion HCL [Wellbutrin Xl] 150 mg PO DAILY 11/04/20 [History] carvediloL [Coreg] 3.125 mg PO BID #60 tablet 11/04/20 [Rx] lisinopriL [Prinivil] 5 mg PO DAILY #30 tablet 11/04/20 [Rx] traZODone HCl [Trazodone HCl] 100 mg PO BEDTIME 11/04/20 [History] Past Medical History HEENT History: Reports: None Cardiovascular History: Reports: Angina, Hypertension, VT, Stents Respiratory History: Reports: None Gastrointestinal History: Reports: Gastritis, GI Bleed, Other (See Below) Other Gastrointestinal History: Pancreatitis. Genitourinary History: Reports: None Musculoskeletal History: Reports: None Neurological History: Reports: Headaches, Chronic Psychiatric History: Reports: Addiction, Depression Endocrine/Metabolic History: Reports: Diabetes, Type II, Other (See Below) Hematologic History: Reports: None Immunologic History: Reports: None Oncologic (Cancer) History: Reports: None Dermatologic History: Reports: None - Infectious Disease History Infectious Disease History: Reports: Chicken Pox, Measles, Mumps - Past Surgical History Head Surgeries/Procedures: Reports: None Social & Family History - Family History Family Medical History: No Pertinent Family History Other Psychiatric Family History: 2 family members recently due to drug use. - Tobacco Use Tobacco Use Status *Q: Never Tobacco User Second Hand Smoke Exposure: No - Caffeine Use Caffeine Use: Reports: None - Recreational Drug Use Recreational Drug Use: No - Living Situation & Occupation Living situation: Reports: with Family Occupation: Unemployed ED ROS GENERAL - Review of Systems Review Of Systems: Comprehensive ROS is negative, except as noted in HPI. ED EXAM, GENERAL - Physical Exam Exam: See Below Exam Limited By: No Limitations General Appearance: Alert, Mild Distress Ears: Normal External Exam, Hearing Grossly Normal Nose: Nasal Deformity Throat/Mouth: Normal Inspection Head: Normocephalic Neck: Normal Inspection Respiratory/Chest: No Respiratory Distress, Lungs Clear, Normal Breath Sounds, Other (general chest wall tenderness). No: Chest Non-Tender Cardiovascular: Normal Peripheral Pulses, Regular Rate, Rhythm, Tachycardia GI/Abdominal: Normal Bowel Sounds, Soft Back Exam: Normal Inspection Extremities: Normal Inspection, Other (right hip pain with palpation, right shoulder pain) Neurological: Alert, Oriented, Normal Cognition Psychiatric: Depressed Mood, Tearful Skin Exam: Warm, Dry, Ecchymosis (right upper eye lid.) #1 Interpretation EKG Date: 11/10/20 Time: 02:52 Rhythm: Other (sinus tach) P-Wave: Present QRS: Wide ST-T: Normal Comparison: No Change Course - Vital Signs Last Recorded V/S: Last Vital Signs Temp 99.2 F 11/10/20 02:22 Pulse 124 H 11/10/20 02:22 Resp 22 H 11/10/20 02:22 BP 142/95 H 11/10/20 02:22 Pulse Ox 100 11/10/20 02:22 - Orders/Labs/Meds Orders: Active Orders 24 hr Category Date Time Status EKG Documentation Completion [RC] URGENT Care 11/10/20 02:38 Active Labs: Laboratory Tests 11/10/20 11/10/20 11/10/20 Range/Units 02:45 02:47 02:47 WBC 6.3 (5.0-10.0) 10^3/uL RBC 4.87 (4.6-6.2) 10^6/uL Hgb 15.1 D (14.0-18.0) g/dL Hct 43.2 (40.0-54.0) % MCV 88.7 (80-100) fL MCH 31.0 (27.0-34.0) pg MCHC 35.0 (33.0-35.0) g/dL Plt Count 193 D (150-450) 10^3/uL Neut % (Auto) 61.7 (42.2-75.2) % Lymph % (Auto) 25.0 (20.5-50.1) % Webb % (Auto) 12.9 H (2-8) % Eos % (Auto) 0.2 L (1.0-3.0) % Baso % (Auto) 0.2 (0.0-1.0) % PT (9.0-12.0) SEC INR (0.9-1.2) D-Dimer, Quantitative (0-400) ng/mL Sodium 136 (136-145) mmol/L Potassium 3.5 (3.5-5.1) mmol/L Chloride 93 L (98-107) mmol/L Carbon Dioxide 24 (21-32) mmol/L Anion Gap 22.5 H (7-13) mEq/L BUN 3 L (7-18) mg/dL Creatinine 0.87 (0.70-1.30) mg/dL Est Cr Clr Drug Dosing 96.73 mL/min Estimated GFR (MDRD) > 60 BUN/Creatinine Ratio 3.4 (No establ ref range) Glucose 346 H (70-99) mg/dL Calcium 8.2 L (8.5-10.1) mg/dL Magnesium 1.7 L (1.8-2.4) mg/dL Total Bilirubin 1.2 H (0.2-1.0) mg/dL AST 78 H (15-37) U/L ALT 108 H (16-63) U/L Alkaline Phosphatase 152 H (46-116) U/L Troponin I < 0.017 (0.000-0.056) ng/mL C-Reactive Protein 3.7 H (0.0-0.9) mg/dL Total Protein 7.4 (6.4-8.2) g/dL Albumin 3.0 L (3.4-5.0) g/dL Globulin 4.4 Albumin/Globulin Ratio 0.68 Amylase 38 (25-115) U/L Lipase 66 L (73-393) U/L Urine Color (YELLOW) Urine Appearance (CLEAR) Urine pH (5.0-9.0) Ur Specific [place] (1.005-1.030) Urine Protein (NEGATIVE) Urine Glucose (UA) (NEGATIVE) Urine Ketones (NEGATIVE) Urine Occult Blood (NEGATIVE) Urine Nitrite (NEGATIVE) Urine Bilirubin (NEGATIVE) Urine Urobilinogen (0.2-1.0) mg/dL Ur Leukocyte Esterase (NEGATIVE) Urine RBC /HPF Urine WBC (0-5/HPF) /HPF Ur Epithelial Cells (NOT SEEN) /HPF Amorphous Sediment (NOT SEEN) /HPF Urine Bacteria (0-FEW/HPF) /HPF Urine Mucus (NOT SEEN) /LPF Urine Opiates Screen (NEGATIVE) Ur Oxycodone Screen (NEGATIVE) Urine Methadone Screen (NEGATIVE) Ur Barbiturates Screen (NEGATIVE) U Tricyclic Antidepress (NEGATIVE) Ur Phencyclidine Scrn (NEGATIVE) Ur Amphetamine Screen (NEGATIVE) U Methamphetamines Scrn (NEGATIVE) Urine MDMA Screen (NEGATIVE) U Benzodiazepines Scrn (NEGATIVE) Urine Cocaine Screen (NEGATIVE) U Marijuana (THC) Screen (NEGATIVE) Ethyl Alcohol 265 (0) mg/dL SARS-CoV-2 RNA (BELINDA) Negative (NEGATIVE) 11/10/20 11/10/20 11/10/20 Range/Units 02:47 02:47 05:01 WBC (5.0-10.0) 10^3/uL RBC (4.6-6.2) 10^6/uL Hgb (14.0-18.0) g/dL Hct (40.0-54.0) % MCV (80-100) fL MCH (27.0-34.0) pg MCHC (33.0-35.0) g/dL Plt Count (150-450) 10^3/uL Neut % (Auto) (42.2-75.2) % Lymph % (Auto) (20.5-50.1) % Webb % (Auto) (2-8) % Eos % (Auto) (1.0-3.0) % Baso % (Auto) (0.0-1.0) % PT 9.9 (9.0-12.0) SEC INR 1.0 (0.9-1.2) D-Dimer, Quantitative 886 H (0-400) ng/mL Sodium (136-145) mmol/L Potassium (3.5-5.1) mmol/L Chloride (98-107) mmol/L Carbon Dioxide (21-32) mmol/L Anion Gap (7-13) mEq/L BUN (7-18) mg/dL Creatinine (0.70-1.30) mg/dL Est Cr Clr Drug Dosing mL/min Estimated GFR (MDRD) BUN/Creatinine Ratio (No establ ref range) Glucose (70-99) mg/dL Calcium (8.5-10.1) mg/dL Magnesium (1.8-2.4) mg/dL Total Bilirubin (0.2-1.0) mg/dL AST (15-37) U/L ALT (16-63) U/L Alkaline Phosphatase (46-116) U/L Troponin I (0.000-0.056) ng/mL C-Reactive Protein (0.0-0.9) mg/dL Total Protein (6.4-8.2) g/dL Albumin (3.4-5.0) g/dL Globulin Albumin/Globulin Ratio Amylase (25-115) U/L Lipase (73-393) U/L Urine Color Yellow (YELLOW) Urine Appearance Slightly cloudy (CLEAR) Urine pH 7.0 (5.0-9.0) Ur Specific [place] 1.015 (1.005-1.030) Urine Protein 100 H (NEGATIVE) Urine Glucose (UA) 500 H (NEGATIVE) Urine Ketones 15 H (NEGATIVE) Urine Occult Blood Trace-intact H (NEGATIVE) Urine Nitrite Negative (NEGATIVE) Urine Bilirubin Negative (NEGATIVE) Urine Urobilinogen 1.0 (0.2-1.0) mg/dL Ur Leukocyte Esterase Negative (NEGATIVE) Urine RBC 20-30 H /HPF Urine WBC 0-5 (0-5/HPF) /HPF Ur Epithelial Cells Few (NOT SEEN) /HPF Amorphous Sediment Few (NOT SEEN) /HPF Urine Bacteria Few (0-FEW/HPF) /HPF Urine Mucus Few H (NOT SEEN) /LPF Urine Opiates Screen (NEGATIVE) Ur Oxycodone Screen (NEGATIVE) Urine Methadone Screen (NEGATIVE) Ur Barbiturates Screen (NEGATIVE) U Tricyclic Antidepress (NEGATIVE) Ur Phencyclidine Scrn (NEGATIVE) Ur Amphetamine Screen (NEGATIVE) U Methamphetamines Scrn (NEGATIVE) Urine MDMA Screen (NEGATIVE) U Benzodiazepines Scrn (NEGATIVE) Urine Cocaine Screen (NEGATIVE) U Marijuana (THC) Screen (NEGATIVE) Ethyl Alcohol (0) mg/dL SARS-CoV-2 RNA (BELINDA) (NEGATIVE) 11/10/20 Range/Units 05:01 WBC (5.0-10.0) 10^3/uL RBC (4.6-6.2) 10^6/uL Hgb (14.0-18.0) g/dL Hct (40.0-54.0) % MCV (80-100) fL MCH (27.0-34.0) pg MCHC (33.0-35.0) g/dL Plt Count (150-450) 10^3/uL Neut % (Auto) (42.2-75.2) % Lymph % (Auto) (20.5-50.1) % Webb % (Auto) (2-8) % Eos % (Auto) (1.0-3.0) % Baso % (Auto) (0.0-1.0) % PT (9.0-12.0) SEC INR (0.9-1.2) D-Dimer, Quantitative (0-400) ng/mL Sodium (136-145) mmol/L Potassium (3.5-5.1) mmol/L Chloride (98-107) mmol/L Carbon Dioxide (21-32) mmol/L Anion Gap (7-13) mEq/L BUN (7-18) mg/dL Creatinine (0.70-1.30) mg/dL Est Cr Clr Drug Dosing mL/min Estimated GFR (MDRD) BUN/Creatinine Ratio (No establ ref range) Glucose (70-99) mg/dL Calcium (8.5-10.1) mg/dL Magnesium (1.8-2.4) mg/dL Total Bilirubin (0.2-1.0) mg/dL AST (15-37) U/L ALT (16-63) U/L Alkaline Phosphatase (46-116) U/L Troponin I (0.000-0.056) ng/mL C-Reactive Protein (0.0-0.9) mg/dL Total Protein (6.4-8.2) g/dL Albumin (3.4-5.0) g/dL Globulin Albumin/Globulin Ratio Amylase (25-115) U/L Lipase (73-393) U/L Urine Color (YELLOW) Urine Appearance (CLEAR) Urine pH (5.0-9.0) Ur Specific [place] (1.005-1.030) Urine Protein (NEGATIVE) Urine Glucose (UA) (NEGATIVE) Urine Ketones (NEGATIVE) Urine Occult Blood (NEGATIVE) Urine Nitrite (NEGATIVE) Urine Bilirubin (NEGATIVE) Urine Urobilinogen (0.2-1.0) mg/dL Ur Leukocyte Esterase (NEGATIVE) Urine RBC /HPF Urine WBC (0-5/HPF) /HPF Ur Epithelial Cells (NOT SEEN) /HPF Amorphous Sediment (NOT SEEN) /HPF Urine Bacteria (0-FEW/HPF) /HPF Urine Mucus (NOT SEEN) /LPF Urine Opiates Screen Negative (NEGATIVE) Ur Oxycodone Screen Negative (NEGATIVE) Urine Methadone Screen Negative (NEGATIVE) Ur Barbiturates Screen Negative (NEGATIVE) U Tricyclic Antidepress Negative (NEGATIVE) Ur Phencyclidine Scrn Negative (NEGATIVE) Ur Amphetamine Screen Negative (NEGATIVE) U Methamphetamines Scrn Negative (NEGATIVE) Urine MDMA Screen Negative (NEGATIVE) U Benzodiazepines Scrn Negative (NEGATIVE) Urine Cocaine Screen Negative (NEGATIVE) U Marijuana (THC) Screen Negative (NEGATIVE) Ethyl Alcohol (0) mg/dL SARS-CoV-2 RNA (BELINDA) (NEGATIVE) Meds: Medications Discontinued Medications Generic Name Dose Route Start Last Admin Trade Name Luisana PRN Reason Stop Dose Admin Famotidine 20 mg 11/10/20 03:52 11/10/20 04:09 Famotidine 20 Mg/2 Ml Sdv IVPUSH 11/10/20 03:53 20 mg ONETIME ONE Administration Multivitamins/Minerals 10 ml/ 1,011.2 mls @ 999 mls/hr 11/10/20 03:54 11/10/20 04:13 Folic Acid 1 mg/ Thiamine HCl IV 11/10/20 04:54 999 mls/hr 100 mg/ Lactated Ringer's ONETIME ONE Administration Iopamidol 100 ml 11/10/20 04:30 11/10/20 05:17 Iopamidol 755 Mg/Ml 100 Ml Bottle IVPUSH 11/10/20 04:31 75 ml ONETIME ONE Administration Lorazepam 1 mg 11/10/20 04:17 11/10/20 04:27 Lorazepam 2 Mg/Ml Sdv IVPUSH 11/10/20 04:18 1 mg ONETIME ONE Administration Metoclopramide HCl 10 mg 11/10/20 03:52 11/10/20 04:04 Metoclopramide 10 Mg/2 Ml Sdv IVPUSH 11/10/20 03:53 10 mg ONETIME ONE Administration Ondansetron HCl 4 mg 11/10/20 02:41 11/10/20 02:49 Ondansetron 4 Mg/2 Ml Sdv IVPUSH 11/10/20 02:42 4 mg ONETIME ONE Administration - Re-Assessments/Exams Free Text/Narrative Re-Assessment/Exam: 11/10/20 04:31 Repotrting ETOH withdrawal, visual hallucinations, admits seeing things past couple days, Tremors present, Reports seeing "man in corner of room and furry thing running around". Remains cooperative pleasant. Departure - Departure Time of Disposition: 06:04 Disposition: Admitted As Inpatient 64 Condition: Good Clinical Impression: Fall (on) (from) other stairs and steps, initial encounter, Right hip pain, Non compliance w medication regimen, Alcohol withdrawal delirium, Suicidal ideations, Grief, Neuropathy Chest pain Qualifiers: Chest pain type: intercostal pain Qualified Code(s): R07.82 - Intercostal pain Depression Qualifiers: Depression Type: reactive depression Qualified Code(s): F32.9 - Major depressive disorder, single episode, unspecified CAD (coronary artery disease) Qualifiers: Coronary Disease-Associated Artery/Lesion type: unspecified vessel or lesion type [place] vs. transplanted heart: [place] heart Associated angina: unspecified whether angina present Qualified Code(s): I25.10 - Atherosclerotic heart disease of [place] coronary artery without angina pectoris Forms: ED Department Discharge Sepsis Event Note (ED) - Evaluation Sepsis Screening Result: No Definite Risk - Focused Exam Vital Signs: Vital Signs Temp Pulse Resp BP Pulse Ox 11/10/20 02:22 99.2 F 124 H 22 H 142/95 H 100 - My Orders Last 24 Hours: My Active Orders 11/10/20 02:38 EKG Documentation Completion [RC] URGENT - Assessment/Plan Last 24 Hours: My Active Orders 11/10/20 02:38 EKG Documentation Completion [RC] URGENT CIWAA - CIWAA CIWAA Nausea And Vomitin CIWAA Tremor: 5 CIWAA Paroxysmal Sweats: 4 - Beads of Sweat Obvious on Forehead CIWAA Anxiety: 2 CIWAA Agitation: 3 CIWAA Tactile Disturbances: 1 - Very Mild Itching, Pins and [place], Burning or Numbness CIWAA Auditory Disturbances: 0 - Not Present CIWAA Visual Disturbances: 4 - Moderately Severe Hallucinations CIWAA Headache, Fullness in Head: 0 - Not Present CIWAA Orientation And Clouding Of Sensorium: 0 - Oriented and Can do Serial Additions CIWAA Scale Score: 24
[2020-11-10] MEDS ORDERED: Famotidine 20 MG/2 ML SDV IVPUSH ONE (03:52)
[2020-11-10] MEDS ORDERED: Metoclopramide 10 MG/2 ML SDV IVPUSH ONE (03:52)
[2020-11-10] MEDS ORDERED: MVI, Adult with Vitamin K 10 ML, Folic Acid 1 MG, Thiamine 100 MG in Lactated Ringers 1... IV ONE ×4 (03:54)
[2020-11-10 04:01] LABS: ANION GAP 22.5 mEq/L (7-13); CHLORIDE,CL 93 mmol/L (98-107); SODIUM,NA 136 mmol/L (136-145)
[2020-11-10] MEDS ORDERED: LORazepam 2 MG/ML SDV IVPUSH ONE (04:17)
[2020-11-10] MEDS ORDERED: Iopamidol 755 Mg/ML 100 ML Bottle IVPUSH ONE (04:30)
--- NOTE | 2020-11-10 05:38 | CT ---
PROCEDURE INFORMATION: Exam: CT Head Without Contrast Exam date and time: 11/10/2020 4:31 AM Age: 55 years old Clinical indication: Injury or trauma; Fall; Blunt trauma (contusions or hematomas); Consciousness not specified; Additional info: Elevated d-dimer, chest pain, fall down stairs TECHNIQUE: Imaging protocol: Computed tomography of the head without contrast. Radiation optimization: All CT scans at this facility use at least one of these dose optimization techniques: automated exposure control; mA and/or kV adjustment per patient size (includes targeted exams where dose is matched to clinical indication); or iterative reconstruction. COMPARISON: CT Head wo Cont 01/27/2019 4:06 PM FINDINGS: Brain: Normal. No hemorrhage. Unremarkable white matter. No mass effect. Cerebral ventricles: No ventriculomegaly. Bones/joints: Unremarkable. No acute fracture. Paranasal sinuses: Visualized sinuses are unremarkable. No fluid levels. Mastoid air cells: Visualized mastoid air cells are well aerated. Soft tissues: Unremarkable. IMPRESSION: No acute intracranial abnormality.
--- NOTE | 2020-11-10 05:40 | CR ---
PROCEDURE INFORMATION: Exam: XR Right Shoulder Exam date and time: 11/10/2020 4:49 AM Age: 55 years old Clinical indication: Pain; Shoulder; Right; Additional info: Elevated d-dimer, chest pain, fall down stairs, right shoulder pain TECHNIQUE: Imaging protocol: XR Right shoulder. Views: 2 or more views. COMPARISON: No relevant prior studies available. FINDINGS: Bones/joints: Normal. Soft tissues: Normal. IMPRESSION: No acute findings.
--- NOTE | 2020-11-10 05:43 | CT ---
PROCEDURE INFORMATION: Exam: CT Pelvis Without Contrast; Skeletal Exam date and time: 11/10/2020 4:31 AM Age: 55 years old Clinical indication: Injury or trauma; Fall; Blunt trauma (contusions or hematomas); Bilateral; Hip; Additional info: Elevated d-dimer, chest pain, fall down stairs, right shoulder pain TECHNIQUE: Imaging protocol: Computed tomography images of the pelvis without contrast. Exam focused on the skeletal structures. Radiation optimization: All CT scans at this facility use at least one of these dose optimization techniques: automated exposure control; mA and/or kV adjustment per patient size (includes targeted exams where dose is matched to clinical indication); or iterative reconstruction. COMPARISON: CT Abdomen Pelvis w Cont 01/24/2019 10:47 PM FINDINGS: Bladder: 4 mm stone in the dependent urinary bladder. Bones/joints: Unremarkable. No acute fracture. No dislocation. Soft tissues: Right inguinal hernia containing only fat. IMPRESSION: No acute fracture or dislocation.
--- NOTE | 2020-11-10 05:45 | CT ---
PROCEDURE INFORMATION: Exam: CT Chest With Contrast; Diagnostic Exam date and time: 11/10/2020 4:31 AM Age: 55 years old Clinical indication: Injury or trauma; Fall; Blunt trauma (contusions or hematomas); Additional info: Elevated d-dimer 886, chest pain, fall down stairs, right shoulder pain TECHNIQUE: Imaging protocol: Diagnostic computed tomography of the chest with contrast. Radiation optimization: All CT scans at this facility use at least one of these dose optimization techniques: automated exposure control; mA and/or kV adjustment per patient size (includes targeted exams where dose is matched to clinical indication); or iterative reconstruction. Contrast material: ISOVUE 370; Contrast volume: 75 ml; Contrast route: INTRAVENOUS (IV); COMPARISON: CR Chest 1V Frontal 11/01/2020 3:48 PM FINDINGS: Lungs: Unremarkable. No consolidation. No masses. Pleural spaces: Unremarkable. No pneumothorax. No pleural effusion. Heart: Unremarkable. No cardiomegaly. No pericardial effusion. Aorta: Unremarkable. No aortic aneurysm. Lymph nodes: Unremarkable. No enlarged lymph nodes. Bones/joints: Unremarkable. No acute fracture. Soft tissues: Unremarkable. IMPRESSION: No acute findings.
[2020-11-10] MEDS ORDERED: Sodium Chloride 0.9% 10 ML Syringe FLUSH PRN (07:13)
[2020-11-10] MEDS ORDERED: Ondansetron 4 MG in Sodium Chloride 0.9% 50 ML IV PRN (07:14)
[2020-11-10] MEDS ORDERED: 50% Dextrose in Water 50 ML Syringe IV PRN (07:18)
[2020-11-10] MEDS ORDERED: Glucagon,Human Recombinant 1 MG Vial IM PRN (07:18)
--- NOTE | 2020-11-10 07:25 | PCM.SN.2 ---
- Free Text/Narrative Note: START OF DOCTOR EMAMIS HISTORY AND PHYSICAL / CONSULTATION NOTE Chief Complaint: "I thought I was going into DTs" History of Present Illness: The patient is a 35-year-old male who presents chief point of alcohol withdrawal. He states that last drink was at approximately 11:59 PM on 02/09/2021. He states he started developing auditory and visual hallucinations. He states that he had an onset of chest pain and had a fall as well because he felt as though his left leg had given out but also because he was intoxicated with alcohol. The patient missed onset of nausea. He denies fever, rigors, vomiting, cough, diarrhea. He admits to abdominal pain as well as myalgia of his right arm due to his fall. This is the patient's second hospitalization within the last 2 weeks for alcohol intoxication/withdrawal. Per documentation from the emergency department, the patient was exhibiting suicidal ideation. He presents for further evaluation Surgical History: Cardiac stent Family History: Cancer, stroke, diabetes, coronary artery disease, hypertension, hyperlipidemia Social History: Tobacco: Never Alcohol: Patient claims to drink 1 case of beer daily however it is likely to be much more than this Caffeine: Cola Drugs: Past marijuana use. Denies any other drug use past or present Allergies: No known drug allergies Code Status: Full Pertinent Laboratory Results / Pertinent Radiology Results / Pertinent Diagnostic Results / Pertinent Vital Signs: Blood pressure 142/95, pulse 124, respiration 22, temp 98.2 degrees, 100% room air, magnesium 1.7, alkaline phosphatase 152, AST 78, ALT 108, total bilirubin is 1.2 Physical Examination: General: -Alert and oriented x3 -No acute distress -No dyspnea -No tachypnea Head: -Atraumatic -Normocephalic Eyes: -Pupils equally round and reactive to light and accommodation -Extraocular muscles intact Neurological: -Cranial nerves II-XII intact with the exception of decreased sensorium of cranial 5 branches 1, 2, and 3 on the left compared to the right Neck: -No jugular venous distention -No thyromegaly -No cervical lymphadenopathy Heart: -iRegular rate -Regular rhythm -No murmurs -No gallops -No rubs Lungs: -No wheeze -No rhonchi -No rales Abdomen: -Normal bowel sounds in all four quadrants -No rebound -No guarding -Minimal diffuse tenderness Extremities: -2/4 pulse in all four extremities -No clubbing -No cyanosis -No edema -No calf tenderness present bilaterally -Negative Homans sign bilaterally Musculoskeletal: -5/5 bilateral upper extremity strength -5/5 bilateral lower extremity strength -Sensorium of bilateral upper extremities are equal and intact -Sensorium of bilateral lower extremities are equal and intact Additional Details / Additional Findings / Exceptions / Miscellaneous: Assessment / Plan: Alcohol withdrawal. [facility] protocol. Seizure precautions. IV normal saline 100 mL/h plus multivitamin 1 tab p.o. daily plus vitamin B12 1000 mcg p.o. daily plus thiamine 100 mg p.o. daily plus folic acid 1 mg p.o. daily. I requested case management evaluate the patient for referral for alcohol rehabilitation Chest pain. Will rule out ACS. I have a very low index of suspicion for ACS. Patient has known history of angina. Will monitor patient on telemetry and checks her cardiac enzymes and monitor the patient's symptoms Microscopic hematuria. Outpatient follow-up with urology upon discharge Hypomagnesemia. Will monitor magnesium levels intermittently and supplement as necessary Neuropathy Depression Transaminitis, chronic. Will monitor LFTs periodically with CMP. Likely sequelae of his history of alcohol abuse Medical noncompliance. Patient becomes regarding acute complaints History of pancreatitis. This likely due to his history of alcohol abuse Coronary artery disease, status post [place], status post stent Diabetes. Will check transfer glucose before every meal and at bedtime and provide insulin sliding scale History of gastritis Hyperlipidemia Hypertension Suicidal ideation. I request that psychiatry/behavioral health evaluate the patient BPH History of gastrointestinal bleed Esophageal varices Angina DVT prophylaxis. Bilateral SCD Disposition: Anticipate discharge in 72 to 96 hours however this will depend on the length of the patient's alcohol withdrawal END OF DOCTOR EMAMIS HISTORY AND PHYSICAL / CONSULTATION NOTE
[2020-11-10] MEDS: Magnesium Sulfate/D5W 1 GM/100 ML BAG IV SCH ×2 (08:19→10:33)
[2020-11-10] MEDS: Sodium Chloride 0.9% 1,000 ML IV SCH ×2 (08:19→17:22)
[2020-11-10] MEDS: Multivitamins, Therapeutic with Minerals Tab PO SCH (08:20)
[2020-11-10] MEDS: Folic Acid 1 MG Tab PO SCH (08:20)
[2020-11-10] MEDS: Cyanocobalamin (Vitamin B12) 1,000 MCG Tab PO SCH (08:21)
[2020-11-10] MEDS: LORazepam 2 MG/ML SDV IVPUSH PRN ×4 (08:23→19:33)
[2020-11-10] MEDS: Insulin Lispro 100 Units/ML 3 ML Vial SUBCUT SCH ×4 (08:24→20:57)
[2020-11-10] MEDS: Thiamine 100 MG Tab PO SCH (20:02)
[2020-11-11] MEDS: LORazepam 2 MG/ML SDV IVPUSH PRN ×6 (01:13→23:22)
[2020-11-11] MEDS: Sodium Chloride 0.9% 1,000 ML IV SCH (03:18)
[2020-11-11 07:01] LABS: ANION GAP 12.7 mEq/L (7-13); CHLORIDE,CL 99 mmol/L (98-107); SODIUM,NA 136 mmol/L (136-145)
--- NOTE | 2020-11-11 08:22 | PCM.SN.2 ---
- Free Text/Narrative Note: START OF DOCTOR BEBETO PROGRESS NOTE Subjective: The patient complains of subjective fever as well as occasional cough. Aside from this he endorses no complaints. He denies rigors, nausea, vomiting, wheeze, dyspnea. Upon further questioning he admits to mild abdominal pain. Per the nursing staff patient has required 3-4 doses of Ativan over the last 12 to 24 hours. I explained to the patient his current medical condition and plan of care and I have answered all of his questions Objective: General: -Alert -No acute distress -No dyspnea -No tachypnea Heart: -iRegular rate -Regular rhythm -No murmurs -No gallops -No rubs Lungs: -No wheeze -No rhonchi -No rales Abdomen: -Normal bowel sounds in all four quadrants -No rebound -No guarding -No tenderness Extremities: -2/4 pulse in all four extremities -No clubbing -No cyanosis -No edema Additional Details / Additional Findings / Exceptions / Miscellaneous: Pertinent Laboratory Results / Pertinent Radiology Results / Pertinent Diagnostic Results / Pertinent Vital Signs: Heart rate 108 bpm, blood pressure 120/74, total bilirubin is 1.7, AST 71, ALT 79, alkaline phosphatase 137 Assessment / Plan: Alcohol withdrawal. [facility] protocol. Seizure precautions. multivitamin 1 tab p.o. daily plus vitamin B12 1000 mcg p.o. daily plus thiamine 100 mg p.o. daily plus folic acid 1 mg p.o. daily. I requested case management evaluate the patient for referral for alcohol rehabilitation Chest pain. Resolved. ACS ruled out Microscopic hematuria. Outpatient follow-up with urology upon discharge Hypomagnesemia. Will monitor magnesium levels intermittently and supplement as necessary Neuropathy Depression. Zoloft 25 mg p.o. nightly Transaminitis, chronic. Will monitor LFTs periodically with CMP. Likely sequelae of his history of alcohol abuse Medical noncompliance. Patient becomes regarding acute complaints History of pancreatitis. This likely due to his history of alcohol abuse Coronary artery disease, status post NC, status post stent. Aspirin 81 mg p.o. daily plus Plavix and 5 mg p.o. daily plus Coreg 3.125 mg p.o. twice daily Diabetes. Will check transfer glucose before every meal and at bedtime and provide insulin sliding scale plus Metformin 500 mg p.o. daily History of gastritis Hyperlipidemia Hypertension. Coreg 3.125 mg p.o. twice daily Suicidal ideation. I request that psychiatry/behavioral health evaluate the patient BPH History of gastrointestinal bleed Esophageal varices Angina DVT prophylaxis. Bilateral SCD Disposition: The patient will be a candidate for discharge once he no longer requires IV Ativan END OF DOCTOR EMAMIS PROGRESS NOTE
[2020-11-11] MEDS: Folic Acid 1 MG Tab PO SCH (09:05)
[2020-11-11] MEDS: Cyanocobalamin (Vitamin B12) 1,000 MCG Tab PO SCH (09:05)
[2020-11-11] MEDS: Carvedilol 3.125 MG Tab PO SCH ×2 (09:05→17:38)
[2020-11-11] MEDS: metFORMIN 500 MG Tab PO SCH (09:06)
[2020-11-11] MEDS: Clopidogrel 75 MG Tab PO SCH (09:06)
[2020-11-11] MEDS: Multivitamins, Therapeutic with Minerals Tab PO SCH (09:06)
[2020-11-11] MEDS: Aspirin 81 MG Tab.EC PO SCH (09:06)
[2020-11-11] MEDS: Insulin Lispro 100 Units/ML 3 ML Vial SUBCUT SCH ×4 (09:10→21:35)
[2020-11-11] MEDS: traMADol 50 MG Tab PO PRN ×2 (10:22→20:48)
[2020-11-11] MEDS: Thiamine 100 MG Tab PO SCH (20:40)
[2020-11-11] MEDS ORDERED: Sertraline 50 MG Tab PO SCH (21:00)
[2020-11-12] MEDS: LORazepam 2 MG/ML SDV IVPUSH PRN (05:37)
[2020-11-12] MEDS: traMADol 50 MG Tab PO PRN (05:37)
--- NOTE | 2020-11-12 08:22 | PCM.SN.2 ---
- Free Text/Narrative Note: START OF DOCTOR BEBETO PROGRESS NOTE Subjective: The patient endorses no complaints at this time. He states that he slept well overnight and that he is doing much better with his withdrawal symptoms. Overnight he denies fever, rigors, nausea, vomiting, cough, wheeze, abdominal pain, chest pain, dyspnea, or any other constitutional complaints. I explained to the patient his current medical condition and plan of care and have answered all of his questions Objective: General: -Alert -No acute distress -No dyspnea -No tachypnea Heart: -Regular rate -Regular rhythm -No murmurs -No gallops -No rubs Lungs: -No wheeze -No rhonchi -No rales Abdomen: -Normal bowel sounds in all four quadrants -No rebound -No guarding -No tenderness Extremities: -2/4 pulse in all four extremities -No clubbing -No cyanosis -No edema Additional Details / Additional Findings / Exceptions / Miscellaneous: Pertinent Laboratory Results / Pertinent Radiology Results / Pertinent Diagnostic Results / Pertinent Vital Signs: Vital signs stable Assessment / Plan: Alcohol withdrawal. [facility] protocol. Seizure precautions. multivitamin 1 tab p.o. daily plus vitamin B12 1000 mcg p.o. daily plus thiamine 100 mg p.o. daily plus folic acid 1 mg p.o. daily. I requested case management evaluate the patient for referral for alcohol rehabilitation Chest pain. Resolved. ACS ruled out Microscopic hematuria. Outpatient follow-up with urology upon discharge Hypomagnesemia. Will monitor magnesium levels intermittently and supplement as necessary Neuropathy Depression. Zoloft 25 mg p.o. nightly Transaminitis, chronic. Will monitor LFTs periodically with CMP. Likely sequelae of his history of alcohol abuse Medical noncompliance. Patient becomes regarding acute complaints History of pancreatitis. This likely due to his history of alcohol abuse Coronary artery disease, status post [place], status post stent. Aspirin 81 mg p.o. daily plus Plavix and 5 mg p.o. daily plus Coreg 3.125 mg p.o. twice daily Diabetes. Will check transfer glucose before every meal and at bedtime and provide insulin sliding scale plus Metformin 500 mg p.o. daily History of gastritis Hyperlipidemia Hypertension. Coreg 3.125 mg p.o. twice daily Suicidal ideation. I request that psychiatry/behavioral health evaluate the patient BPH History of gastrointestinal bleed Esophageal varices Angina DVT prophylaxis. Bilateral SCD Disposition: Patient appears medically stable for discharge however I will verify with the nursing staff how much, if any, Ativan the patient received over last 24 hours. I discussed the patient's case with case management/social work to determine discharge planning given his history of alcohol abuse END OF DOCTOR EMAMIS PROGRESS NOTE
[2020-11-12] MEDS: Clopidogrel 75 MG Tab PO SCH (08:41)
[2020-11-12] MEDS: metFORMIN 500 MG Tab PO SCH (08:41)
[2020-11-12] MEDS: Aspirin 81 MG Tab.EC PO SCH (08:42)
[2020-11-12] MEDS: Multivitamins, Therapeutic with Minerals Tab PO SCH (08:42)
[2020-11-12] MEDS: Cyanocobalamin (Vitamin B12) 1,000 MCG Tab PO SCH (08:42)
[2020-11-12] MEDS: Carvedilol 3.125 MG Tab PO SCH (08:42)
[2020-11-12] MEDS: Folic Acid 1 MG Tab PO SCH (08:43)
[2020-11-12] MEDS: Insulin Lispro 100 Units/ML 3 ML Vial SUBCUT SCH (08:45)
--- NOTE | 2020-11-12 09:11 | PCM.SN.2 ---
- Free Text/Narrative Note: START OF DOCTOR EMAMIS DISCHARGE SUMMARY Date of Admission: November 10, 2020 Date of Discharge: 9:09 AM on November 12, 2020 Primary Diagnosis: Alcohol withdrawal Secondary Diagnosis: Chest pain, ACS ruled out Microscopic hematuria Hypomagnesemia, status post treatment Neuropathy Depression Transaminitis, chronic. This likely sequelae of history of alcohol abuse Medical noncompliance History of pancreatitis, likely sequelae of history of alcohol abuse Coronary artery disease, status post RI, status post stent Diabetes History of gastritis Hyperlipidemia Hypertension History of suicidal ideation, patient deemed not to be a threat to himself by the behavioral health service BPH History of gastrointestinal bleed Esophageal varices Angina Consultations: None Condition on Discharge: Stable Disposition: The patient will receive a referral for alcohol rehabilitation upon discharge The patient is advised to follow-up with his primary care physician or provider 7 to 10 days post discharge for posthospitalization evaluation The patient will be advised to follow-up with urology within 1 month of discharge for microscopic hematuria Discharge Medications: Thiamine 100 mg p.o. daily Zoloft 25 mg p.o. nightly Metformin 500 mg p.o. daily Folic acid 1 mg p.o. daily Vitamin B12 1000 mcg p.o. daily Plavix 75 mg p.o. daily Coreg 3.125 mg p.o. twice daily Aspirin 81 mg p.o. daily Lisinopril 5 mg p.o. daily END OF DOCTOR EMAMIS DISCHARGE SUMMARY
== END 2020-11-12 11:30 | disposition home or self-care (01) | DRG 897 ==
LOC: DL.ED 02:22 → DL.MS 06:24
PROVIDERS: ADMIT Internal Medicine; ATTEND Internal Medicine
DX: F10.231 Alcohol dependence with withdrawal delirium (principal); R45.851 Suicidal ideations; I85.00 Esophageal varices without bleeding; R44.0 Auditory hallucinations; R31.29 Other microscopic hematuria; E83.42 Hypomagnesemia; R74.01 Elevation of levels of liver transaminase levels; E78.5 Hyperlipidemia, unspecified; I10 Essential (primary) hypertension; N40.0 Benign prostatic hyperplasia without lower urinary tract symptoms; Z20.822 Contact with and (suspected) exposure to COVID-19; I25.119 Atherosclerotic heart disease of native coronary artery with unspecified angina pectoris; F32.9 Major depressive disorder, single episode, unspecified; R44.1 Visual hallucinations; E11.42 Type 2 diabetes mellitus with diabetic polyneuropathy; R07.82 Intercostal pain; Z91.19 Patient's noncompliance with other medical treatment and regimen; I25.2 Old myocardial infarction; Z95.5 Presence of coronary angioplasty implant and graft; Z79.82 Long term (current) use of aspirin; Z79.84 Long term (current) use of oral hypoglycemic drugs; Z79.899 Other long term (current) drug therapy; Z28.82 Immunization not carried out because of caregiver refusal
CPT/HCPCS: 36415; 70450; 71260; 72192; 73030-RT; 80053; 80305-QW; 80307; 81001; 82150; 82947; 83690; 83735; 84484; 85025; 85379; 85610; 86140; 93005; 93010; 96365; 96375; 99284; 99285-25; A9270-GY; J1815-GY; J2060; J2405; J2765; J3411; J3475; J3490; J7030; J7120; Q9967; U0002

== ENCOUNTER 2020-12-15 18:30 | Inpatient (IN) | payer MEDICAID ==
[2020-12-15] MEDS ORDERED: LORazepam 2 MG/ML SDV IVPUSH ONE (19:04)
[2020-12-15] MEDS ORDERED: Ondansetron 4 MG/2 ML SDV IVPUSH ONE (19:04)
[2020-12-15 19:10] LABS: ANION GAP 19.5 mEq/L (7-13); CHLORIDE,CL 86 mmol/L (98-107); SODIUM,NA 125 mmol/L (136-145)
[2020-12-15] MEDS ORDERED: Potassium Chloride 10 MEQ in Premix Bag 1 BAG IV ONE (19:24)
[2020-12-15] MEDS ORDERED: Sodium Chloride 0.9% 1,000 ML IV ONE (19:24)
--- NOTE | 2020-12-15 19:26 | CR ---
PROCEDURE INFORMATION: Exam: XR Chest Exam date and time: 12/15/2020 6:50 PM Age: 55 years old Clinical indication: Pain; Other: Chest; Additional info: Chest pain TECHNIQUE: Imaging protocol: XR of the chest. Views: 1 view. COMPARISON: CT Chest w Cont 11/10/2020 4:31 AM FINDINGS: Lungs: Unremarkable. No consolidation. Pleural spaces: Unremarkable. No pleural effusion. No pneumothorax. Heart/Mediastinum: Unremarkable. No cardiomegaly. Bones/joints: Unremarkable. IMPRESSION: No acute findings.
[2020-12-15] MEDS ORDERED: Iopamidol 755 Mg/ML 100 ML Bottle IVPUSH ONE (19:27)
--- NOTE | 2020-12-15 20:04 | EDM.PDOC ---
ED HPI GENERAL MEDICAL PROBLEM - General Chief Complaint: Chest Pain Time Seen by Provider: 12/15/20 19:10 Source of Information: Reports: Patient, EMS, RN History Limitations: Reports: No Limitations - History of Present Illness INITIAL COMMENTS - FREE TEXT/NARRATIVE: ED with report chest pain anterior left x 2 days, seemed worse tonight, has nad nausea vomiting. ETOH withdrawal with auditory and visual hallucinations, feels like things crawling on legs. Peppermint schnapps yesterday. Stated only thing he had available today was hand vp sales. Reports seizure 2 days ago, kids just helped him up. Bruising to face. Stated from fall 4-5 days ago, unsure if LOC then. Admitted ETOH involved. States Sone one week ago feeling very dressed, Has not been taking any of medications due to drinking. Reports chronic neuropathy lower extremities and balance poor, Falls frequently. Chest Pain Score (Numeric/FACES): 10 - Related Data Allergies Allergy/AdvReac Type Severity Reaction Status Date / Time No Known Allergies Allergy Verified 11/10/20 02:31 Home Meds: Home Meds metFORMIN [Glucophage] 500 mg PO DAILY 01/24/19 [History] Clopidogrel [Plavix] 75 mg PO DAILY #30 tablet 11/04/20 [Rx] Sertraline [Zoloft] 25 mg PO BEDTIME #30 tablet 11/04/20 [Rx] carvediloL [Coreg] 3.125 mg PO BID #60 tablet 11/04/20 [Rx] lisinopriL [Prinivil] 5 mg PO DAILY #30 tablet 11/04/20 [Rx] Aspirin [Halfprin] 81 mg PO DAILY tab.ec 11/12/20 [Rx] Cyanocobalamin (Vitamin B12) [Vitamin B12] 1,000 mcg PO DAILY 30 Days #30 tablet 11/12/20 [Rx] Folic Acid 1 mg PO DAILY 30 Days #30 tablet 11/12/20 [Rx] Multivitamins/Minerals [Vitamins and Minerals] 1 tab PO WITHBREAKFAST 30 Days #30 tablet 11/12/20 [Rx] Thiamine [Vitamin B-1] 100 mg PO BEDTIME 30 Days #30 tablet 11/12/20 [Rx] atorvaSTATin Calcium [Atorvastatin Calcium] 20 mg PO DAILY 12/16/20 [History] Isosorbide Mononitrate [Imdur] 60 mg PO ACBREAKFAST 30 Days #30 tab.er 12/19/20 [Rx] Past Medical History HEENT History: Reports: None Cardiovascular History: Reports: Angina, Hypertension, SD, Stents Respiratory History: Reports: None Gastrointestinal History: Reports: Gastritis, GI Bleed, Other (See Below) Other Gastrointestinal History: Pancreatitis. Genitourinary History: Reports: None Musculoskeletal History: Reports: None Neurological History: Reports: Headaches, Chronic Psychiatric History: Reports: Addiction, Anxiety, Depression, Suicidal Ideation Endocrine/Metabolic History: Reports: Diabetes, Type II, Obesity/BMI 30+, Other (See Below) Hematologic History: Reports: None Immunologic History: Reports: None Oncologic (Cancer) History: Reports: None Dermatologic History: Reports: None - Infectious Disease History Infectious Disease History: Reports: Chicken Pox, Measles, Mumps - Past Surgical History Head Surgeries/Procedures: Reports: None Social & Family History - Family History Family Medical History: No Pertinent Family History Other Psychiatric Family History: 2 family members recently due to drug use. - Tobacco Use Tobacco Use Status *Q: Unknown Ever Used Tobacco - Caffeine Use Caffeine Use: Reports: Coffee - Recreational Drug Use Recreational Drug Use: No - Living Situation & Occupation Living situation: Reports: with Family Occupation: Unemployed ED ROS GENERAL - Review of Systems Review Of Systems: Comprehensive ROS is negative, except as noted in HPI. ED EXAM, GENERAL - Physical Exam Exam: See Below Exam Limited By: No Limitations General Appearance: Alert, Anxious Eye Exam: Right Eye: Other (periorbital bruising), Bilateral Eye: EOMI, PERRL Ears: Normal External Exam Nose: Normal Inspection Throat/Mouth: Normal Inspection Head: Atraumatic Neck: Normal Inspection Respiratory/Chest: No Respiratory Distress, Lungs Clear, Normal Breath Sounds Cardiovascular: Normal Peripheral Pulses, Regular Rate, Rhythm GI/Abdominal: Normal Bowel Sounds, Soft, Other (dry heaves, no emesis) Back Exam: Normal Inspection, Full Range of Motion Extremities: Normal Inspection, Normal Range of Motion Neurological: Alert, Oriented, Normal Cognition Skin Exam: Warm, Dry, Ecchymosis (right periorbital), Wound/Incision (abrasion nasal bridge) Course - Vital Signs Last Recorded V/S: Last Vital Signs Temp 98.6 F 12/19/20 12:00 Pulse 83 12/19/20 12:00 Resp 20 12/19/20 12:00 BP 116/78 12/19/20 12:00 Pulse Ox 95 12/19/20 12:00 - Orders/Labs/Meds Labs: Laboratory Tests 12/15/20 12/15/20 12/15/20 Range/Units 18:36 18:41 18:41 WBC 2.7 L (5.0-10.0) 10^3/uL RBC 4.72 (4.6-6.2) 10^6/uL Hgb 15.4 (14.0-18.0) g/dL Hct 42.1 (40.0-54.0) % MCV 89.2 (80-100) fL MCH 32.6 (27.0-34.0) pg MCHC 36.6 H (33.0-35.0) g/dL Plt Count 86 L D (150-450) 10^3/uL Neut % (Auto) 58.7 (42.2-75.2) % Lymph % (Auto) 20.8 (20.5-50.1) % Rankin % (Auto) 19.0 H (2-8) % Eos % (Auto) 0.4 L (1.0-3.0) % Baso % (Auto) 1.1 H (0.0-1.0) % PT 10.5 (9.0-12.0) SEC INR 1.0 (0.9-1.2) D-Dimer, Quantitative (0-400) ng/mL Sodium (136-145) mmol/L Potassium (3.5-5.1) mmol/L Chloride (98-107) mmol/L Carbon Dioxide (21-32) mmol/L Anion Gap (7-13) mEq/L BUN (7-18) mg/dL Creatinine (0.70-1.30) mg/dL Est Cr Clr Drug Dosing mL/min Estimated GFR (MDRD) BUN/Creatinine Ratio (No establ ref range) Glucose (70-99) mg/dL Calcium (8.5-10.1) mg/dL Magnesium (1.8-2.4) mg/dL Total Bilirubin (0.2-1.0) mg/dL AST (15-37) U/L ALT (16-63) U/L Alkaline Phosphatase (46-116) U/L Creatine Kinase (39-308) U/L Troponin I High Sens (<=76) pg/mL Total Protein (6.4-8.2) g/dL Albumin (3.4-5.0) g/dL Globulin Albumin/Globulin Ratio Amylase (25-115) U/L Lipase (73-393) U/L Free T4 (0.76-1.46) ng/dL TSH, Ultra Sensitive (0.36-3.74) uIU/mL Ethyl Alcohol (0) mg/dL Ketones SARS-CoV-2 RNA (BELINDA) Negative (NEGATIVE) 12/15/20 12/15/20 12/15/20 Range/Units 18:41 18:41 18:41 WBC (5.0-10.0) 10^3/uL RBC (4.6-6.2) 10^6/uL Hgb (14.0-18.0) g/dL Hct (40.0-54.0) % MCV (80-100) fL MCH (27.0-34.0) pg MCHC (33.0-35.0) g/dL Plt Count (150-450) 10^3/uL Neut % (Auto) (42.2-75.2) % Lymph % (Auto) (20.5-50.1) % Rankin % (Auto) (2-8) % Eos % (Auto) (1.0-3.0) % Baso % (Auto) (0.0-1.0) % PT (9.0-12.0) SEC INR (0.9-1.2) D-Dimer, Quantitative 1500 H (0-400) ng/mL Sodium 125 L D (136-145) mmol/L Potassium 2.5 L (3.5-5.1) mmol/L Chloride 86 L D (98-107) mmol/L Carbon Dioxide 22 (21-32) mmol/L Anion Gap 19.5 H (7-13) mEq/L BUN 4 L (7-18) mg/dL Creatinine 0.81 (0.70-1.30) mg/dL Est Cr Clr Drug Dosing 97.35 mL/min Estimated GFR (MDRD) > 60 BUN/Creatinine Ratio 4.9 (No establ ref range) Glucose 291 H (70-99) mg/dL Calcium 7.7 L (8.5-10.1) mg/dL Magnesium 1.9 (1.8-2.4) mg/dL Total Bilirubin 2.8 H (0.2-1.0) mg/dL AST 252 H (15-37) U/L ALT 166 H (16-63) U/L Alkaline Phosphatase 200 H (46-116) U/L Creatine Kinase 170 (39-308) U/L Troponin I High Sens 20 (<=76) pg/mL Total Protein 7.2 (6.4-8.2) g/dL Albumin 2.9 L (3.4-5.0) g/dL Globulin 4.3 Albumin/Globulin Ratio 0.67 Amylase 57 (25-115) U/L Lipase 251 (73-393) U/L Free T4 (0.76-1.46) ng/dL TSH, Ultra Sensitive (0.36-3.74) uIU/mL Ethyl Alcohol 232 (0) mg/dL Ketones SARS-CoV-2 RNA (BELINDA) (NEGATIVE) 12/15/20 12/15/20 Range/Units 18:41 18:41 WBC (5.0-10.0) 10^3/uL RBC (4.6-6.2) 10^6/uL Hgb (14.0-18.0) g/dL Hct (40.0-54.0) % MCV (80-100) fL MCH (27.0-34.0) pg MCHC (33.0-35.0) g/dL Plt Count (150-450) 10^3/uL Neut % (Auto) (42.2-75.2) % Lymph % (Auto) (20.5-50.1) % Rankin % (Auto) (2-8) % Eos % (Auto) (1.0-3.0) % Baso % (Auto) (0.0-1.0) % PT (9.0-12.0) SEC INR (0.9-1.2) D-Dimer, Quantitative (0-400) ng/mL Sodium (136-145) mmol/L Potassium (3.5-5.1) mmol/L Chloride (98-107) mmol/L Carbon Dioxide (21-32) mmol/L Anion Gap (7-13) mEq/L BUN (7-18) mg/dL Creatinine (0.70-1.30) mg/dL Est Cr Clr Drug Dosing mL/min Estimated GFR (MDRD) BUN/Creatinine Ratio (No establ ref range) Glucose (70-99) mg/dL Calcium (8.5-10.1) mg/dL Magnesium (1.8-2.4) mg/dL Total Bilirubin (0.2-1.0) mg/dL AST (15-37) U/L ALT (16-63) U/L Alkaline Phosphatase (46-116) U/L Creatine Kinase (39-308) U/L Troponin I High Sens (<=76) pg/mL Total Protein (6.4-8.2) g/dL Albumin (3.4-5.0) g/dL Globulin Albumin/Globulin Ratio Amylase (25-115) U/L Lipase (73-393) U/L Free T4 1.24 (0.76-1.46) ng/dL TSH, Ultra Sensitive 0.85 (0.36-3.74) uIU/mL Ethyl Alcohol (0) mg/dL Ketones Small-20 mg/dl SARS-CoV-2 RNA (BELINDA) (NEGATIVE) Meds: Medications Discontinued Medications Generic Name Dose Route Start Last Admin Trade Name Freq PRN Reason Stop Dose Admin Aspirin 81 mg 12/15/20 22:30 12/19/20 08:54 Aspirin 81 Mg Tab.Ec PO 81 mg DAILY ANSON Administration Carvedilol 3.125 mg 12/15/20 22:30 12/19/20 08:53 Carvedilol 3.125 Mg Tab PO 3.125 mg BIDMEALS ANSON Administration Clopidogrel Bisulfate 75 mg 12/15/20 22:30 12/19/20 08:54 Clopidogrel 75 Mg Tab PO 75 mg DAILY ANSON Administration Cyanocobalamin 1,000 mcg 12/16/20 09:00 12/19/20 08:55 Cyanocobalamin (Vitamin B12) 1,000 Mcg Tab PO 1,000 mcg DAILY ANSON Administration Dextrose/Water 50 ml 12/15/20 22:21 50% Dextrose In Water 50 Ml Syringe IVPUSH Q15M PRN Hypoglycemia Folic Acid 1 mg 12/16/20 09:00 12/19/20 08:54 Folic Acid 1 Mg Tab PO 1 mg DAILY ANSON Administration Glucagon 1 mg 12/15/20 22:21 Glucagon,Human Recombinant 1 Mg Vial IM Q15M PRN Hypoglycemia Potassium Chloride 10 meq/ 100 mls @ 100 mls/hr 12/15/20 19:24 12/15/20 19:35 Premix IV 12/15/20 20:23 100 mls/hr ONETIME ONE Administration Sodium Chloride 1,000 mls @ 100 mls/hr 12/15/20 19:24 12/15/20 19:33 Normal Saline IV 12/16/20 05:23 100 mls/hr .BOLUS ONE Administration Sodium Chloride 1,000 mls @ 75 mls/hr 12/15/20 22:15 12/19/20 00:32 Normal Saline IV 75 mls/hr ASDIRECTED ANSON Administration Insulin Human Lispro 0 unit 12/16/20 08:00 12/19/20 12:58 Insulin Lispro 100 Units/Ml 3 Ml Vial SUBCUT Not Given WITHMEALSANDBED ANSON Protocol Iopamidol 100 ml 12/15/20 19:27 12/15/20 20:19 Iopamidol 755 Mg/Ml 100 Ml Bottle IVPUSH 12/15/20 19:28 78 ml ONETIME ONE Administration Isosorbide Mononitrate 60 mg 12/15/20 23:00 12/19/20 06:29 Isosorbide Mononitrate 60 Mg Tab.Er PO 60 mg ACBREAKFAST ANSON Administration Isosorbide Mononitrate 60 mg 12/16/20 06:00 Isosorbide Mononitrate 60 Mg Tab.Er PO 12/16/20 06:01 .STK-MED ONE Lisinopril 5 mg 12/16/20 09:00 12/19/20 08:54 Lisinopril 5 Mg Tab PO 5 mg DAILY ANSON Administration Lorazepam 1 mg 12/15/20 19:04 12/15/20 19:12 Lorazepam 2 Mg/Ml Sdv IVPUSH 12/15/20 19:05 1 mg ONETIME ONE Administration Lorazepam 1 - 3 mg 12/15/20 22:17 12/19/20 03:26 Lorazepam 2 Mg/Ml Sdv IV 2 mg ASDIRECTED PRN Administration alcohol withdrawal Protocol Lorazepam 1 mg 12/16/20 05:30 Lorazepam 2 Mg/Ml Sdv IV 12/16/20 05:31 .STK-MED ONE Metformin HCl 500 mg 12/16/20 08:00 12/19/20 08:54 Metformin 500 Mg Tab PO 500 mg WITHBREAKFAST ANSON Administration Multivitamins/Minerals 1 tab 12/16/20 08:00 12/19/20 08:53 Multivitamins, Therapeutic With Minerals Tab PO 1 tab WITHBREAKFAST ANSON Administration Ondansetron HCl 4 mg 12/15/20 19:04 12/15/20 19:11 Ondansetron 4 Mg/2 Ml Sdv IVPUSH 12/15/20 19:05 4 mg ONETIME ONE Administration Ondansetron HCl 4 mg 12/15/20 22:14 12/18/20 11:05 Ondansetron 4 Mg/2 Ml Sdv IVPUSH 4 mg Q4H PRN Administration Nausea/Vomiting Potassium Chloride 40 meq 12/15/20 22:30 12/16/20 07:11 Potassium Chloride 10 Meq Tab.Er PO 12/16/20 02:31 Not Given Q2H ANSON Potassium Chloride 40 meq 12/16/20 07:15 12/16/20 12:00 Potassium Chloride 10 Meq Tab.Er PO 12/16/20 11:16 40 meq Q2H ANSON Administration Potassium Chloride 40 meq 12/16/20 06:00 Potassium Chloride 10 Meq Tab.Er PO 12/16/20 06:01 .STK-MED ONE Sertraline HCl 25 mg 12/16/20 21:00 12/18/20 22:15 Sertraline 50 Mg Tab PO 25 mg BEDTIME ANSON Administration Sodium Chloride 10 ml 12/15/20 22:14 Sodium Chloride 0.9% 10 Ml Syringe FLUSH ASDIRECTED PRN Keep Vein Open Thiamine HCl 100 mg 12/16/20 21:00 12/18/20 22:16 Thiamine 100 Mg Tab PO 100 mg BEDTIME ANSON Administration Tramadol HCl 100 mg 12/17/20 03:53 12/19/20 03:27 Tramadol 50 Mg Tab PO 100 mg Q8H PRN Administration Pain (severe 7-10) - Re-Assessments/Exams Free Text/Narrative Re-Assessment/Exam: 12/15/20 21:49 Dozing, no further c/o, arouses easily. Intermittent request for ice chips. Dr Rosen accepting for admission. Departure - Departure Time of Disposition: 21:00 Disposition: Admitted As Inpatient 64 Condition: Fair Clinical Impression: Alcohol abuse, Grief, Noncompliance with medication regimen Depression Qualifiers: Depression Type: reactive depression Qualified Code(s): F32.9 - Major depressive disorder, single episode, unspecified Alcohol withdrawal Qualifiers: Complication of substance-induced condition: uncomplicated Qualified Code(s): F10.230 - Alcohol dependence with withdrawal, uncomplicated Sepsis Event Note (ED) - Evaluation Sepsis Screening Result: No Definite Risk CIWAA - CIWAA CIWAA Nausea And Vomitin - Intermittent Nausea with Dry Heaves CIWAA Tremor: 4 - Moderate, with Patient's Arms Extended CIWAA Paroxysmal Sweats: 2 CIWAA Anxiety: 1 - Mildly Anxious CIWAA Agitation: 1 -Somewhat More than Normal Activity CIWAA Tactile Disturbances: 2 - Mild Itching, Pins and [place], Burning or Numbness CIWAA Auditory Disturbances: 3 - Moderate Harshness or Ability to Frighten CIWAA Visual Disturbances: 4 - Moderately Severe Hallucinations CIWAA Headache, Fullness in Head: 3 - Moderate CIWAA Orientation And Clouding Of Sensorium: 0 - Oriented and Can do Serial Additions CIWAA Scale Score: 24
--- NOTE | 2020-12-15 20:30 | CT ---
PROCEDURE INFORMATION: Exam: CT Head Without Contrast Exam date and time: 12/15/2020 7:54 PM Age: 55 years old Clinical indication: Injury or trauma; Fall; Blunt trauma (contusions or hematomas); With loss of consciousness; Not specified TECHNIQUE: Imaging protocol: Computed tomography of the head without contrast. Radiation optimization: All CT scans at this facility use at least one of these dose optimization techniques: automated exposure control; mA and/or kV adjustment per patient size (includes targeted exams where dose is matched to clinical indication); or iterative reconstruction. COMPARISON: CT Head wo Cont 11/10/2020 4:31 AM FINDINGS: Brain: Normal. No hemorrhage. Unremarkable white matter. No mass effect. Cerebral ventricles: No ventriculomegaly. Paranasal sinuses: Visualized sinuses are unremarkable. No fluid levels. Mastoid air cells: Visualized mastoid air cells are well aerated. Bones/joints: Unremarkable. No acute fracture. Soft tissues: Unremarkable. IMPRESSION: 1. No acute intracranial abnormality. 2. No intracranial hemorrhage. 3. No cerebral edema. 4. No skull fracture.
--- NOTE | 2020-12-15 20:36 | CT ---
PROCEDURE INFORMATION: Exam: CT Chest With Contrast; Diagnostic Exam date and time: 12/15/2020 7:54 PM Age: 55 years old Clinical indication: Injury or trauma; Fall; Blunt trauma (contusions or hematomas) TECHNIQUE: Imaging protocol: Diagnostic computed tomography of the chest with contrast. Radiation optimization: All CT scans at this facility use at least one of these dose optimization techniques: automated exposure control; mA and/or kV adjustment per patient size (includes targeted exams where dose is matched to clinical indication); or iterative reconstruction. Contrast material: ISOVUE 370; Contrast volume: 78 ml; Contrast route: INTRAVENOUS (IV); COMPARISON: CT Chest w Cont 11/10/2020 4:31 AM FINDINGS: Lungs: Mild posterior lung base dependent atelectasis. No features to suggest lung contusion. No suspicious consolidation. Pleural spaces: No pneumothorax. No pleural fluid accumulation. Heart: See "Pulmonary arteries" finding. Pulmonary arteries: Pulmonary arteries unremarkable. Normal heart size. No pericardial effusion. Aorta: Thoracic aorta is normal in course and caliber. No traumatic change. Lymph nodes: Unremarkable. No enlarged lymph nodes. Liver: Severe fatty liver change. Kidneys and ureters: Medial left renal partially visualized cyst measuring 13 mm. Bones/joints: Thoracic skeletal structures are unremarkable. There is degenerative thoracic spine disease. No acute thoracic spine fracture. No sternal fracture. Ribs are unremarkable bilaterally. Soft tissues: Chest wall soft tissues are unremarkable. No hematoma. No foreign body. IMPRESSION: 1. No traumatic lung consolidation. Minor posterior lung atelectasis. 2. No pleural fluid or pneumothorax. 3. No chest wall contusion, hematoma, or foreign body evident by CT. 4. Thoracic skeletal structures are intact. 5. Great vessels of the mediastinum are unremarkable. 6. Fatty liver change. 7. Partially visible left renal cyst. COMMENTS: Consistent with the [employer]'s Incidental Findings Committee white paper (J Am Miguel A Radiol 2018): Any incidental renal lesion less than 1 cm or classified as too small to characterize, or any incidental cystic renal lesion characterized as simple-appearing, is likely benign. No follow-up imaging is recommended for these lesions per consensus recommendations based on imaging criteria.
--- NOTE | 2020-12-15 20:37 | CT ---
PROCEDURE INFORMATION: Exam: CT Maxillofacial Without Contrast Exam date and time: 12/15/2020 7:54 PM Age: 55 years old Clinical indication: Injury or trauma; Fall; Blunt trauma (contusions or hematomas); Head/scalp; Loss of consciousness TECHNIQUE: Imaging protocol: Computed tomography images of the face without contrast. Radiation optimization: All CT scans at this facility use at least one of these dose optimization techniques: automated exposure control; mA and/or kV adjustment per patient size (includes targeted exams where dose is matched to clinical indication); or iterative reconstruction. COMPARISON: CT Head wo Cont 11/10/2020 4:31 AM FINDINGS: Orbital cavity: Orbits are normal. Globes are unremarkable. Bones/joints: No acute fracture. Paranasal sinuses: Normal. No air-fluid levels. Soft tissues: Unremarkable. IMPRESSION: 1. No acute findings. 2. No facial bone fracture. 3. No sinus air-fluid levels. 4. Orbits and contents are unremarkable. 5. No soft tissue foreign body of the facial region. 6. Multifocal dental disease.
[2020-12-15] MEDS ORDERED: Sodium Chloride 0.9% 10 ML Syringe FLUSH PRN (22:14)
[2020-12-15] MEDS ORDERED: 50% Dextrose in Water 50 ML Syringe IVPUSH PRN (22:21)
[2020-12-15] MEDS ORDERED: Glucagon,Human Recombinant 1 MG Vial IM PRN (22:21)
--- NOTE | 2020-12-15 22:30 | PCM.HP ---
H&P History of Present Illness - General Date of Service: 12/15/20 Admit Problem/Dx: Admission Diagnosis/Problem Admission Diagnosis/Problem Alcohol withdrawal delirium Source of Information: Patient - History of Present Illness Initial Comments - Free Text/Narative: The patient is a 55-year-old L who presents chief complaint of chest pain and "I feel as though I am going through withdrawals". Please note during the course of my interview the patient is argumentative, tangential, not cooperative, and somewhat hostile. I question whether he may still be in toxic with alcohol. Upon further questioning, with difficulty, I have discovered that the patient is noncompliant with his medication. 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 He states that he was too busy to take his medication. 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 He also admits to left chest pain which at its worst to rated 10 out of 10 and he stated at the time of interview he rated 8 out of 10 however he appeared to exhibit no outward subjective signs of distress and upon refocusing he states that his chest pain rated 6 out of 10. He describes the pain as stabbing and he states that the pain started approximately 10 AM on this day of December 15, 2020 however he did not seek medical attention until approximately 5 PM on this day of December 15, 2020. He states since the time of onset his chest pain has been intermittent. He denies any radiation from the left side of his chest. He states that he did not take any medication at home because as mentioned above, the patient chose not to pickling operator his medication during his last hospitalization. He presents for further evaluation Chest Pain Score (Numeric/FACES): 10 - Related Data Allergies/Adverse Reactions: Allergies Allergy/AdvReac Type Severity Reaction Status Date / Time No Known Allergies Allergy Verified 11/10/20 02:31 Home Medications: Home Meds metFORMIN [Glucophage] 500 mg PO DAILY 01/24/19 [History] Clopidogrel [Plavix] 75 mg PO DAILY #30 tablet 11/04/20 [Rx] Sertraline [Zoloft] 25 mg PO BEDTIME #30 tablet 11/04/20 [Rx] carvediloL [Coreg] 3.125 mg PO BID #60 tablet 11/04/20 [Rx] lisinopriL [Prinivil] 5 mg PO DAILY #30 tablet 11/04/20 [Rx] Aspirin [Halfprin] 81 mg PO DAILY tab.ec 11/12/20 [Rx] Cyanocobalamin (Vitamin B12) [Vitamin B12] 1,000 mcg PO DAILY 30 Days #30 tablet 11/12/20 [Rx] Folic Acid 1 mg PO DAILY 30 Days #30 tablet 11/12/20 [Rx] Multivitamins/Minerals [Vitamins and Minerals] 1 tab PO WITHBREAKFAST 30 Days #30 tablet 11/12/20 [Rx] Thiamine [Vitamin B-1] 100 mg PO BEDTIME 30 Days #30 tablet 11/12/20 [Rx] Past Medical History HEENT History: Reports: None Cardiovascular History: Reports: Angina, Hypertension, [place], Stents Respiratory History: Reports: None Gastrointestinal History: Reports: Gastritis, GI Bleed, Other (See Below) Other Gastrointestinal History: Pancreatitis. Genitourinary History: Reports: None Musculoskeletal History: Reports: None Neurological History: Reports: Headaches, Chronic Psychiatric History: Reports: Addiction, Anxiety, Depression, Suicidal Ideation Endocrine/Metabolic History: Reports: Diabetes, Type II, Obesity/BMI 30+, Other (See Below) Hematologic History: Reports: None Immunologic History: Reports: None Oncologic (Cancer) History: Reports: None Dermatologic History: Reports: None - Infectious Disease History Infectious Disease History: Reports: Chicken Pox, Measles, Mumps - Past Surgical History Head Surgeries/Procedures: Reports: None Social & Family History - Family History Family Medical History: No Pertinent Family History Other Psychiatric Family History: 2 family members recently due to drug use. - Tobacco Use Tobacco Use Status *Q: Unknown Ever Used Tobacco - Caffeine Use Caffeine Use: Reports: Coffee - Recreational Drug Use Recreational Drug Use: No - Living Situation & Occupation Living situation: Reports: with Family Occupation: Unemployed H&P Review of Systems - Review of Systems: Review Of Systems: See Below General: Reports: No Symptoms HEENT: Reports: No Symptoms Pulmonary: Reports: No Symptoms Cardiovascular: Reports: No Symptoms Gastrointestinal: Reports: Abdominal Pain Genitourinary: Reports: No Symptoms Musculoskeletal: Reports: No Symptoms Skin: Reports: No Symptoms Psychiatric: Reports: No Symptoms Neurological: Reports: No Symptoms Hematologic/Lymphatic: Reports: No Symptoms Immunologic: Reports: No Symptoms Exam - Exam Exam: See Below - Vital Signs Vital Signs: Last Vital Signs Temp 98.4 F 12/15/20 18:45 Pulse 107 H 12/15/20 18:45 Resp 20 12/15/20 18:45 BP 123/83 12/15/20 18:45 Pulse Ox 99 12/15/20 18:45 Weight: 224 lb - Exam General: Alert, Oriented, 4 HEENT: PERRLA, Hearing Intact, Mucosa Moist & [place], Nares Patent, Normal Nasal Septum, Posterior Pharynx Clear, Conjunctiva Clear, EOMI, EACs Clear, TMs Clear Neck: Supple, Trachea Midline, 2 Lungs: Clear to Auscultation, Normal Respiratory Effort Cardiovascular: Regular Rate, Regular Rhythm GI/Abdominal Exam: Tender Extremities: Normal Inspection, Normal Range of Motion, Non-Tender, No Pedal Edema, Normal Capillary Refill Skin: Warm, Dry, Intact Neurological: Cranial Nerves Intact, Reflexes Equal Bilateral Neuro Extensive - Mental Status: Alert, Oriented x3, Normal Mood/Affect, Normal Cognition Neuro Extensive - Motor, Sensory, Reflexes: CN II-XII Intact, Normal Gait, Normal Reflexes Psychiatric: Normal Affect, Agitated - Patient Data Lab Results Last 24 hrs: Laboratory Results - last 24 hr 12/15/20 12/15/20 12/15/20 Range/Units 18:36 18:41 18:41 WBC 2.7 L (5.0-10.0) 10^3/uL RBC 4.72 (4.6-6.2) 10^6/uL Hgb 15.4 (14.0-18.0) g/dL Hct 42.1 (40.0-54.0) % MCV 89.2 (80-100) fL MCH 32.6 (27.0-34.0) pg MCHC 36.6 H (33.0-35.0) g/dL Plt Count 86 L D (150-450) 10^3/uL Neut % (Auto) 58.7 (42.2-75.2) % Lymph % (Auto) 20.8 (20.5-50.1) % [place] % (Auto) 19.0 H (2-8) % Eos % (Auto) 0.4 L (1.0-3.0) % Baso % (Auto) 1.1 H (0.0-1.0) % PT 10.5 (9.0-12.0) SEC INR 1.0 (0.9-1.2) D-Dimer, Quantitative (0-400) ng/mL Sodium (136-145) mmol/L Potassium (3.5-5.1) mmol/L Chloride (98-107) mmol/L Carbon Dioxide (21-32) mmol/L Anion Gap (7-13) mEq/L BUN (7-18) mg/dL Creatinine (0.70-1.30) mg/dL Est Cr Clr Drug Dosing mL/min Estimated GFR (MDRD) BUN/Creatinine Ratio (No establ ref range) Glucose (70-99) mg/dL Calcium (8.5-10.1) mg/dL Magnesium (1.8-2.4) mg/dL Total Bilirubin (0.2-1.0) mg/dL AST (15-37) U/L ALT (16-63) U/L Alkaline Phosphatase (46-116) U/L Creatine Kinase (39-308) U/L Troponin I High Sens (<=76) pg/mL Total Protein (6.4-8.2) g/dL Albumin (3.4-5.0) g/dL Globulin Albumin/Globulin Ratio Amylase (25-115) U/L Lipase (73-393) U/L Ethyl Alcohol (0) mg/dL Ketones SARS-CoV-2 RNA (BELINDA) Negative (NEGATIVE) 12/15/20 12/15/20 12/15/20 Range/Units 18:41 18:41 18:41 WBC (5.0-10.0) 10^3/uL RBC (4.6-6.2) 10^6/uL Hgb (14.0-18.0) g/dL Hct (40.0-54.0) % MCV (80-100) fL MCH (27.0-34.0) pg MCHC (33.0-35.0) g/dL Plt Count (150-450) 10^3/uL Neut % (Auto) (42.2-75.2) % Lymph % (Auto) (20.5-50.1) % [place] % (Auto) (2-8) % Eos % (Auto) (1.0-3.0) % Baso % (Auto) (0.0-1.0) % PT (9.0-12.0) SEC INR (0.9-1.2) D-Dimer, Quantitative 1500 H (0-400) ng/mL Sodium 125 L D (136-145) mmol/L Potassium 2.5 L (3.5-5.1) mmol/L Chloride 86 L D (98-107) mmol/L Carbon Dioxide 22 (21-32) mmol/L Anion Gap 19.5 H (7-13) mEq/L BUN 4 L (7-18) mg/dL Creatinine 0.81 (0.70-1.30) mg/dL Est Cr Clr Drug Dosing 97.35 mL/min Estimated GFR (MDRD) > 60 BUN/Creatinine Ratio 4.9 (No establ ref range) Glucose 291 H (70-99) mg/dL Calcium 7.7 L (8.5-10.1) mg/dL Magnesium 1.9 (1.8-2.4) mg/dL Total Bilirubin 2.8 H (0.2-1.0) mg/dL AST 252 H (15-37) U/L ALT 166 H (16-63) U/L Alkaline Phosphatase 200 H (46-116) U/L Creatine Kinase 170 (39-308) U/L Troponin I High Sens 20 (<=76) pg/mL Total Protein 7.2 (6.4-8.2) g/dL Albumin 2.9 L (3.4-5.0) g/dL Globulin 4.3 Albumin/Globulin Ratio 0.67 Amylase 57 (25-115) U/L Lipase 251 (73-393) U/L Ethyl Alcohol 232 (0) mg/dL Ketones SARS-CoV-2 RNA (BELINDA) (NEGATIVE) 12/15/20 Range/Units 18:41 WBC (5.0-10.0) 10^3/uL RBC (4.6-6.2) 10^6/uL Hgb (14.0-18.0) g/dL Hct (40.0-54.0) % MCV (80-100) fL MCH (27.0-34.0) pg MCHC (33.0-35.0) g/dL Plt Count (150-450) 10^3/uL Neut % (Auto) (42.2-75.2) % Lymph % (Auto) (20.5-50.1) % [place] % (Auto) (2-8) % Eos % (Auto) (1.0-3.0) % Baso % (Auto) (0.0-1.0) % PT (9.0-12.0) SEC INR (0.9-1.2) D-Dimer, Quantitative (0-400) ng/mL Sodium (136-145) mmol/L Potassium (3.5-5.1) mmol/L Chloride (98-107) mmol/L Carbon Dioxide (21-32) mmol/L Anion Gap (7-13) mEq/L BUN (7-18) mg/dL Creatinine (0.70-1.30) mg/dL Est Cr Clr Drug Dosing mL/min Estimated GFR (MDRD) BUN/Creatinine Ratio (No establ ref range) Glucose (70-99) mg/dL Calcium (8.5-10.1) mg/dL Magnesium (1.8-2.4) mg/dL Total Bilirubin (0.2-1.0) mg/dL AST (15-37) U/L ALT (16-63) U/L Alkaline Phosphatase (46-116) U/L Creatine Kinase (39-308) U/L Troponin I High Sens (<=76) pg/mL Total Protein (6.4-8.2) g/dL Albumin (3.4-5.0) g/dL Globulin Albumin/Globulin Ratio Amylase (25-115) U/L Lipase (73-393) U/L Ethyl Alcohol (0) mg/dL Ketones Small-20 mg/dl SARS-CoV-2 RNA (BELINDA) (NEGATIVE) Result Diagrams: 12/15/20 18:41 12/15/20 18:41 Problem List Initiated/Reviewed/Updated: Yes Orders Last 24hrs: Active Orders 24 hr Category Date Time Status Patient Status [ADT] Routine ADT 12/15/20 22:14 Ordered Antiembolic Devices [RC] PER UNIT ROUTINE Care 12/15/20 22:16 Ordered Aspiration Precautions [RC] ASDIRECTED Care 12/15/20 22:17 Ordered Blood Glucose Check, Bedside [RC] WITHMEALSANDBED Care 12/15/20 22:14 Ordered EKG 12 Lead [EKG Documentation Completion] [RC] ROUTINE Care 12/16/20 06:00 Ordered Notify Provider [RC] PRN Care 12/15/20 22:17 Ordered Peripheral IV Care [RC] . DIRECTED Care 12/15/20 22:16 Ordered Telemetry Monitoring [Cardiac Monitoring] [RC] . Care 12/15/20 22:19 Ordered DIRECTED Up With Assistance [RC] ASDIRECTED Care 12/15/20 22:14 Ordered Vital Signs [RC] Q4H Care 12/15/20 22:14 Ordered Consult to Case Management/Emulsion Operator [CONS] Cons 12/15/20 22:14 Ordered Routine Consistent Carbohydrate Diet [DIET] Diet 12/15/20 Dinner Ordered CBC WITH AUTO DIFF [HEME] Routine Lab 12/16/20 05:00 Ordered CMP [COMPREHENSIVE METABOLIC PN,CMP] [CHEM] Routine Lab 12/16/20 05:00 Ordered INR,PT,PROTHROMBIN TIME [COAG] Routine Lab 12/16/20 05:00 Ordered LIPID PANEL [CHEM] Routine Lab 12/16/20 05:00 Ordered T4 FREE [CHEM] Routine Lab 12/15/20 22:19 Ordered TROPONIN I [CHEM] Q6H Lab 12/15/20 23:59 Ordered TROPONIN I [CHEM] Q6H Lab 12/16/20 05:59 Ordered TSH ULTRASENSITIVE [CHEM] Routine Lab 12/15/20 22:19 Ordered Aspirin [Halfprin] Med 12/15/20 22:30 Ordered 81 mg PO DAILY Clopidogrel [Plavix] Med 12/15/20 22:30 Ordered 75 mg PO DAILY Cyanocobalamin (Vitamin B12) [Vitamin B12] Med 12/16/20 09:00 Ordered 1,000 mcg PO DAILY Dextrose 50% in Water Med 12/15/20 22:21 Ordered 50 ml IVPUSH Q15M PRN Folic Acid Med 12/16/20 09:00 Ordered 1 mg PO DAILY Glucagon,Human Recombinant [GlucaGen] Med 12/15/20 22:21 Ordered 1 mg IM Q15M PRN Insulin Lispro [HumaLOG] Med 12/16/20 08:00 Ordered See Protocol SUBCUT WITHMEALSANDBED Isosorbide Mononitrate [Imdur] Med 12/15/20 23:00 Ordered 60 mg PO ACBREAKFAST LORazepam [Ativan] Med 12/15/20 22:17 Ordered See Protocol IV TITRATE PRN Multivitamins/Minerals [Vitamins and Minerals] Med 12/16/20 08:00 Ordered 1 tab PO WITHBREAKFAST Ondansetron [Zofran] Med 12/15/20 22:14 Ordered 4 mg IVPUSH Q4H PRN Potassium Chloride [Klor-Con 10] Med 12/15/20 22:30 Ordered 40 meq PO Q2H Sertraline [Zoloft] Med 12/16/20 21:00 Ordered 25 mg PO BEDTIME Sodium Chloride 0.9% [Normal Saline] 1,000 ml Med 12/15/20 19:24 Active IV .BOLUS Sodium Chloride 0.9% [Normal Saline] 1,000 ml Med 12/15/20 22:15 Ordered IV ASDIRECTED Sodium Chloride 0.9% [Saline Flush] Med 12/15/20 22:14 Ordered 10 ml FLUSH ASDIRECTED PRN Thiamine [Vitamin B-1] Med 12/16/20 21:00 Ordered 100 mg PO BEDTIME carvediloL [Coreg] Med 12/15/20 22:30 Ordered 3.125 mg PO BID lisinopriL [Prinivil] Med 12/16/20 09:00 Ordered 5 mg PO DAILY metFORMIN [Glucophage] Med 12/16/20 09:00 Ordered 500 mg PO DAILY Peripheral IV Insertion Adult [OM.PC] Routine Oth 12/15/20 22:14 Ordered Seizure Precautions [OM.PC] Routine Oth 12/15/20 22:16 Ordered Seizure Precautions [OM.PC] Stat Oth 12/15/20 22:17 Ordered Sequential Compression Device [OM.PC] Per Unit Routine Oth 12/15/20 22:15 Ordered Resuscitation Status Routine Resus Stat 12/15/20 22:14 Ordered Medication Orders Aspirin (Aspirin 81 Mg Tab.Ec) 81 mg PO DAILY [facility] Carvedilol (Carvedilol 3.125 Mg Tab) 3.125 mg PO BID [facility] Clopidogrel Bisulfate (Clopidogrel 75 Mg Tab) 75 mg PO DAILY [facility] Cyanocobalamin (Cyanocobalamin (Vitamin B12) 1,000 Mcg Tab) 1,000 mcg PO DAILY [facility] Dextrose/Water (50% Dextrose In Water 50 Ml Syringe) 50 ml IVPUSH Q15M PRN PRN Reason: Hypoglycemia Folic Acid (Folic Acid 1 Mg Tab) 1 mg PO DAILY [facility] Glucagon (Glucagon,Human Recombinant 1 Mg Vial) 1 mg IM Q15M PRN PRN Reason: Hypoglycemia Sodium Chloride (Normal Saline) 1,000 mls @ 100 mls/hr IV .BOLUS ONE Stop: 12/16/20 05:23 Last Admin: 12/15/20 19:33 Dose: 100 mls/hr Documented by: CJ Sodium Chloride (Normal Saline) 1,000 mls @ 75 mls/hr IV ASDIRECTED [facility] Insulin Human Lispro (Insulin Lispro 100 Units/Ml 3 Ml Vial) 0 unit SUBCUT WITHMEALSANDBED [facility]; Protocol Lisinopril (Lisinopril 5 Mg Tab) 5 mg PO DAILY [facility] Lorazepam (Lorazepam 2 Mg/Ml Sdv) 0 mg IV TITRATE PRN; Protocol PRN Reason: alcohol withdrawal Metformin HCl (Metformin 500 Mg Tab) 500 mg PO DAILY [facility] Multivitamins/Minerals (Multivitamins, Therapeutic With Minerals Tab) 1 tab PO WITHBREAKFAST [facility] Ondansetron HCl (Ondansetron 4 Mg/2 Ml Sdv) 4 mg IVPUSH Q4H PRN PRN Reason: Nausea/Vomiting Potassium Chloride (Potassium Chloride 10 Meq Tab.Er) 40 meq PO Q2H [facility] Stop: 12/16/20 02:31 Sodium Chloride (Sodium Chloride 0.9% 10 Ml Syringe) 10 ml FLUSH ASDIRECTED PRN PRN Reason: Keep Vein Open Assessment/Plan Comment:: Chest pain, rule out ACS. Will monitor patient on telemetry and check serial enzymes and check his age and free T4. Magnesium level within normal notes. In the morning will check fasting lipid panel recheck EKG. Aspirin 81 mg p.o. daily plus Plavix and 5 mg p.o. daily plus Coreg 3.25 mg p.o. twice daily plus Imdur 60 mg p.o. daily. No statin at this time due to transaminitis Medical noncompliance. The patient will be counseled regarding medical compliance Alcohol abuse with alcohol withdrawal. Seizure precautions. IV as needed Ativan per [facility] protocol. Vitamin B12 1000 m P daily plus thiamine 100 mg p.o. daily plus folic acid 1 mg p.o. daily plus multivitamin 1 tab p.o. daily Transaminitis, chronic. Will monitor LFTs periodically with CMP Hypokalemia. Will monitor potassium levels intermittently and supplement as necessary. Telemetry monitoring Hyponatremia. Will monitor sodium levels intermittently. IV normal saline 75 mils per hour Hepatic steatosis Thrombocytopenia, likely sequelae of history of alcohol use. Monitor platelet count intermittently Coronary artery disease, status post UT, status post stent. Coreg 3.25 mg p.o. twice daily plus aspirin 81 mg p.o. daily plus Plavix and 5 mg p.o. daily plus Imdur 60 mg p.o. daily. No statin due to transaminitis Diabetes. Will check fasting glucose before every meal and at bedtime and provide some sliding scale plus Metformin 5 mg p.o. daily History gastritis Hyperlipidemia. Will check fasting lipid panel Hypertension. Coreg 3.25 mg p.o. twice daily plus Imdur 60 mg p.o. daily plus lisinopril 5 mg p.o. daily Obesity. Patient be counseled regarding lifestyle education Depression. Zoloft 25 mg p.o. nightly Angina. Imdur 60 mg p.o. daily History of pancreatitis, likely sequelae of history of alcohol use Anxiety Depression History of suicidal ideation History of microscopic hematuria. Outpatient follow-up with urology upon discharge Neuropathy BPH History of gastrointestinal bleed Esophageal varices Poor dentition. Outpatient follow-up with dentistry upon discharge DVT prophylaxis. Bilateral CD Disposition: I will request that case management evaluate the patient for referral for alcohol rehabilitation. Anticipate discharge in 72 to 96 hours, however this is entirely dependent on patient's alcohol withdrawal
[2020-12-15] MEDS: Sodium Chloride 0.9% 1,000 ML IV SCH (22:35)
[2020-12-15] MEDS: LORazepam 2 MG/ML SDV IV PRN (23:02)
[2020-12-15] MEDS: Potassium Chloride 10 MEQ Tab.ER PO SCH (23:03)
[2020-12-15] MEDS: Aspirin 81 MG Tab.EC PO SCH (23:04)
[2020-12-15] MEDS: Isosorbide Mononitrate 60 MG Tab.ER PO SCH (23:04)
[2020-12-15] MEDS: Carvedilol 3.125 MG Tab PO SCH (23:04)
[2020-12-15] MEDS: Clopidogrel 75 MG Tab PO SCH (23:04)
[2020-12-16] MEDS: LORazepam 2 MG/ML SDV IV PRN ×8 (01:20→22:43)
[2020-12-16] MEDS: Potassium Chloride 10 MEQ Tab.ER PO SCH ×5 (01:20→12:00)
[2020-12-16] MEDS ORDERED: LORazepam 2 MG/ML SDV IV ONE (05:30)
[2020-12-16] MEDS ORDERED: Potassium Chloride 10 MEQ Tab.ER PO ONE (06:00)
[2020-12-16] MEDS ORDERED: Isosorbide Mononitrate 60 MG Tab.ER PO ONE (06:00)
[2020-12-16 07:01] LABS: CHLORIDE,CL 89 mmol/L (98-107); SODIUM,NA 129 mmol/L (136-145)
[2020-12-16] MEDS: Isosorbide Mononitrate 60 MG Tab.ER PO SCH (07:12)
--- NOTE | 2020-12-16 07:19 | PCM.PN ---
- General Info Date of Service: 12/16/20 Subjective Update: The patient offers a litany of complaints. He indicates that he still feels tremulous from alcohol withdrawal. Overnight he denies fever. He endorses rigors, cough, wheeze, abdominal pain, and he states he had an episode of chest pain which resolved. He also endorses dyspnea. I explained to the patient his current medical condition and plan of care and I have answered all of his questions Functional Status: Reports: Pain Controlled - Review of Systems General: Reports: No Symptoms HEENT: Reports: No Symptoms Pulmonary: Reports: No Symptoms Cardiovascular: Reports: No Symptoms Gastrointestinal: Reports: No Symptoms Genitourinary: Reports: No Symptoms Musculoskeletal: Reports: No Symptoms Skin: Reports: No Symptoms Neurological: Reports: No Symptoms Psychiatric: Reports: No Symptoms - Patient Data Vitals - Most Recent: Last Vital Signs Temp 97.8 F 12/15/20 22:14 Pulse 78 12/15/20 23:04 Resp 16 12/15/20 22:14 BP 136/79 12/15/20 23:04 Pulse Ox 97 12/15/20 22:14 Weight - Most Recent: 223 lb 9.6 oz I&O - Last 24 Hours: Intake & Output 12/15/20 12/16/20 12/16/20 22:59 06:59 14:59 Intake Total 400 400 Balance 400 400 Lab Results Last 24 Hours: Laboratory Results - last 24 hr 12/15/20 12/15/20 12/15/20 Range/Units 18:36 18:41 18:41 WBC 2.7 L (5.0-10.0) 10^3/uL RBC 4.72 (4.6-6.2) 10^6/uL Hgb 15.4 (14.0-18.0) g/dL Hct 42.1 (40.0-54.0) % MCV 89.2 (80-100) fL MCH 32.6 (27.0-34.0) pg MCHC 36.6 H (33.0-35.0) g/dL Plt Count 86 L D (150-450) 10^3/uL Neut % (Auto) 58.7 (42.2-75.2) % Lymph % (Auto) 20.8 (20.5-50.1) % Piatt % (Auto) 19.0 H (2-8) % Eos % (Auto) 0.4 L (1.0-3.0) % Baso % (Auto) 1.1 H (0.0-1.0) % PT 10.5 (9.0-12.0) SEC INR 1.0 (0.9-1.2) D-Dimer, Quantitative (0-400) ng/mL Sodium (136-145) mmol/L Potassium (3.5-5.1) mmol/L Chloride (98-107) mmol/L Carbon Dioxide (21-32) mmol/L Anion Gap (7-13) mEq/L BUN (7-18) mg/dL Creatinine (0.70-1.30) mg/dL Est Cr Clr Drug Dosing mL/min Estimated GFR (MDRD) BUN/Creatinine Ratio (No establ ref range) Glucose (70-99) mg/dL Calcium (8.5-10.1) mg/dL Magnesium (1.8-2.4) mg/dL Total Bilirubin (0.2-1.0) mg/dL AST (15-37) U/L ALT (16-63) U/L Alkaline Phosphatase (46-116) U/L Creatine Kinase (39-308) U/L Troponin I High Sens (<=76) pg/mL Total Protein (6.4-8.2) g/dL Albumin (3.4-5.0) g/dL Globulin Albumin/Globulin Ratio Triglycerides (0-149) mg/dL Cholesterol (0-199) mg/dL LDL Cholesterol, Calc (0-100) mg/dL HDL Cholesterol (40-59) mg/dL Amylase (25-115) U/L Lipase (73-393) U/L Free T4 (0.76-1.46) ng/dL TSH, Ultra Sensitive (0.36-3.74) uIU/mL Ethyl Alcohol (0) mg/dL Ketones SARS-CoV-2 RNA (BELINDA) Negative (NEGATIVE) 12/15/20 12/15/20 12/15/20 Range/Units 18:41 18:41 18:41 WBC (5.0-10.0) 10^3/uL RBC (4.6-6.2) 10^6/uL Hgb (14.0-18.0) g/dL Hct (40.0-54.0) % MCV (80-100) fL MCH (27.0-34.0) pg MCHC (33.0-35.0) g/dL Plt Count (150-450) 10^3/uL Neut % (Auto) (42.2-75.2) % Lymph % (Auto) (20.5-50.1) % Piatt % (Auto) (2-8) % Eos % (Auto) (1.0-3.0) % Baso % (Auto) (0.0-1.0) % PT (9.0-12.0) SEC INR (0.9-1.2) D-Dimer, Quantitative 1500 H (0-400) ng/mL Sodium 125 L D (136-145) mmol/L Potassium 2.5 L (3.5-5.1) mmol/L Chloride 86 L D (98-107) mmol/L Carbon Dioxide 22 (21-32) mmol/L Anion Gap 19.5 H (7-13) mEq/L BUN 4 L (7-18) mg/dL Creatinine 0.81 (0.70-1.30) mg/dL Est Cr Clr Drug Dosing 97.35 mL/min Estimated GFR (MDRD) > 60 BUN/Creatinine Ratio 4.9 (No establ ref range) Glucose 291 H (70-99) mg/dL Calcium 7.7 L (8.5-10.1) mg/dL Magnesium 1.9 (1.8-2.4) mg/dL Total Bilirubin 2.8 H (0.2-1.0) mg/dL AST 252 H (15-37) U/L ALT 166 H (16-63) U/L Alkaline Phosphatase 200 H (46-116) U/L Creatine Kinase 170 (39-308) U/L Troponin I High Sens 20 (<=76) pg/mL Total Protein 7.2 (6.4-8.2) g/dL Albumin 2.9 L (3.4-5.0) g/dL Globulin 4.3 Albumin/Globulin Ratio 0.67 Triglycerides (0-149) mg/dL Cholesterol (0-199) mg/dL LDL Cholesterol, Calc (0-100) mg/dL HDL Cholesterol (40-59) mg/dL Amylase 57 (25-115) U/L Lipase 251 (73-393) U/L Free T4 (0.76-1.46) ng/dL TSH, Ultra Sensitive (0.36-3.74) uIU/mL Ethyl Alcohol 232 (0) mg/dL Ketones SARS-CoV-2 RNA (BELINDA) (NEGATIVE) 12/15/20 12/15/20 12/15/20 Range/Units 18:41 18:41 23:59 WBC (5.0-10.0) 10^3/uL RBC (4.6-6.2) 10^6/uL Hgb (14.0-18.0) g/dL Hct (40.0-54.0) % MCV (80-100) fL MCH (27.0-34.0) pg MCHC (33.0-35.0) g/dL Plt Count (150-450) 10^3/uL Neut % (Auto) (42.2-75.2) % Lymph % (Auto) (20.5-50.1) % Piatt % (Auto) (2-8) % Eos % (Auto) (1.0-3.0) % Baso % (Auto) (0.0-1.0) % PT (9.0-12.0) SEC INR (0.9-1.2) D-Dimer, Quantitative (0-400) ng/mL Sodium (136-145) mmol/L Potassium (3.5-5.1) mmol/L Chloride (98-107) mmol/L Carbon Dioxide (21-32) mmol/L Anion Gap (7-13) mEq/L BUN (7-18) mg/dL Creatinine (0.70-1.30) mg/dL Est Cr Clr Drug Dosing mL/min Estimated GFR (MDRD) BUN/Creatinine Ratio (No establ ref range) Glucose (70-99) mg/dL Calcium (8.5-10.1) mg/dL Magnesium (1.8-2.4) mg/dL Total Bilirubin (0.2-1.0) mg/dL AST (15-37) U/L ALT (16-63) U/L Alkaline Phosphatase (46-116) U/L Creatine Kinase (39-308) U/L Troponin I High Sens 18 (<=76) pg/mL Total Protein (6.4-8.2) g/dL Albumin (3.4-5.0) g/dL Globulin Albumin/Globulin Ratio Triglycerides (0-149) mg/dL Cholesterol (0-199) mg/dL LDL Cholesterol, Calc (0-100) mg/dL HDL Cholesterol (40-59) mg/dL Amylase (25-115) U/L Lipase (73-393) U/L Free T4 1.24 (0.76-1.46) ng/dL TSH, Ultra Sensitive 0.85 (0.36-3.74) uIU/mL Ethyl Alcohol (0) mg/dL Ketones Small-20 mg/dl SARS-CoV-2 RNA (BELINDA) (NEGATIVE) 12/16/20 12/16/20 12/16/20 Range/Units 06:10 06:10 06:10 WBC 4.9 L (5.0-10.0) 10^3/uL RBC 3.91 L (4.6-6.2) 10^6/uL Hgb 12.8 L D (14.0-18.0) g/dL Hct 36.2 L (40.0-54.0) % MCV 92.6 D (80-100) fL MCH 32.7 (27.0-34.0) pg MCHC 35.4 H (33.0-35.0) g/dL Plt Count 71 L (150-450) 10^3/uL Neut % (Auto) 84.7 H (42.2-75.2) % Lymph % (Auto) 5.9 L (20.5-50.1) % Piatt % (Auto) 8.4 H (2-8) % Eos % (Auto) 0.6 L (1.0-3.0) % Baso % (Auto) 0.4 (0.0-1.0) % PT 10.5 (9.0-12.0) SEC INR 1.0 (0.9-1.2) D-Dimer, Quantitative (0-400) ng/mL Sodium 129 L (136-145) mmol/L Potassium 3.0 L (3.5-5.1) mmol/L Chloride 89 L (98-107) mmol/L Carbon Dioxide 26 (21-32) mmol/L Anion Gap 17.0 H (7-13) mEq/L BUN 5 L (7-18) mg/dL Creatinine 0.72 (0.70-1.30) mg/dL Est Cr Clr Drug Dosing 109.51 mL/min Estimated GFR (MDRD) > 60 BUN/Creatinine Ratio 6.9 (No establ ref range) Glucose 220 H (70-99) mg/dL Calcium 7.3 L (8.5-10.1) mg/dL Magnesium (1.8-2.4) mg/dL Total Bilirubin 2.9 H (0.2-1.0) mg/dL AST 288 H (15-37) U/L ALT 162 H (16-63) U/L Alkaline Phosphatase 178 H (46-116) U/L Creatine Kinase (39-308) U/L Troponin I High Sens 15 (<=76) pg/mL Total Protein 5.9 L (6.4-8.2) g/dL Albumin 2.4 L (3.4-5.0) g/dL Globulin 3.5 Albumin/Globulin Ratio 0.69 Triglycerides 87 (0-149) mg/dL Cholesterol 196 (0-199) mg/dL LDL Cholesterol, Calc 100 (0-100) mg/dL HDL Cholesterol 79 H (40-59) mg/dL Amylase (25-115) U/L Lipase (73-393) U/L Free T4 (0.76-1.46) ng/dL TSH, Ultra Sensitive (0.36-3.74) uIU/mL Ethyl Alcohol (0) mg/dL Ketones SARS-CoV-2 RNA (BELINDA) (NEGATIVE) Med Orders - Current: Current Medications Aspirin (Aspirin 81 Mg Tab.Ec) 81 mg PO DAILY [facility] Last Admin: 12/15/20 23:04 Dose: 81 mg Documented by: Carvedilol (Carvedilol 3.125 Mg Tab) 3.125 mg PO BIDMEALS [facility] Last Admin: 12/15/20 23:04 Dose: 3.125 mg Documented by: Clopidogrel Bisulfate (Clopidogrel 75 Mg Tab) 75 mg PO DAILY [facility] Last Admin: 12/15/20 23:04 Dose: 75 mg Documented by: Cyanocobalamin (Cyanocobalamin (Vitamin B12) 1,000 Mcg Tab) 1,000 mcg PO DAILY [facility] Dextrose/Water (50% Dextrose In Water 50 Ml Syringe) 50 ml IVPUSH Q15M PRN PRN Reason: Hypoglycemia Folic Acid (Folic Acid 1 Mg Tab) 1 mg PO DAILY [facility] Glucagon (Glucagon,Human Recombinant 1 Mg Vial) 1 mg IM Q15M PRN PRN Reason: Hypoglycemia Sodium Chloride (Normal Saline) 1,000 mls @ 75 mls/hr IV ASDIRECTED [facility] Last Admin: 12/15/20 22:35 Dose: 75 mls/hr Documented by: Insulin Human Lispro (Insulin Lispro 100 Units/Ml 3 Ml Vial) 0 unit SUBCUT WITHMEALSANDBED [facility]; Protocol Isosorbide Mononitrate (Isosorbide Mononitrate 60 Mg Tab.Er) 60 mg PO ACBREAKFAST [facility] Last Admin: 12/16/20 07:12 Dose: Not Given Documented by: Lisinopril (Lisinopril 5 Mg Tab) 5 mg PO DAILY [facility] Lorazepam (Lorazepam 2 Mg/Ml Sdv) 1 - 3 mg IV ASDIRECTED PRN; Protocol PRN Reason: alcohol withdrawal Last Admin: 12/16/20 01:20 Dose: 2 mg Documented by: Metformin HCl (Metformin 500 Mg Tab) 500 mg PO WITHBREAKFAST [facility] Multivitamins/Minerals (Multivitamins, Therapeutic With Minerals Tab) 1 tab PO WITHBREAKFAST [facility] Ondansetron HCl (Ondansetron 4 Mg/2 Ml Sdv) 4 mg IVPUSH Q4H PRN PRN Reason: Nausea/Vomiting Sertraline HCl (Sertraline 50 Mg Tab) 25 mg PO BEDTIME [facility] Sodium Chloride (Sodium Chloride 0.9% 10 Ml Syringe) 10 ml FLUSH ASDIRECTED PRN PRN Reason: Keep Vein Open Thiamine HCl (Thiamine 100 Mg Tab) 100 mg PO BEDTIME [facility] Discontinued Medications Potassium Chloride 10 meq/ (Premix) 100 mls @ 100 mls/hr IV ONETIME ONE Stop: 12/15/20 20:23 Last Admin: 12/15/20 19:35 Dose: 100 mls/hr Documented by: Sodium Chloride (Normal Saline) 1,000 mls @ 100 mls/hr IV .BOLUS ONE Stop: 12/16/20 05:23 Last Admin: 12/15/20 19:33 Dose: 100 mls/hr Documented by: Iopamidol (Iopamidol 755 Mg/Ml 100 Ml Bottle) 100 ml IVPUSH ONETIME ONE Stop: 12/15/20 19:28 Last Admin: 12/15/20 20:19 Dose: 78 ml Documented by: Lorazepam (Lorazepam 2 Mg/Ml Sdv) 1 mg IVPUSH ONETIME ONE Stop: 12/15/20 19:05 Last Admin: 12/15/20 19:12 Dose: 1 mg Documented by: Ondansetron HCl (Ondansetron 4 Mg/2 Ml Sdv) 4 mg IVPUSH ONETIME ONE Stop: 12/15/20 19:05 Last Admin: 12/15/20 19:11 Dose: 4 mg Documented by: Potassium Chloride (Potassium Chloride 10 Meq Tab.Er) 40 meq PO Q2H [facility] Stop: 12/16/20 02:31 Last Admin: 12/16/20 07:11 Dose: Not Given Documented by: - Exam General: Alert, Oriented HEENT: Pupils Equal, Pupils Reactive, EOMI, Mucous Membr. Moist/[place] Neck: Supple Lungs: Clear to Auscultation, Normal Respiratory Effort Cardiovascular: Regular Rate, Regular Rhythm GI/Abdominal Exam: Normal Bowel Sounds, Soft, Non-Tender, No Organomegaly, No Distention, No Abnormal Bruit, No Mass, Pelvis Stable Extremities: Normal Inspection, Normal Range of Motion, Non-Tender, No Pedal Edema, Normal Capillary Refill Wound/Incisions: Healing Well Neurological: No New Focal Deficit Psy/Mental Status: Alert, Normal Affect, Normal Mood - Patient Data Lab Results Last 24 hrs: Laboratory Results - last 24 hr 12/15/20 12/15/20 12/15/20 Range/Units 18:36 18:41 18:41 WBC 2.7 L (5.0-10.0) 10^3/uL RBC 4.72 (4.6-6.2) 10^6/uL Hgb 15.4 (14.0-18.0) g/dL Hct 42.1 (40.0-54.0) % MCV 89.2 (80-100) fL MCH 32.6 (27.0-34.0) pg MCHC 36.6 H (33.0-35.0) g/dL Plt Count 86 L D (150-450) 10^3/uL Neut % (Auto) 58.7 (42.2-75.2) % Lymph % (Auto) 20.8 (20.5-50.1) % Piatt % (Auto) 19.0 H (2-8) % Eos % (Auto) 0.4 L (1.0-3.0) % Baso % (Auto) 1.1 H (0.0-1.0) % PT 10.5 (9.0-12.0) SEC INR 1.0 (0.9-1.2) D-Dimer, Quantitative (0-400) ng/mL Sodium (136-145) mmol/L Potassium (3.5-5.1) mmol/L Chloride (98-107) mmol/L Carbon Dioxide (21-32) mmol/L Anion Gap (7-13) mEq/L BUN (7-18) mg/dL Creatinine (0.70-1.30) mg/dL Est Cr Clr Drug Dosing mL/min Estimated GFR (MDRD) BUN/Creatinine Ratio (No establ ref range) Glucose (70-99) mg/dL Calcium (8.5-10.1) mg/dL Magnesium (1.8-2.4) mg/dL Total Bilirubin (0.2-1.0) mg/dL AST (15-37) U/L ALT (16-63) U/L Alkaline Phosphatase (46-116) U/L Creatine Kinase (39-308) U/L Troponin I High Sens (<=76) pg/mL Total Protein (6.4-8.2) g/dL Albumin (3.4-5.0) g/dL Globulin Albumin/Globulin Ratio Triglycerides (0-149) mg/dL Cholesterol (0-199) mg/dL LDL Cholesterol, Calc (0-100) mg/dL HDL Cholesterol (40-59) mg/dL Amylase (25-115) U/L Lipase (73-393) U/L Free T4 (0.76-1.46) ng/dL TSH, Ultra Sensitive (0.36-3.74) uIU/mL Ethyl Alcohol (0) mg/dL Ketones SARS-CoV-2 RNA (BELINDA) Negative (NEGATIVE) 12/15/20 12/15/20 12/15/20 Range/Units 18:41 18:41 18:41 WBC (5.0-10.0) 10^3/uL RBC (4.6-6.2) 10^6/uL Hgb (14.0-18.0) g/dL Hct (40.0-54.0) % MCV (80-100) fL MCH (27.0-34.0) pg MCHC (33.0-35.0) g/dL Plt Count (150-450) 10^3/uL Neut % (Auto) (42.2-75.2) % Lymph % (Auto) (20.5-50.1) % Piatt % (Auto) (2-8) % Eos % (Auto) (1.0-3.0) % Baso % (Auto) (0.0-1.0) % PT (9.0-12.0) SEC INR (0.9-1.2) D-Dimer, Quantitative 1500 H (0-400) ng/mL Sodium 125 L D (136-145) mmol/L Potassium 2.5 L (3.5-5.1) mmol/L Chloride 86 L D (98-107) mmol/L Carbon Dioxide 22 (21-32) mmol/L Anion Gap 19.5 H (7-13) mEq/L BUN 4 L (7-18) mg/dL Creatinine 0.81 (0.70-1.30) mg/dL Est Cr Clr Drug Dosing 97.35 mL/min Estimated GFR (MDRD) > 60 BUN/Creatinine Ratio 4.9 (No establ ref range) Glucose 291 H (70-99) mg/dL Calcium 7.7 L (8.5-10.1) mg/dL Magnesium 1.9 (1.8-2.4) mg/dL Total Bilirubin 2.8 H (0.2-1.0) mg/dL AST 252 H (15-37) U/L ALT 166 H (16-63) U/L Alkaline Phosphatase 200 H (46-116) U/L Creatine Kinase 170 (39-308) U/L Troponin I High Sens 20 (<=76) pg/mL Total Protein 7.2 (6.4-8.2) g/dL Albumin 2.9 L (3.4-5.0) g/dL Globulin 4.3 Albumin/Globulin Ratio 0.67 Triglycerides (0-149) mg/dL Cholesterol (0-199) mg/dL LDL Cholesterol, Calc (0-100) mg/dL HDL Cholesterol (40-59) mg/dL Amylase 57 (25-115) U/L Lipase 251 (73-393) U/L Free T4 (0.76-1.46) ng/dL TSH, Ultra Sensitive (0.36-3.74) uIU/mL Ethyl Alcohol 232 (0) mg/dL Ketones SARS-CoV-2 RNA (BELINDA) (NEGATIVE) 12/15/20 12/15/20 12/15/20 Range/Units 18:41 18:41 23:59 WBC (5.0-10.0) 10^3/uL RBC (4.6-6.2) 10^6/uL Hgb (14.0-18.0) g/dL Hct (40.0-54.0) % MCV (80-100) fL MCH (27.0-34.0) pg MCHC (33.0-35.0) g/dL Plt Count (150-450) 10^3/uL Neut % (Auto) (42.2-75.2) % Lymph % (Auto) (20.5-50.1) % Piatt % (Auto) (2-8) % Eos % (Auto) (1.0-3.0) % Baso % (Auto) (0.0-1.0) % PT (9.0-12.0) SEC INR (0.9-1.2) D-Dimer, Quantitative (0-400) ng/mL Sodium (136-145) mmol/L Potassium (3.5-5.1) mmol/L Chloride (98-107) mmol/L Carbon Dioxide (21-32) mmol/L Anion Gap (7-13) mEq/L BUN (7-18) mg/dL Creatinine (0.70-1.30) mg/dL Est Cr Clr Drug Dosing mL/min Estimated GFR (MDRD) BUN/Creatinine Ratio (No establ ref range) Glucose (70-99) mg/dL Calcium (8.5-10.1) mg/dL Magnesium (1.8-2.4) mg/dL Total Bilirubin (0.2-1.0) mg/dL AST (15-37) U/L ALT (16-63) U/L Alkaline Phosphatase (46-116) U/L Creatine Kinase (39-308) U/L Troponin I High Sens 18 (<=76) pg/mL Total Protein (6.4-8.2) g/dL Albumin (3.4-5.0) g/dL Globulin Albumin/Globulin Ratio Triglycerides (0-149) mg/dL Cholesterol (0-199) mg/dL LDL Cholesterol, Calc (0-100) mg/dL HDL Cholesterol (40-59) mg/dL Amylase (25-115) U/L Lipase (73-393) U/L Free T4 1.24 (0.76-1.46) ng/dL TSH, Ultra Sensitive 0.85 (0.36-3.74) uIU/mL Ethyl Alcohol (0) mg/dL Ketones Small-20 mg/dl SARS-CoV-2 RNA (BELINDA) (NEGATIVE) 12/16/20 12/16/20 12/16/20 Range/Units 06:10 06:10 06:10 WBC 4.9 L (5.0-10.0) 10^3/uL RBC 3.91 L (4.6-6.2) 10^6/uL Hgb 12.8 L D (14.0-18.0) g/dL Hct 36.2 L (40.0-54.0) % MCV 92.6 D (80-100) fL MCH 32.7 (27.0-34.0) pg MCHC 35.4 H (33.0-35.0) g/dL Plt Count 71 L (150-450) 10^3/uL Neut % (Auto) 84.7 H (42.2-75.2) % Lymph % (Auto) 5.9 L (20.5-50.1) % Piatt % (Auto) 8.4 H (2-8) % Eos % (Auto) 0.6 L (1.0-3.0) % Baso % (Auto) 0.4 (0.0-1.0) % PT 10.5 (9.0-12.0) SEC INR 1.0 (0.9-1.2) D-Dimer, Quantitative (0-400) ng/mL Sodium 129 L (136-145) mmol/L Potassium 3.0 L (3.5-5.1) mmol/L Chloride 89 L (98-107) mmol/L Carbon Dioxide 26 (21-32) mmol/L Anion Gap 17.0 H (7-13) mEq/L BUN 5 L (7-18) mg/dL Creatinine 0.72 (0.70-1.30) mg/dL Est Cr Clr Drug Dosing 109.51 mL/min Estimated GFR (MDRD) > 60 BUN/Creatinine Ratio 6.9 (No establ ref range) Glucose 220 H (70-99) mg/dL Calcium 7.3 L (8.5-10.1) mg/dL Magnesium (1.8-2.4) mg/dL Total Bilirubin 2.9 H (0.2-1.0) mg/dL AST 288 H (15-37) U/L ALT 162 H (16-63) U/L Alkaline Phosphatase 178 H (46-116) U/L Creatine Kinase (39-308) U/L Troponin I High Sens 15 (<=76) pg/mL Total Protein 5.9 L (6.4-8.2) g/dL Albumin 2.4 L (3.4-5.0) g/dL Globulin 3.5 Albumin/Globulin Ratio 0.69 Triglycerides 87 (0-149) mg/dL Cholesterol 196 (0-199) mg/dL LDL Cholesterol, Calc 100 (0-100) mg/dL HDL Cholesterol 79 H (40-59) mg/dL Amylase (25-115) U/L Lipase (73-393) U/L Free T4 (0.76-1.46) ng/dL TSH, Ultra Sensitive (0.36-3.74) uIU/mL Ethyl Alcohol (0) mg/dL Ketones SARS-CoV-2 RNA (BELINDA) (NEGATIVE) Result Diagrams: 12/16/20 06:10 12/16/20 06:10 Sepsis Event Note - Evaluation Sepsis Screening Result: No Definite Risk - Focused Exam Vital Signs: Vital Signs Temp Pulse Pulse Resp BP BP Pulse Ox 12/15/20 23:04 78 136/79 12/15/20 22:14 97.8 F 105 H 16 139/67 97 - Problem List Review Problem List Initiated/Reviewed/Updated: Yes - My Orders Last 24 Hours: My Active Orders 12/15/20 Dinner Consistent Carbohydrate Diet [DIET] 12/15/20 22:14 Patient Status [ADT] Routine Blood Glucose Check, Bedside [RC] WITHMEALSANDBED Up With Assistance [RC] ASDIRECTED Vital Signs [RC] 00,04,08,12,16,20 Consult to Case Management/Automatic Outsole Cutter [CONS] Routine Ondansetron [Zofran] 4 mg IVPUSH Q4H PRN Sodium Chloride 0.9% [Saline Flush] 10 ml FLUSH ASDIRECTED PRN Peripheral IV Insertion Adult [OM.PC] Routine Resuscitation Status Routine 12/15/20 22:15 Sodium Chloride 0.9% [Normal Saline] 1,000 ml IV ASDIRECTED Sequential Compression Device [OM.PC] Per Unit Routine 12/15/20 22:16 Antiembolic Devices [RC] 08,20 Peripheral IV Care [RC] Seizure Precautions [OM.PC] Routine 12/15/20 22:17 Aspiration Precautions [RC] ASDIRECTED Notify Provider [RC] PRN LORazepam [Ativan] 1 - 3 mg IV ASDIRECTED PRN Seizure Precautions [OM.PC] Stat 12/15/20 22:19 Telemetry Monitoring [Cardiac Monitoring] [RC] ,20 12/15/20 22:21 Dextrose 50% in Water 50 ml IVPUSH Q15M PRN Glucagon,Human Recombinant [GlucaGen] 1 mg IM Q15M PRN 12/15/20 22:30 Aspirin [Halfprin] 81 mg PO DAILY Clopidogrel [Plavix] 75 mg PO DAILY carvediloL [Coreg] 3.125 mg PO BIDMEALS 12/15/20 23:00 Isosorbide Mononitrate [Imdur] 60 mg PO ACBREAKFAST 12/16/20 06:00 EKG 12 Lead [EKG Documentation Completion] [RC] ROUTINE 12/16/20 07:15 Potassium Chloride [Klor-Con 10] 40 meq PO Q2H 12/16/20 08:00 Insulin Lispro [HumaLOG] See Protocol SUBCUT WITHMEALSANDBED Multivitamins/Minerals [Vitamins and Minerals] 1 tab PO WITHBREAKFAST metFORMIN [Glucophage] 500 mg PO WITHBREAKFAST 12/16/20 09:00 Cyanocobalamin (Vitamin B12) [Vitamin B12] 1,000 mcg PO DAILY Folic Acid 1 mg PO DAILY lisinopriL [Prinivil] 5 mg PO DAILY 12/16/20 21:00 Sertraline [Zoloft] 25 mg PO BEDTIME Thiamine [Vitamin B-1] 100 mg PO BEDTIME 12/17/20 05:00 CBC WITH AUTO DIFF [HEME] Routine COMPREHENSIVE METABOLIC PN,CMP [CHEM] Routine - Plan Plan:: Chest pain, rule out ACS. Will monitor patient on telemetry and check serial enzymes and check his age and free T4. Magnesium level within normal notes. In the morning will check fasting lipid panel recheck EKG. Aspirin 81 mg p.o. daily plus Plavix and 5 mg p.o. daily plus Coreg 3.25 mg p.o. twice daily plus Imdur 60 mg p.o. daily. No statin at this time due to transaminitis Medical noncompliance. The patient will be counseled regarding medical compliance Alcohol abuse with alcohol withdrawal. Seizure precautions. IV as needed Ativan per [facility] protocol. Vitamin B12 1000 m P daily plus thiamine 100 mg p.o. daily plus folic acid 1 mg p.o. daily plus multivitamin 1 tab p.o. daily Transaminitis, chronic. Will monitor LFTs periodically with CMP Hypokalemia. Will monitor potassium levels intermittently and supplement as necessary. Telemetry monitoring Hyponatremia. Will monitor sodium levels intermittently. IV normal saline 75 mils per hour Hepatic steatosis Anemia. Will monitor hemoglobin intermittently Thrombocytopenia, likely sequelae of history of alcohol use. Monitor platelet count intermittently Coronary artery disease, status post LA, status post stent. Coreg 3.25 mg p.o. twice daily plus aspirin 81 mg p.o. daily plus Plavix and 5 mg p.o. daily plus Imdur 60 mg p.o. daily. No statin due to transaminitis Diabetes. Will check fasting glucose before every meal and at bedtime and provide some sliding scale plus Metformin 5 mg p.o. daily History gastritis Hyperlipidemia. Will check fasting lipid panel Hypertension. Coreg 3.25 mg p.o. twice daily plus Imdur 60 mg p.o. daily plus lisinopril 5 mg p.o. daily Obesity. Patient be counseled regarding lifestyle education Depression. Zoloft 25 mg p.o. nightly Angina. Imdur 60 mg p.o. daily History of pancreatitis, likely sequelae of history of alcohol use Anxiety Depression History of suicidal ideation History of microscopic hematuria. Outpatient follow-up with urology upon discharge Neuropathy BPH History of gastrointestinal bleed Esophageal varices Poor dentition. Outpatient follow-up with dentistry upon discharge DVT prophylaxis. Bilateral CD Disposition: Anticipate discharge in 48 to 72 hours, however this is entirely dependent on patient's alcohol withdrawal
[2020-12-16] MEDS: Ondansetron 4 MG/2 ML SDV IVPUSH PRN ×2 (07:49→16:28)
[2020-12-16] MEDS: Carvedilol 3.125 MG Tab PO SCH ×2 (09:07→17:47)
[2020-12-16] MEDS: Multivitamins, Therapeutic with Minerals Tab PO SCH (09:07)
[2020-12-16] MEDS: metFORMIN 500 MG Tab PO SCH (09:08)
[2020-12-16] MEDS: Folic Acid 1 MG Tab PO SCH (09:08)
[2020-12-16] MEDS: Cyanocobalamin (Vitamin B12) 1,000 MCG Tab PO SCH (09:09)
[2020-12-16] MEDS: Lisinopril 5 MG Tab PO SCH (09:09)
[2020-12-16] MEDS: Aspirin 81 MG Tab.EC PO SCH (09:09)
[2020-12-16] MEDS: Clopidogrel 75 MG Tab PO SCH (09:09)
[2020-12-16] MEDS: Insulin Lispro 100 Units/ML 3 ML Vial SUBCUT SCH ×4 (09:10→20:54)
[2020-12-16] MEDS: Sodium Chloride 0.9% 1,000 ML IV SCH (19:28)
[2020-12-16] MEDS: Sertraline 50 MG Tab PO SCH (20:10)
[2020-12-16] MEDS: Thiamine 100 MG Tab PO SCH (20:11)
[2020-12-17] MEDS: LORazepam 2 MG/ML SDV IV PRN ×5 (00:45→19:46)
[2020-12-17] MEDS: Isosorbide Mononitrate 60 MG Tab.ER PO SCH (05:17)
[2020-12-17] MEDS: traMADol 50 MG Tab PO PRN (05:18)
[2020-12-17 06:57] LABS: ANION GAP 13.8 mEq/L (7-13); CHLORIDE,CL 96 mmol/L (98-107); SODIUM,NA 132 mmol/L (136-145)
--- NOTE | 2020-12-17 07:37 | PCM.PN ---
- General Info Date of Service: 12/17/20 Subjective Update: The patient complains of mild abdominal pain in the epigastric region. Aside from this endorses no complaints. Overnight he denies fever, rigors, nausea, vomiting, cough, wheeze, chest pain, dyspnea, or any other constitutional complaints. I explained to the patient his current medical condition and plan of care and I have answered all of his questions - Review of Systems General: Reports: No Symptoms HEENT: Reports: No Symptoms Pulmonary: Reports: No Symptoms Cardiovascular: Reports: No Symptoms Gastrointestinal: Reports: Abdominal Pain Genitourinary: Reports: No Symptoms Musculoskeletal: Reports: No Symptoms Skin: Reports: No Symptoms Neurological: Reports: No Symptoms Psychiatric: Reports: No Symptoms - Patient Data Vitals - Most Recent: Last Vital Signs Temp 99.3 F 12/17/20 03:40 Pulse 86 12/17/20 03:40 Resp 20 12/17/20 03:40 BP 127/83 12/17/20 03:40 Pulse Ox 94 L 12/17/20 03:40 Weight - Most Recent: 223 lb 9.6 oz I&O - Last 24 Hours: Intake & Output 12/16/20 12/17/20 12/17/20 22:59 06:59 14:59 Intake Total 1553 200 Balance 1553 200 Lab Results Last 24 Hours: Laboratory Results - last 24 hr 12/16/20 12/16/20 12/16/20 Range/Units 08:05 11:52 17:02 WBC (5.0-10.0) 10^3/uL RBC (4.6-6.2) 10^6/uL Hgb (14.0-18.0) g/dL Hct (40.0-54.0) % MCV (80-100) fL MCH (27.0-34.0) pg MCHC (33.0-35.0) g/dL Plt Count (150-450) 10^3/uL Neut % (Auto) (42.2-75.2) % Lymph % (Auto) (20.5-50.1) % [place] % (Auto) (2-8) % Eos % (Auto) (1.0-3.0) % Baso % (Auto) (0.0-1.0) % Sodium (136-145) mmol/L Potassium (3.5-5.1) mmol/L Chloride (98-107) mmol/L Carbon Dioxide (21-32) mmol/L Anion Gap (7-13) mEq/L BUN (7-18) mg/dL Creatinine (0.70-1.30) mg/dL Est Cr Clr Drug Dosing mL/min Estimated GFR (MDRD) BUN/Creatinine Ratio (No establ ref range) Glucose (70-99) mg/dL POC Glucose 213 H 199 H 217 H (70-99) mg/dL Calcium (8.5-10.1) mg/dL Total Bilirubin (0.2-1.0) mg/dL AST (15-37) U/L ALT (16-63) U/L Alkaline Phosphatase (46-116) U/L Total Protein (6.4-8.2) g/dL Albumin (3.4-5.0) g/dL Globulin Albumin/Globulin Ratio 12/16/20 12/17/20 12/17/20 Range/Units 20:34 05:50 05:50 WBC 3.4 L (5.0-10.0) 10^3/uL RBC 3.73 L (4.6-6.2) 10^6/uL Hgb 12.3 L (14.0-18.0) g/dL Hct 35.2 L (40.0-54.0) % MCV 94.4 (80-100) fL MCH 33.0 (27.0-34.0) pg MCHC 34.9 (33.0-35.0) g/dL Plt Count 78 L (150-450) 10^3/uL Neut % (Auto) 76.5 H (42.2-75.2) % Lymph % (Auto) 10.1 L (20.5-50.1) % [place] % (Auto) 9.5 H (2-8) % Eos % (Auto) 3.3 H (1.0-3.0) % Baso % (Auto) 0.6 (0.0-1.0) % Sodium 132 L (136-145) mmol/L Potassium 3.8 (3.5-5.1) mmol/L Chloride 96 L (98-107) mmol/L Carbon Dioxide 26 (21-32) mmol/L Anion Gap 13.8 H (7-13) mEq/L BUN 8 (7-18) mg/dL Creatinine 0.66 L (0.70-1.30) mg/dL Est Cr Clr Drug Dosing 119.47 mL/min Estimated GFR (MDRD) > 60 BUN/Creatinine Ratio 12.1 (No establ ref range) Glucose 203 H (70-99) mg/dL POC Glucose 177 H (70-99) mg/dL Calcium 7.7 L (8.5-10.1) mg/dL Total Bilirubin 3.5 H (0.2-1.0) mg/dL AST 570 H (15-37) U/L ALT 254 H (16-63) U/L Alkaline Phosphatase 173 H (46-116) U/L Total Protein 5.5 L (6.4-8.2) g/dL Albumin 2.3 L (3.4-5.0) g/dL Globulin 3.2 Albumin/Globulin Ratio 0.72 Med Orders - Current: Current Medications Aspirin (Aspirin 81 Mg Tab.Ec) 81 mg PO DAILY [facility] Last Admin: 12/16/20 09:09 Dose: 81 mg Documented by: Carvedilol (Carvedilol 3.125 Mg Tab) 3.125 mg PO BIDMEALS [facility] Last Admin: 12/16/20 17:47 Dose: Not Given Documented by: Clopidogrel Bisulfate (Clopidogrel 75 Mg Tab) 75 mg PO DAILY [facility] Last Admin: 12/16/20 09:09 Dose: 75 mg Documented by: Cyanocobalamin (Cyanocobalamin (Vitamin B12) 1,000 Mcg Tab) 1,000 mcg PO DAILY [facility] Last Admin: 12/16/20 09:09 Dose: 1,000 mcg Documented by: Dextrose/Water (50% Dextrose In Water 50 Ml Syringe) 50 ml IVPUSH Q15M PRN PRN Reason: Hypoglycemia Folic Acid (Folic Acid 1 Mg Tab) 1 mg PO DAILY [facility] Last Admin: 12/16/20 09:08 Dose: 1 mg Documented by: Glucagon (Glucagon,Human Recombinant 1 Mg Vial) 1 mg IM Q15M PRN PRN Reason: Hypoglycemia Sodium Chloride (Normal Saline) 1,000 mls @ 75 mls/hr IV ASDIRECTED [facility] Last Admin: 12/16/20 19:28 Dose: 75 mls/hr Documented by: Insulin Human Lispro (Insulin Lispro 100 Units/Ml 3 Ml Vial) 0 unit SUBCUT WITHMEALSANDBED [facility]; Protocol Last Admin: 12/16/20 20:54 Dose: 1 units Documented by: Isosorbide Mononitrate (Isosorbide Mononitrate 60 Mg Tab.Er) 60 mg PO ACB REAKFAST [facility] Last Admin: 12/17/20 05:17 Dose: 60 mg Documented by: Lisinopril (Lisinopril 5 Mg Tab) 5 mg PO DAILY [facility] Last Admin: 12/16/20 09:09 Dose: 5 mg Documented by: Lorazepam (Lorazepam 2 Mg/Ml Sdv) 1 - 3 mg IV ASDIRECTED PRN; Protocol PRN Reason: alcohol withdrawal Last Admin: 12/17/20 03:49 Dose: 3 mg Documented by: Metformin HCl (Metformin 500 Mg Tab) 500 mg PO WITHBREAKFAST [facility] Last Admin: 12/16/20 09:08 Dose: 500 mg Documented by: Multivitamins/Minerals (Multivitamins, Therapeutic With Minerals Tab) 1 tab PO WITHBREAKFAST [facility] Last Admin: 12/16/20 09:07 Dose: 1 tab Documented by: Ondansetron HCl (Ondansetron 4 Mg/2 Ml Sdv) 4 mg IVPUSH Q4H PRN PRN Reason: Nausea/Vomiting Last Admin: 12/16/20 16:28 Dose: 4 mg Documented by: Sertraline HCl (Sertraline 50 Mg Tab) 25 mg PO BEDTIME [facility] Last Admin: 12/16/20 20:10 Dose: 25 mg Documented by: Sodium Chloride (Sodium Chloride 0.9% 10 Ml Syringe) 10 ml FLUSH ASDIRECTED PRN PRN Reason: Keep Vein Open Thiamine HCl (Thiamine 100 Mg Tab) 100 mg PO BEDTIME [facility] Last Admin: 12/16/20 20:11 Dose: 100 mg Documented by: Tramadol HCl (Tramadol 50 Mg Tab) 100 mg PO Q8H PRN PRN Reason: Pain (severe 7-10) Last Admin: 12/17/20 05:18 Dose: 100 mg Documented by: Discontinued Medications Potassium Chloride 10 meq/ (Premix) 100 mls @ 100 mls/hr IV ONETIME ONE Stop: 12/15/20 20:23 Last Admin: 12/15/20 19:35 Dose: 100 mls/hr Documented by: Sodium Chloride (Normal Saline) 1,000 mls @ 100 mls/hr IV .BOLUS ONE Stop: 12/16/20 05:23 Last Admin: 12/15/20 19:33 Dose: 100 mls/hr Documented by: Iopamidol (Iopamidol 755 Mg/Ml 100 Ml Bottle) 100 ml IVPUSH ONETIME ONE Stop: 12/15/20 19:28 Last Admin: 12/15/20 20:19 Dose: 78 ml Documented by: Isosorbide Mononitrate (Isosorbide Mononitrate 60 Mg Tab.Er) 60 mg PO .STK-MED ONE Stop: 12/16/20 06:01 Lorazepam (Lorazepam 2 Mg/Ml Sdv) 1 mg IVPUSH ONETIME ONE Stop: 12/15/20 19:05 Last Admin: 12/15/20 19:12 Dose: 1 mg Documented by: Lorazepam (Lorazepam 2 Mg/Ml Sdv) 1 mg IV .STK-MED ONE Stop: 12/16/20 05:31 Ondansetron HCl (Ondansetron 4 Mg/2 Ml Sdv) 4 mg IVPUSH ONETIME ONE Stop: 12/15/20 19:05 Last Admin: 12/15/20 19:11 Dose: 4 mg Documented by: Potassium Chloride (Potassium Chloride 10 Meq Tab.Er) 40 meq PO Q2H [place] Stop: 12/16/20 02:31 Last Admin: 12/16/20 07:11 Dose: Not Given Documented by: Potassium Chloride (Potassium Chloride 10 Meq Tab.Er) 40 meq PO Q2H [place] Stop: 12/16/20 11:16 Last Admin: 12/16/20 12:00 Dose: 40 meq Documented by: Potassium Chloride (Potassium Chloride 10 Meq Tab.Er) 40 meq PO .STK-MED ONE Stop: 12/16/20 06:01 - Exam General: Alert, Oriented HEENT: Pupils Equal, Pupils Reactive, EOMI, Mucous Membr. Moist/[place] Neck: Supple Lungs: Clear to Auscultation, Normal Respiratory Effort Cardiovascular: Regular Rate, Regular Rhythm GI/Abdominal Exam: Normal Bowel Sounds, Soft, Non-Tender, No Organomegaly, No Distention, No Abnormal Bruit, No Mass, Pelvis Stable Extremities: Normal Inspection, Normal Range of Motion, Non-Tender, No Pedal Edema, Normal Capillary Refill Skin: Warm, Dry, Intact Wound/Incisions: Healing Well Neurological: No New Focal Deficit Psy/Mental Status: Alert, Normal Affect, Normal Mood - Patient Data Lab Results Last 24 hrs: Laboratory Results - last 24 hr 12/16/20 12/16/20 12/16/20 Range/Units 08:05 11:52 17:02 WBC (5.0-10.0) 10^3/uL RBC (4.6-6.2) 10^6/uL Hgb (14.0-18.0) g/dL Hct (40.0-54.0) % MCV (80-100) fL MCH (27.0-34.0) pg MCHC (33.0-35.0) g/dL Plt Count (150-450) 10^3/uL Neut % (Auto) (42.2-75.2) % Lymph % (Auto) (20.5-50.1) % [place] % (Auto) (2-8) % Eos % (Auto) (1.0-3.0) % Baso % (Auto) (0.0-1.0) % Sodium (136-145) mmol/L Potassium (3.5-5.1) mmol/L Chloride (98-107) mmol/L Carbon Dioxide (21-32) mmol/L Anion Gap (7-13) mEq/L BUN (7-18) mg/dL Creatinine (0.70-1.30) mg/dL Est Cr Clr Drug Dosing mL/min Estimated GFR (MDRD) BUN/Creatinine Ratio (No establ ref range) Glucose (70-99) mg/dL POC Glucose 213 H 199 H 217 H (70-99) mg/dL Calcium (8.5-10.1) mg/dL Total Bilirubin (0.2-1.0) mg/dL AST (15-37) U/L ALT (16-63) U/L Alkaline Phosphatase (46-116) U/L Total Protein (6.4-8.2) g/dL Albumin (3.4-5.0) g/dL Globulin Albumin/Globulin Ratio 12/16/20 12/17/20 12/17/20 Range/Units 20:34 05:50 05:50 WBC 3.4 L (5.0-10.0) 10^3/uL RBC 3.73 L (4.6-6.2) 10^6/uL Hgb 12.3 L (14.0-18.0) g/dL Hct 35.2 L (40.0-54.0) % MCV 94.4 (80-100) fL MCH 33.0 (27.0-34.0) pg MCHC 34.9 (33.0-35.0) g/dL Plt Count 78 L (150-450) 10^3/uL Neut % (Auto) 76.5 H (42.2-75.2) % Lymph % (Auto) 10.1 L (20.5-50.1) % [place] % (Auto) 9.5 H (2-8) % Eos % (Auto) 3.3 H (1.0-3.0) % Baso % (Auto) 0.6 (0.0-1.0) % Sodium 132 L (136-145) mmol/L Potassium 3.8 (3.5-5.1) mmol/L Chloride 96 L (98-107) mmol/L Carbon Dioxide 26 (21-32) mmol/L Anion Gap 13.8 H (7-13) mEq/L BUN 8 (7-18) mg/dL Creatinine 0.66 L (0.70-1.30) mg/dL Est Cr Clr Drug Dosing 119.47 mL/min Estimated GFR (MDRD) > 60 BUN/Creatinine Ratio 12.1 (No establ ref range) Glucose 203 H (70-99) mg/dL POC Glucose 177 H (70-99) mg/dL Calcium 7.7 L (8.5-10.1) mg/dL Total Bilirubin 3.5 H (0.2-1.0) mg/dL AST 570 H (15-37) U/L ALT 254 H (16-63) U/L Alkaline Phosphatase 173 H (46-116) U/L Total Protein 5.5 L (6.4-8.2) g/dL Albumin 2.3 L (3.4-5.0) g/dL Globulin 3.2 Albumin/Globulin Ratio 0.72 Result Diagrams: 12/17/20 05:50 12/17/20 05:50 Sepsis Event Note - Evaluation Sepsis Screening Result: No Definite Risk - Focused Exam Vital Signs: Vital Signs Temp Pulse Resp BP Pulse Ox 12/17/20 03:40 99.3 F 86 20 127/83 94 L 12/17/20 00:00 99.3 F 89 18 118/79 97 12/16/20 20:00 99.0 F 89 18 108/68 96 - Problem List Review Problem List Initiated/Reviewed/Updated: Yes - My Orders Last 24 Hours: My Active Orders 12/16/20 08:00 Insulin Lispro [HumaLOG] See Protocol SUBCUT WITHMEALSANDBED Multivitamins/Minerals [Vitamins and Minerals] 1 tab PO WITHBREAKFAST metFORMIN [Glucophage] 500 mg PO WITHBREAKFAST 12/16/20 09:00 Cyanocobalamin (Vitamin B12) [Vitamin B12] 1,000 mcg PO DAILY Folic Acid 1 mg PO DAILY lisinopriL [Prinivil] 5 mg PO DAILY 12/16/20 21:00 Sertraline [Zoloft] 25 mg PO BEDTIME Thiamine [Vitamin B-1] 100 mg PO BEDTIME 12/17/20 03:53 traMADol [Ultram] 100 mg PO Q8H PRN 12/17/20 07:33 Abdomen Ltd [US] Routine 12/18/20 05:00 CMP [COMPREHENSIVE METABOLIC PN,CMP] [CHEM] Routine INR,PT,PROTHROMBIN TIME [COAG] Routine - Plan Plan:: Chest pain, rule out ACS. Will monitor patient on telemetry and check serial enzymes and check his age and free T4. Magnesium level within normal notes. In the morning will check fasting lipid panel recheck EKG. Aspirin 81 mg p.o. daily plus Plavix and 5 mg p.o. daily plus Coreg 3.25 mg p.o. twice daily plus Imdur 60 mg p.o. daily. No statin at this time due to transaminitis Medical noncompliance. The patient will be counseled regarding medical compliance Alcohol abuse with alcohol withdrawal. Seizure precautions. IV as needed Ativan per [facility] protocol. Vitamin B12 1000 m P daily plus thiamine 100 mg p.o. daily plus folic acid 1 mg p.o. daily plus multivitamin 1 tab p.o. daily Transaminitis, chronic. Will monitor LFTs periodically with CMP Hypokalemia. Will monitor potassium levels intermittently and supplement as necessary. Telemetry monitoring Hyponatremia. Will monitor sodium levels intermittently. IV normal saline 75 mils per hour Hepatic steatosis Anemia. Will monitor hemoglobin intermittently Thrombocytopenia, likely sequelae of history of alcohol use. Monitor platelet count intermittently Coronary artery disease, status post [place], status post stent. Coreg 3.25 mg p.o. twice daily plus aspirin 81 mg p.o. daily plus Plavix and 5 mg p.o. daily plus Imdur 60 mg p.o. daily. No statin due to transaminitis Diabetes. Will check fasting glucose before every meal and at bedtime and provide some sliding scale plus Metformin 5 mg p.o. daily History gastritis Hyperlipidemia. Will check fasting lipid panel Hypertension. Coreg 3.25 mg p.o. twice daily plus Imdur 60 mg p.o. daily plus lisinopril 5 mg p.o. daily Obesity. Patient be counseled regarding lifestyle education Depression. Zoloft 25 mg p.o. nightly Angina. Imdur 60 mg p.o. daily History of pancreatitis, likely sequelae of history of alcohol use Anxiety Depression History of suicidal ideation History of microscopic hematuria. Outpatient follow-up with urology upon discharge Neuropathy BPH History of gastrointestinal bleed Esophageal varices Poor dentition. Outpatient follow-up with dentistry upon discharge DVT prophylaxis. Bilateral CD Disposition: Anticipate discharge in 48 to 72 hours, however this is entirely dependent on patient's alcohol withdrawal
[2020-12-17] MEDS: Clopidogrel 75 MG Tab PO SCH (08:30)
[2020-12-17] MEDS: Folic Acid 1 MG Tab PO SCH (08:30)
[2020-12-17] MEDS: Lisinopril 5 MG Tab PO SCH (08:31)
[2020-12-17] MEDS: Carvedilol 3.125 MG Tab PO SCH ×2 (08:31→17:23)
[2020-12-17] MEDS: Cyanocobalamin (Vitamin B12) 1,000 MCG Tab PO SCH (08:31)
[2020-12-17] MEDS: Aspirin 81 MG Tab.EC PO SCH (08:31)
[2020-12-17] MEDS: Multivitamins, Therapeutic with Minerals Tab PO SCH (08:31)
[2020-12-17] MEDS: Insulin Lispro 100 Units/ML 3 ML Vial SUBCUT SCH ×4 (08:31→21:32)
[2020-12-17] MEDS: metFORMIN 500 MG Tab PO SCH (08:31)
[2020-12-17] MEDS: Sodium Chloride 0.9% 1,000 ML IV SCH ×2 (08:52→21:59)
[2020-12-17] MEDS: Ondansetron 4 MG/2 ML SDV IVPUSH PRN (19:49)
[2020-12-17] MEDS: Sertraline 50 MG Tab PO SCH (21:33)
[2020-12-17] MEDS: Thiamine 100 MG Tab PO SCH (21:33)
[2020-12-18] MEDS: Ondansetron 4 MG/2 ML SDV IVPUSH PRN ×2 (02:45→11:05)
[2020-12-18] MEDS: LORazepam 2 MG/ML SDV IV PRN ×5 (02:48→15:15)
[2020-12-18] MEDS: Isosorbide Mononitrate 60 MG Tab.ER PO SCH (06:05)
[2020-12-18 07:10] LABS: ANION GAP 13.8 mEq/L (7-13); CHLORIDE,CL 98 mmol/L (98-107); SODIUM,NA 135 mmol/L (136-145)
--- NOTE | 2020-12-18 07:17 | PCM.PN ---
- General Info Date of Service: 12/18/20 - Review of Systems General: Reports: No Symptoms HEENT: Reports: No Symptoms Pulmonary: Reports: No Symptoms Cardiovascular: Reports: No Symptoms Gastrointestinal: Reports: No Symptoms Genitourinary: Reports: No Symptoms Musculoskeletal: Reports: No Symptoms Skin: Reports: No Symptoms Neurological: Reports: No Symptoms Psychiatric: Reports: No Symptoms - Patient Data Vitals - Most Recent: Last Vital Signs Temp 98.8 F 12/18/20 05:44 Pulse 86 12/18/20 05:44 Resp 18 12/18/20 05:44 BP 132/83 12/18/20 05:44 Pulse Ox 94 L 12/18/20 05:44 Weight - Most Recent: 223 lb 9.6 oz I&O - Last 24 Hours: Intake & Output 12/17/20 12/18/20 12/18/20 22:59 06:59 14:59 Intake Total 2174 400 Balance 2174 400 Lab Results Last 24 Hours: Laboratory Results - last 24 hr 12/17/20 12/17/20 12/17/20 Range/Units 08:00 11:41 16:35 PT (9.0-12.0) SEC INR (0.9-1.2) Sodium (136-145) mmol/L Potassium (3.5-5.1) mmol/L Chloride (98-107) mmol/L Carbon Dioxide (21-32) mmol/L Anion Gap (7-13) mEq/L BUN (7-18) mg/dL Creatinine (0.70-1.30) mg/dL Est Cr Clr Drug Dosing mL/min Estimated GFR (MDRD) BUN/Creatinine Ratio (No establ ref range) Glucose (70-99) mg/dL POC Glucose 186 H 197 H 184 H (70-99) mg/dL Calcium (8.5-10.1) mg/dL Total Bilirubin (0.2-1.0) mg/dL AST (15-37) U/L ALT (16-63) U/L Alkaline Phosphatase (46-116) U/L Total Protein (6.4-8.2) g/dL Albumin (3.4-5.0) g/dL Globulin Albumin/Globulin Ratio 12/17/20 12/18/20 12/18/20 Range/Units 21:07 06:15 06:15 PT 11.1 (9.0-12.0) SEC INR 1.1 (0.9-1.2) Sodium 135 L (136-145) mmol/L Potassium 3.8 (3.5-5.1) mmol/L Chloride 98 (98-107) mmol/L Carbon Dioxide 27 (21-32) mmol/L Anion Gap 13.8 H (7-13) mEq/L BUN 4 L (7-18) mg/dL Creatinine 0.71 (0.70-1.30) mg/dL Est Cr Clr Drug Dosing 111.06 mL/min Estimated GFR (MDRD) > 60 BUN/Creatinine Ratio 5.6 (No establ ref range) Glucose 176 H (70-99) mg/dL POC Glucose 204 H (70-99) mg/dL Calcium 7.3 L (8.5-10.1) mg/dL Total Bilirubin 2.8 H (0.2-1.0) mg/dL AST 332 H (15-37) U/L ALT 228 H (16-63) U/L Alkaline Phosphatase 169 H (46-116) U/L Total Protein 5.6 L (6.4-8.2) g/dL Albumin 2.2 L (3.4-5.0) g/dL Globulin 3.4 Albumin/Globulin Ratio 0.65 Med Orders - Current: Current Medications Aspirin (Aspirin 81 Mg Tab.Ec) 81 mg PO DAILY [facility] Last Admin: 12/17/20 08:31 Dose: 81 mg Documented by: Carvedilol (Carvedilol 3.125 Mg Tab) 3.125 mg PO BIDMEALS [facility] Last Admin: 12/17/20 17:23 Dose: 3.125 mg Documented by: Clopidogrel Bisulfate (Clopidogrel 75 Mg Tab) 75 mg PO DAILY [facility] Last Admin: 12/17/20 08:30 Dose: 75 mg Documented by: Cyanocobalamin (Cyanocobalamin (Vitamin B12) 1,000 Mcg Tab) 1,000 mcg PO DAILY [facility] Last Admin: 12/17/20 08:31 Dose: 1,000 mcg Documented by: Dextrose/Water (50% Dextrose In Water 50 Ml Syringe) 50 ml IVPUSH Q15M PRN PRN Reason: Hypoglycemia Folic Acid (Folic Acid 1 Mg Tab) 1 mg PO DAILY [facility] Last Admin: 12/17/20 08:30 Dose: 1 mg Documented by: Glucagon (Glucagon,Human Recombinant 1 Mg Vial) 1 mg IM Q15M PRN PRN Reason: Hypoglycemia Sodium Chloride (Normal Saline) 1,000 mls @ 75 mls/hr IV ASDIRECTED [facility] Last Admin: 12/17/20 21:59 Dose: 75 mls/hr Documented by: Insulin Human Lispro (Insulin Lispro 100 Units/Ml 3 Ml Vial) 0 unit SUBCUT WITHMEALSANDBED [facility]; Protocol Last Admin: 12/17/20 21:32 Dose: 2 units Documented by: Isosorbide Mononitrate (Isosorbide Mononitrate 60 Mg Tab.Er) 60 mg PO ACBREAKFAST [facility] Last Admin: 12/18/20 06:05 Dose: 60 mg Documented by: Lisinopril (Lisinopril 5 Mg Tab) 5 mg PO DAILY [facility] Last Admin: 12/17/20 08:31 Dose: 5 mg Documented by: Lorazepam (Lorazepam 2 Mg/Ml Sdv) 1 - 3 mg IV ASDIRECTED PRN; Protocol PRN Reason: alcohol withdrawal Last Admin: 12/18/20 06:05 Dose: 2 mg Documented by: Metformin HCl (Metformin 500 Mg Tab) 500 mg PO WITHBREAKFAST [facility] Last Admin: 12/17/20 08:31 Dose: 500 mg Documented by: Multivitamins/Minerals (Multivitamins, Therapeutic With Minerals Tab) 1 tab PO WITHBREAKFAST [facility] Last Admin: 12/17/20 08:31 Dose: 1 tab Documented by: Ondansetron HCl (Ondansetron 4 Mg/2 Ml Sdv) 4 mg IVPUSH Q4H PRN PRN Reason: Nausea/Vomiting Last Admin: 12/18/20 02:45 Dose: 4 mg Documented by: Sertraline HCl (Sertraline 50 Mg Tab) 25 mg PO BEDTIME [facility] Last Admin: 12/17/20 21:33 Dose: 25 mg Documented by: Sodium Chloride (Sodium Chloride 0.9% 10 Ml Syringe) 10 ml FLUSH ASDIRECTED PRN PRN Reason: Keep Vein Open Thiamine HCl (Thiamine 100 Mg Tab) 100 mg PO BEDTIME [facility] Last Admin: 12/17/20 21:33 Dose: 100 mg Documented by: Tramadol HCl (Tramadol 50 Mg Tab) 100 mg PO Q8H PRN PRN Reason: Pain (severe 7-10) Last Admin: 12/17/20 05:18 Dose: 100 mg Documented by: Discontinued Medications Potassium Chloride 10 meq/ (Premix) 100 mls @ 100 mls/hr IV ONETIME ONE Stop: 12/15/20 20:23 Last Admin: 12/15/20 19:35 Dose: 100 mls/hr Documented by: Sodium Chloride (Normal Saline) 1,000 mls @ 100 mls/hr IV .BOLUS ONE Stop: 12/16/20 05:23 Last Admin: 12/15/20 19:33 Dose: 100 mls/hr Documented by: Iopamidol (Iopamidol 755 Mg/Ml 100 Ml Bottle) 100 ml IVPUSH ONETIME ONE Stop: 12/15/20 19:28 Last Admin: 12/15/20 20:19 Dose: 78 ml Documented by: Isosorbide Mononitrate (Isosorbide Mononitrate 60 Mg Tab.Er) 60 mg PO .STK-MED ONE Stop: 12/16/20 06:01 Lorazepam (Lorazepam 2 Mg/Ml Sdv) 1 mg IVPUSH ONETIME ONE Stop: 12/15/20 19:05 Last Admin: 12/15/20 19:12 Dose: 1 mg Documented by: Lorazepam (Lorazepam 2 Mg/Ml Sdv) 1 mg IV .STK-MED ONE Stop: 12/16/20 05:31 Ondansetron HCl (Ondansetron 4 Mg/2 Ml Sdv) 4 mg IVPUSH ONETIME ONE Stop: 12/15/20 19:05 Last Admin: 12/15/20 19:11 Dose: 4 mg Documented by: Potassium Chloride (Potassium Chloride 10 Meq Tab.Er) 40 meq PO Q2H [facility] Stop: 12/16/20 02:31 Last Admin: 12/16/20 07:11 Dose: Not Given Documented by: Potassium Chloride (Potassium Chloride 10 Meq Tab.Er) 40 meq PO Q2H [facility] Stop: 12/16/20 11:16 Last Admin: 12/16/20 12:00 Dose: 40 meq Documented by: Potassium Chloride (Potassium Chloride 10 Meq Tab.Er) 40 meq PO .STK-MED ONE Stop: 12/16/20 06:01 - Exam General: Alert, Oriented HEENT: Pupils Equal, Pupils Reactive, EOMI, Mucous Membr. Moist/[place] Neck: Supple Lungs: Clear to Auscultation, Normal Respiratory Effort Cardiovascular: Regular Rate, Regular Rhythm Extremities: Normal Inspection, Normal Range of Motion, Non-Tender, No Pedal Edema, Normal Capillary Refill Skin: Warm, Dry, Intact Wound/Incisions: Healing Well Neurological: No New Focal Deficit Psy/Mental Status: Alert, Normal Affect, Normal Mood - Patient Data Lab Results Last 24 hrs: Laboratory Results - last 24 hr 12/17/20 12/17/20 12/17/20 Range/Units 08:00 11:41 16:35 PT (9.0-12.0) SEC INR (0.9-1.2) Sodium (136-145) mmol/L Potassium (3.5-5.1) mmol/L Chloride (98-107) mmol/L Carbon Dioxide (21-32) mmol/L Anion Gap (7-13) mEq/L BUN (7-18) mg/dL Creatinine (0.70-1.30) mg/dL Est Cr Clr Drug Dosing mL/min Estimated GFR (MDRD) BUN/Creatinine Ratio (No establ ref range) Glucose (70-99) mg/dL POC Glucose 186 H 197 H 184 H (70-99) mg/dL Calcium (8.5-10.1) mg/dL Total Bilirubin (0.2-1.0) mg/dL AST (15-37) U/L ALT (16-63) U/L Alkaline Phosphatase (46-116) U/L Total Protein (6.4-8.2) g/dL Albumin (3.4-5.0) g/dL Globulin Albumin/Globulin Ratio 12/17/20 12/18/20 12/18/20 Range/Units 21:07 06:15 06:15 PT 11.1 (9.0-12.0) SEC INR 1.1 (0.9-1.2) Sodium 135 L (136-145) mmol/L Potassium 3.8 (3.5-5.1) mmol/L Chloride 98 (98-107) mmol/L Carbon Dioxide 27 (21-32) mmol/L Anion Gap 13.8 H (7-13) mEq/L BUN 4 L (7-18) mg/dL Creatinine 0.71 (0.70-1.30) mg/dL Est Cr Clr Drug Dosing 111.06 mL/min Estimated GFR (MDRD) > 60 BUN/Creatinine Ratio 5.6 (No establ ref range) Glucose 176 H (70-99) mg/dL POC Glucose 204 H (70-99) mg/dL Calcium 7.3 L (8.5-10.1) mg/dL Total Bilirubin 2.8 H (0.2-1.0) mg/dL AST 332 H (15-37) U/L ALT 228 H (16-63) U/L Alkaline Phosphatase 169 H (46-116) U/L Total Protein 5.6 L (6.4-8.2) g/dL Albumin 2.2 L (3.4-5.0) g/dL Globulin 3.4 Albumin/Globulin Ratio 0.65 Result Diagrams: 12/17/20 05:50 12/18/20 06:15 Sepsis Event Note - Evaluation Sepsis Screening Result: No Definite Risk - Focused Exam Vital Signs: Vital Signs Temp Pulse Resp BP Pulse Ox 12/18/20 05:44 98.8 F 86 18 132/83 94 L 12/18/20 01:00 99.4 F 92 20 119/73 94 L 12/17/20 20:00 98.8 F 94 20 104/69 95 - Problem List Review Problem List Initiated/Reviewed/Updated: Yes - My Orders Last 24 Hours: My Active Orders 12/19/20 05:00 CMP [COMPREHENSIVE METABOLIC PN,CMP] [CHEM] Routine - Plan Plan:: Chest pain, rule out ACS. Will monitor patient on telemetry and check serial enzymes and check his age and free T4. Magnesium level within normal notes. In the morning will check fasting lipid panel recheck EKG. Aspirin 81 mg p.o. daily plus Plavix and 5 mg p.o. daily plus Coreg 3.25 mg p.o. twice daily plus Imdur 60 mg p.o. daily. No statin at this time due to transaminitis Medical noncompliance. The patient will be counseled regarding medical compliance Alcohol abuse with alcohol withdrawal. Seizure precautions. IV as needed Ativan per [facility] protocol. Vitamin B12 1000 m P daily plus thiamine 100 mg p.o. daily plus folic acid 1 mg p.o. daily plus multivitamin 1 tab p.o. daily Transaminitis, chronic. Will monitor LFTs periodically with CMP. Patient refused right upper quadrant ultrasound Hypokalemia. Will monitor potassium levels intermittently and supplement as necessary. Telemetry monitoring Hyponatremia. Will monitor sodium levels intermittently. IV normal saline 75 mils per hour Hepatic steatosis Anemia. Will monitor hemoglobin intermittently Thrombocytopenia, likely sequelae of history of alcohol use. Monitor platelet count intermittently Coronary artery disease, status post CA, status post stent. Coreg 3.25 mg p.o. twice daily plus aspirin 81 mg p.o. daily plus Plavix and 5 mg p.o. daily plus Imdur 60 mg p.o. daily. No statin due to transaminitis Diabetes. Will check fasting glucose before every meal and at bedtime and provide some sliding scale plus Metformin 5 mg p.o. daily History gastritis Hyperlipidemia. Will check fasting lipid panel Hypertension. Coreg 3.25 mg p.o. twice daily plus Imdur 60 mg p.o. daily plus lisinopril 5 mg p.o. daily Obesity. Patient be counseled regarding lifestyle education Depression. Zoloft 25 mg p.o. nightly Angina. Imdur 60 mg p.o. daily History of pancreatitis, likely sequelae of history of alcohol use Anxiety Depression History of suicidal ideation History of microscopic hematuria. Outpatient follow-up with urology upon discharge Neuropathy BPH History of gastrointestinal bleed Esophageal varices Poor dentition. Outpatient follow-up with dentistry upon discharge DVT prophylaxis. Bilateral CD Disposition: Anticipate discharge in 24 to 48 hours, however this is entirely dependent on patient's alcohol withdrawal
[2020-12-18] MEDS: metFORMIN 500 MG Tab PO SCH (08:41)
[2020-12-18] MEDS: Multivitamins, Therapeutic with Minerals Tab PO SCH (08:41)
[2020-12-18] MEDS: Clopidogrel 75 MG Tab PO SCH (08:41)
[2020-12-18] MEDS: Cyanocobalamin (Vitamin B12) 1,000 MCG Tab PO SCH (08:41)
[2020-12-18] MEDS: Carvedilol 3.125 MG Tab PO SCH ×2 (08:42→18:26)
[2020-12-18] MEDS: Lisinopril 5 MG Tab PO SCH (08:42)
[2020-12-18] MEDS: Folic Acid 1 MG Tab PO SCH (08:43)
[2020-12-18] MEDS: Aspirin 81 MG Tab.EC PO SCH (08:43)
[2020-12-18] MEDS: Insulin Lispro 100 Units/ML 3 ML Vial SUBCUT SCH ×4 (08:44→22:14)
[2020-12-18] MEDS: Sodium Chloride 0.9% 1,000 ML IV SCH (10:42)
[2020-12-18] MEDS: Sertraline 50 MG Tab PO SCH (22:15)
[2020-12-18] MEDS: Thiamine 100 MG Tab PO SCH (22:16)
[2020-12-19] MEDS: Sodium Chloride 0.9% 1,000 ML IV SCH (00:32)
[2020-12-19] MEDS: LORazepam 2 MG/ML SDV IV PRN (03:26)
[2020-12-19] MEDS: traMADol 50 MG Tab PO PRN (03:27)
[2020-12-19] MEDS: Isosorbide Mononitrate 60 MG Tab.ER PO SCH (06:29)
--- NOTE | 2020-12-19 07:30 | PCM.DCSUM1 ---
Discharge Summary - Hospital Course Free Text/Narrative:: START OF [facility] DISCHARGE SUMMARY Date of Admission: December 15, 2020 Date of Discharge: 7:27 AM on December 19, 2020 Primary Diagnosis: Chest pain, ACS ruled out Secondary Diagnosis: Medical noncompliance Alcohol abuse with alcohol withdrawal Transaminitis, chronic Hypokalemia, status post treatment Hyponatremia Hepatic steatosis Anemia Thrombocytopenia Coronary artery disease, status post [place], status post [place] Diabetes History of gastritis Hyperlipidemia Hypertension Obesity Depression Angina History of pancreatitis, likely sequelae of history of alcohol abuse Anxiety Depression History of suicidal ideation History of microscopic hematuria Neuropathy BPH History of gastrointestinal bleed Esophageal varices Poor dentition Consultations: None Condition on Discharge: Fair Disposition: The patient will be advised to follow-up with alcohol rehabilitation upon discharge which he states he will do following his son's on December 19, 2020 The patient is advised to follow urology within 2 weeks of discharge for diagnosis of history of microscopic hematuria Patient is advised follow-up with dentistry within 2 weeks for diagnosis of poor dentition The patient is advised follow-up with his primary care physician or provider 5 to 7 days post discharge for posthospitalization evaluation Discharge Medications: Lipitor 20 mg p.o. nightly Thiamine 100 mg p.o. nightly Zoloft 25 mg p.o. nightly Multivitamin 1 tab p.o. daily Metformin 500 mg p.o. daily Lisinopril 5 mg p.o. daily Imdur 60 mg p.o. daily Folic acid 1 mg p.o. daily Vitamin B12 1000 g p.o. daily Plavix and 5 mg p.o. daily Coreg 3.25 mg p.o. twice daily Aspirin 81 mg p.o. daily END OF [facility] DISCHARGE SUMMARY - Discharge Data Discharge Date: 12/19/20 Discharge Disposition: Home, Self-Care 01 Condition: Fair - Referral to Home Health Primary Care Physician: PCP None - Patient Summary/Data Consults: Consultations 12/15/20 22:14 Consult to Case Management/[facility] [employer] [CONS] Routine - Patient Instructions Diet: Heart Healthy Diet, Low Sodium, Diabetic Diet Activity: As Tolerated - Discharge Plan Prescriptions/Med Rec: Isosorbide Mononitrate [Imdur] 60 mg PO ACBREAKFAST 30 Days #30 tab.er Home Medications: Home Meds metFORMIN [Glucophage] 500 mg PO DAILY 01/24/19 [History] Clopidogrel [Plavix] 75 mg PO DAILY #30 tablet 11/04/20 [Rx] Sertraline [Zoloft] 25 mg PO BEDTIME #30 tablet 11/04/20 [Rx] carvediloL [Coreg] 3.125 mg PO BID #60 tablet 11/04/20 [Rx] lisinopriL [Prinivil] 5 mg PO DAILY #30 tablet 11/04/20 [Rx] Aspirin [Halfprin] 81 mg PO DAILY tab.ec 11/12/20 [Rx] Cyanocobalamin (Vitamin B12) [Vitamin B12] 1,000 mcg PO DAILY 30 Days #30 tablet 11/12/20 [Rx] Folic Acid 1 mg PO DAILY 30 Days #30 tablet 11/12/20 [Rx] Multivitamins/Minerals [Vitamins and Minerals] 1 tab PO WITHBREAKFAST 30 Days #30 tablet 11/12/20 [Rx] Thiamine [Vitamin B-1] 100 mg PO BEDTIME 30 Days #30 tablet 11/12/20 [Rx] atorvaSTATin Calcium [Atorvastatin Calcium] 20 mg PO DAILY 12/16/20 [History] Isosorbide Mononitrate [Imdur] 60 mg PO ACBREAKFAST 30 Days #30 tab.er 12/19/20 [Rx] Forms: ED Department Discharge Referrals: PCP,None [Primary Care Provider] - - Discharge Summary/Plan Comment DC Time >30 min.: No - Review of Systems General: Reports: No Symptoms HEENT: Reports: No Symptoms Pulmonary: Reports: No Symptoms Cardiovascular: Reports: No Symptoms Gastrointestinal: Reports: No Symptoms Genitourinary: Reports: No Symptoms Musculoskeletal: Reports: No Symptoms Skin: Reports: No Symptoms Neurological: Reports: No Symptoms Psychiatric: Reports: No Symptoms - Patient Data Vitals - Most Recent: Last Vital Signs Temp 99.4 F 12/19/20 03:35 Pulse 76 12/19/20 03:35 Resp 20 12/19/20 03:35 BP 149/91 H 12/19/20 03:35 Pulse Ox 97 12/19/20 03:35 Weight - Most Recent: 223 lb 9.6 oz I&O - Last 24 hours: Intake & Output 12/18/20 12/19/20 12/19/20 22:59 06:59 14:59 Intake Total 395 1152 Output Total 300 Balance 395 852 Lab Results - Last 24 hrs: Laboratory Results - last 24 hr 12/18/20 12/18/20 12/18/20 Range/Units 07:56 12:08 16:37 POC Glucose 182 H 164 H 210 H (70-99) mg/dL 12/18/20 Range/Units 21:18 POC Glucose 153 H (70-99) mg/dL Med Orders - Current: Current Medications Aspirin (Aspirin 81 Mg Tab.Ec) 81 mg PO DAILY [facility] Last Admin: 12/18/20 08:43 Dose: 81 mg Documented by: Carvedilol (Carvedilol 3.125 Mg Tab) 3.125 mg PO BIDMEALS [facility] Last Admin: 12/18/20 18:26 Dose: 3.125 mg Documented by: Clopidogrel Bisulfate (Clopidogrel 75 Mg Tab) 75 mg PO DAILY [facility] Last Admin: 12/18/20 08:41 Dose: 75 mg Documented by: Cyanocobalamin (Cyanocobalamin (Vitamin B12) 1,000 Mcg Tab) 1,000 mcg PO DAILY [facility] Last Admin: 12/18/20 08:41 Dose: 1,000 mcg Documented by: Dextrose/Water (50% Dextrose In Water 50 Ml Syringe) 50 ml IVPUSH Q15M PRN PRN Reason: Hypoglycemia Folic Acid (Folic Acid 1 Mg Tab) 1 mg PO DAILY [facility] Last Admin: 12/18/20 08:43 Dose: 1 mg Documented by: Glucagon (Glucagon,Human Recombinant 1 Mg Vial) 1 mg IM Q15M PRN PRN Reason: Hypoglycemia Sodium Chloride (Normal Saline) 1,000 mls @ 75 mls/hr IV ASDIRECTED [facility] Last Admin: 12/19/20 00:32 Dose: 75 mls/hr Documented by: Insulin Human Lispro (Insulin Lispro 100 Units/Ml 3 Ml Vial) 0 unit SUBCUT WITHMEALSANDBED [facility]; Protocol Last Admin: 12/18/20 22:14 Dose: 1 units Documented by: Isosorbide Mononitrate (Isosorbide Mononitrate 60 Mg Tab.Er) 60 mg PO ACBREAKFAST [facility] Last Admin: 12/19/20 06:29 Dose: 60 mg Documented by: Lisinopril (Lisinopril 5 Mg Tab) 5 mg PO DAILY [facility] Last Admin: 12/18/20 08:42 Dose: 5 mg Documented by: Lorazepam (Lorazepam 2 Mg/Ml Sdv) 1 - 3 mg IV ASDIRECTED PRN; Protocol PRN Reason: alcohol withdrawal Last Admin: 12/19/20 03:26 Dose: 2 mg Documented by: Metformin HCl (Metformin 500 Mg Tab) 500 mg PO WITHBREAKFAST [facility] Last Admin: 12/18/20 08:41 Dose: 500 mg Documented by: Multivitamins/Minerals (Multivitamins, Therapeutic With Minerals Tab) 1 tab PO WITHBREAKFAST [facility] Last Admin: 12/18/20 08:41 Dose: 1 tab Documented by: Ondansetron HCl (Ondansetron 4 Mg/2 Ml Sdv) 4 mg IVPUSH Q4H PRN PRN Reason: Nausea/Vomiting Last Admin: 12/18/20 11:05 Dose: 4 mg Documented by: Sertraline HCl (Sertraline 50 Mg Tab) 25 mg PO BEDTIME [facility] Last Admin: 12/18/20 22:15 Dose: 25 mg Documented by: Sodium Chloride (Sodium Chloride 0.9% 10 Ml Syringe) 10 ml FLUSH ASDIRECTED PRN PRN Reason: Keep Vein Open Thiamine HCl (Thiamine 100 Mg Tab) 100 mg PO BEDTIME [facility] Last Admin: 12/18/20 22:16 Dose: 100 mg Documented by: Tramadol HCl (Tramadol 50 Mg Tab) 100 mg PO Q8H PRN PRN Reason: Pain (severe 7-10) Last Admin: 12/19/20 03:27 Dose: 100 mg Documented by: Discontinued Medications Potassium Chloride 10 meq/ (Premix) 100 mls @ 100 mls/hr IV ONETIME ONE Stop: 12/15/20 20:23 Last Admin: 12/15/20 19:35 Dose: 100 mls/hr Documented by: Sodium Chloride (Normal Saline) 1,000 mls @ 100 mls/hr IV .BOLUS ONE Stop: 12/16/20 05:23 Last Admin: 12/15/20 19:33 Dose: 100 mls/hr Documented by: Iopamidol (Iopamidol 755 Mg/Ml 100 Ml Bottle) 100 ml IVPUSH ONETIME ONE Stop: 12/15/20 19:28 Last Admin: 12/15/20 20:19 Dose: 78 ml Documented by: Isosorbide Mononitrate (Isosorbide Mononitrate 60 Mg Tab.Er) 60 mg PO .STK-MED ONE Stop: 12/16/20 06:01 Lorazepam (Lorazepam 2 Mg/Ml Sdv) 1 mg IVPUSH ONETIME ONE Stop: 12/15/20 19:05 Last Admin: 12/15/20 19:12 Dose: 1 mg Documented by: Lorazepam (Lorazepam 2 Mg/Ml Sdv) 1 mg IV .STK-MED ONE Stop: 12/16/20 05:31 Ondansetron HCl (Ondansetron 4 Mg/2 Ml Sdv) 4 mg IVPUSH ONETIME ONE Stop: 12/15/20 19:05 Last Admin: 12/15/20 19:11 Dose: 4 mg Documented by: Potassium Chloride (Potassium Chloride 10 Meq Tab.Er) 40 meq PO Q2H [facility] Stop: 12/16/20 02:31 Last Admin: 12/16/20 07:11 Dose: Not Given Documented by: Potassium Chloride (Potassium Chloride 10 Meq Tab.Er) 40 meq PO Q2H [facility] Stop: 12/16/20 11:16 Last Admin: 12/16/20 12:00 Dose: 40 meq Documented by: Potassium Chloride (Potassium Chloride 10 Meq Tab.Er) 40 meq PO .STK-MED ONE Stop: 12/16/20 06:01 - Exam General: Reports: Alert, Oriented HEENT: Reports: Pupils Equal, Pupils Reactive, EOMI, Mucous Membr. Moist/[place] Neck: Reports: Supple Lungs: Reports: Clear to Auscultation, Normal Respiratory Effort Cardiovascular: Reports: Regular Rate, Regular Rhythm GI/Abdominal Exam: No Distention (Male) Exam: No Hernia, Normal Inspection, Normal Prostate, Circumcised Extremities: Normal Inspection, Normal Range of Motion, Non-Tender, No Pedal Edema, Normal Capillary Refill Skin: Reports: Warm, Dry, Intact Wound/Incisions: Reports: Healing Well Neurological: Reports: No New Focal Deficit Psy/Mental Status: Reports: Alert, Normal Affect, Normal Mood
[2020-12-19 07:39] LABS: ANION GAP 11.1 mEq/L (7-13); CHLORIDE,CL 101 mmol/L (98-107); SODIUM,NA 138 mmol/L (136-145)
[2020-12-19] MEDS: Carvedilol 3.125 MG Tab PO SCH (08:53)
[2020-12-19] MEDS: Multivitamins, Therapeutic with Minerals Tab PO SCH (08:53)
[2020-12-19] MEDS: Lisinopril 5 MG Tab PO SCH (08:54)
[2020-12-19] MEDS: Aspirin 81 MG Tab.EC PO SCH (08:54)
[2020-12-19] MEDS: Clopidogrel 75 MG Tab PO SCH (08:54)
[2020-12-19] MEDS: metFORMIN 500 MG Tab PO SCH (08:54)
[2020-12-19] MEDS: Folic Acid 1 MG Tab PO SCH (08:54)
[2020-12-19] MEDS: Cyanocobalamin (Vitamin B12) 1,000 MCG Tab PO SCH (08:55)
[2020-12-19] MEDS: Insulin Lispro 100 Units/ML 3 ML Vial SUBCUT SCH ×2 (08:55→12:58)
== END 2020-12-19 13:50 | disposition home or self-care (01) | DRG 897 ==
LOC: DL.ED 18:30 → DL.MS 21:45
PROVIDERS: ADMIT Internal Medicine; ATTEND Internal Medicine
DX: F10.131 Alcohol abuse with withdrawal delirium (principal); E87.1 Hypo-osmolality and hyponatremia; K86.1 Other chronic pancreatitis; I85.00 Esophageal varices without bleeding; R07.9 Chest pain, unspecified; Z91.14 Patient's other noncompliance with medication regimen; E87.6 Hypokalemia; K76.0 Fatty (change of) liver, not elsewhere classified; I25.10 Atherosclerotic heart disease of native coronary artery without angina pectoris; I25.2 Old myocardial infarction; Z95.5 Presence of coronary angioplasty implant and graft; Z79.4 Long term (current) use of insulin; E78.5 Hyperlipidemia, unspecified; D64.9 Anemia, unspecified; D69.6 Thrombocytopenia, unspecified; F32.9 Major depressive disorder, single episode, unspecified; I10 Essential (primary) hypertension; Z68.34 Body mass index [BMI] 34.0-34.9, adult; N40.0 Benign prostatic hyperplasia without lower urinary tract symptoms; E66.9 Obesity, unspecified; E11.40 Type 2 diabetes mellitus with diabetic neuropathy, unspecified; Z20.822 Contact with and (suspected) exposure to COVID-19; F41.9 Anxiety disorder, unspecified
CPT/HCPCS: 36415; 70450; 70486; 71045; 71260; 80053; 80061; 80307; 82009; 82150; 82550; 82947; 83690; 83735; 84439; 84443; 84484; 85025; 85379; 85610; 93005; 99284; A9270-GY; J1815-GY; J2060; J2405; J3480; J7030; Q9967; U0002